=== PATIENT | male | born 1955 | race African-American/Black ===

== ENCOUNTER 2018-10-03 18:27 | Inpatient (IN) | payer MEDICAID, OTHER ==
[~2018-10-03] VITALS: Ht 180.3 cm; Wt 81.9 kg
[2018-10-03 19:05] VITALS: BP 147/76
[2018-10-03 20:08] LABS: ANION GAP 13 mmol/L (5-15); BLOOD UREA NITROGEN 83 mg/dL (7-18); CALCIUM 8.7 MG/DL (8.5-10.1); CARBON DIOXIDE 16 MMOL/L (21-32); CHLORIDE 112 MMOL/L (98-107); CREATININE 6.6 MG/DL (0.55-1.30); POTASSIUM 5.1 MMOL/L (3.5-5.1); SODIUM 141 MMOL/L (136-145)
[2018-10-03 20:10] LABS: EOSINOPHILS % (AUTO) 3.4 % (0.0-3.0); HEMATOCRIT 24.4 % (42.0-52.0); HEMOGLOBIN 8.2 G/DL (14.2-18.0); LYMPHOCYTES % (AUTO) 31.9 % (20.0-45.0); MEAN CORPUSCULAR VOLUME 101 FL (80-99); MONOCYTES % (AUTO) 10.1 % (1.0-10.0); NEUTROPHILS % (AUTO) 53.7 % (45.0-75.0); PLATELET COUNT 150 K/UL (150-450); RED BLOOD COUNT 2.41 M/UL (4.70-6.10); RED CELL DISTRIBUTION WIDTH 12.3 % (11.6-14.8); WHITE BLOOD COUNT 7.7 K/UL (4.8-10.8)
[2018-10-03 20:23] LABS: ALANINE AMINOTRANSFERASE 15 U/L (12-78); ALBUMIN 2.8 G/DL (3.4-5.0); ALBUMIN/GLOBULIN RATIO 0.5 (1.0-2.7); ALKALINE PHOSPHATASE 63 U/L (46-116); ASPARTATE AMINO TRANSFERASE 18 U/L (15-37); BILIRUBIN,TOTAL 0.2 MG/DL (0.2-1.0); CKMB 1.7 NG/ML (0.0-3.6); CREATINE KINASE 87 U/L (26-308)
[2018-10-03 20:45] VITALS: BP 142/92
[2018-10-03 22:00] VITALS: BP 149/91
--- NOTE | 2018-10-03 22:15 | Emergency Room Report ---
History of Present Illness General Chief Complaint: General Complaint Source: Medical Record Present Illness HPI 63-year-old male presents ED for evaluation. Coming from [facility]. Per nursing patient had missed dialysis times one week because he is noncompliant refused to go. Patient has extensive psychiatric history. Upon arrival patient showing no signs of distress. No reported chest pain or shortness of breath. Nonverbal at baseline. No other aggravating relieving factors. No other associated symptoms Allergies: Coded Allergies: FLUPHENAZINE (Verified Allergy, Unknown, 10/03/18) HALOPERIDOL (Verified Allergy, Unknown, 10/03/18) Patient History Past Medical History: psych hx, renal disease, dialysis Past Surgical History: none Pertinent Family History: none Social History: Denies: smoking, alcohol use, drug use Immunizations: UTD Reviewed Nursing Documentation: PMH: Agreed; PSxH: Agreed Nursing Documentation-PMH Past Medical History: No History, Except For Hx Dialysis: Yes - T-Th-Sat / ESRD Review of Systems All Other Systems: limited Physical Exam Vital Signs Date Time Temp Pulse Resp B/P (MAP) Pulse Ox O2 Delivery O2 Flow Rate FiO2 10/03/18 18:28 97.9 85 20 145/88 98 Room Air Sp02 EP Interpretation: reviewed, normal General Appearance: no apparent distress, other - nonverbal Head: normocephalic, atraumatic Eyes: bilateral eye normal inspection, bilateral eye PERRL ENT: hearing grossly normal, normal pharynx, no angioedema, normal voice Neck: full range of motion, supple/symm/no masses Respiratory: chest non-tender, lungs clear, normal breath sounds, speaking full sentences Cardiovascular #1: regular rate, rhythm, no edema Cardiovascular #2: 2+ carotid (R), 2+ carotid (L), 2+ radial (R), 2+ radial (L) , 2+ dorsalis pedis (R), 2+ dorsalis pedis (L) Gastrointestinal: normal bowel sounds, non tender, soft, non-distended, no guarding, no rebound Rectal: deferred Genitourinary: normal inspection, no CVA tenderness Musculoskeletal: back normal, gait/station normal, normal range of motion, non- tender Neurologic: other - nonverbal Psychiatric: other - nonverbal Reflexes: 3+ bicep (R), 3+ bicep (L), 3+ tricep (R), 3+ tricep (L), 3+ knee (R) , 3+ knee (L) Skin: normal color, no rash, warm/dry, well hydrated Lymphatic: no adenopathy Medical Decision Making Diagnostic Impression: Primary Impression: ESRD (end stage renal disease) ER Course Hospital Course 63-year-old M presents ED for dialysis. 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 After initial history and physical I ordered labs, EKG, chest x-ray labs reviewed- BUN/Cr elevated. K 5.1. no leukocytosis, hemoglobin/hematocrit stable EKG - NSR, no acute ischemic changes interpreted by me Chest x-ray- cardiomgaly Case discussed with Dr. Nazario and he agreed to accept the patient to his service for further care and support I. I feel this is a highly complex case requiring extensive working including EKG/Rhythm strip, Xray/CT/US, Blood/urine lab work, repeat exams while in ED, and administration of strong opiates/narcotics for pain control, admission to hospital or close patient follow up. Diagnosis - ESRD admitted to telemetry in serious condition Labs Test 10/03/18 19:25 White Blood Count 7.7 K/UL (4.8-10.8) Red Blood Count 2.41 M/UL (4.70-6.10) Hemoglobin 8.2 G/DL (14.2-18.0) Hematocrit 24.4 % (42.0-52.0) Mean Corpuscular Volume 101 FL (80-99) Mean Corpuscular Hemoglobin 33.9 PG (27.0-31.0) Mean Corpuscular Hemoglobin Concent 33.5 G/DL (32.0-36.0) Red Cell Distribution Width 12.3 % (11.6-14.8) Platelet Count 150 K/UL (150-450) Mean Platelet Volume 6.0 FL (6.5-10.1) Neutrophils (%) (Auto) 53.7 % (45.0-75.0) Lymphocytes (%) (Auto) 31.9 % (20.0-45.0) Monocytes (%) (Auto) 10.1 % (1.0-10.0) Eosinophils (%) (Auto) 3.4 % (0.0-3.0) Basophils (%) (Auto) 1.0 % (0.0-2.0) Sodium Level 141 MMOL/L (136-145) Potassium Level 5.1 MMOL/L (3.5-5.1) Chloride Level 112 MMOL/L (98-107) Carbon Dioxide Level 16 MMOL/L (21-32) Anion Gap 13 mmol/L (5-15) Blood Urea Nitrogen 83 mg/dL (7-18) Creatinine 6.6 MG/DL (0.55-1.30) Estimat Glomerular Filtration Rate 10.4 mL/min (>60) Glucose Level 73 MG/DL (74-106) Calcium Level 8.7 MG/DL (8.5-10.1) Total Bilirubin 0.2 MG/DL (0.2-1.0) Aspartate Amino Transf (AST/SGOT) 18 U/L (15-37) Alanine Aminotransferase (ALT/SGPT) 15 U/L (12-78) Alkaline Phosphatase 63 U/L (46-116) Total Creatine Kinase 87 U/L (26-308) Creatine Kinase MB 1.7 NG/ML (0.0-3.6) Creatine Kinase MB Relative Index 1.9 Troponin I 0.015 ng/mL (0.000-0.056) Pro-B-Type Natriuretic Peptide 3942 pg/mL (0-125) Total Protein 8.2 G/DL (6.4-8.2) Albumin 2.8 G/DL (3.4-5.0) Globulin 5.4 g/dL Albumin/Globulin Ratio 0.5 (1.0-2.7) EKG Diagnostic Results Rate: normal Rhythm: NSR ST Segments: no acute changes ASA given to the pt in ED: No Rhythm Strip Diag. Results EP Interpretation: yes Rhythm: NSR, no PVC's, no ectopy Chest X-Ray Diagnostic Results Chest X-Ray Diagnostic Results : Chest X-Ray Ordered: Yes # of Views/Limited/Complete: 1 View Indication: Shortness of Breath EP Interpretation: Yes Interpretation: no consolidation, no effusion, no pneumothorax, other - cardiomegaly. pulmonary congestion Impression: Other - chf Electronically Signed by: Electronically signed by Tiago Seay MD Last Vital Signs Date Time Temp Pulse Resp B/P (MAP) Pulse Ox O2 Delivery O2 Flow Rate FiO2 10/03/18 21:35 97.9 92 20 142/92 99 Room Air Status: improved Disposition: ADMITTED INPATIENT Condition: Serious Referrals: Bonnie Jones MD (PCP) Tiago Seay MD Oct 03, 2018 22:15
[2018-10-03] MEDS ORDERED: Miralax 17gm pkt ORAL PRN (22:30)
[2018-10-03] MEDS: Docusate 100mg cap ORAL SCH (22:30)
[2018-10-03] MEDS ORDERED: ELIQUIS2.5 MG PO (22:44)
[2018-10-03] MEDS ORDERED: VALPROIC A250 MG/5 M PO (22:44)
[2018-10-03] MEDS ORDERED: NEPHROVITE1 TAB ORAL (22:44)
[2018-10-03] MEDS ORDERED: GERI-KOT8.6 MG PO (22:44)
[2018-10-03] MEDS ORDERED: DECARA50000 UNIT PO (22:44)
[2018-10-03] MEDS ORDERED: PROTONIX40 MG ORAL (22:44)
[2018-10-03] MEDS ORDERED: ZOFRAN4 M3 ORAL (22:44)
[2018-10-03] MEDS ORDERED: IRON325 M1 PO (22:44)
[2018-10-03] MEDS ORDERED: DULCOLAX10 MG RC (22:44)
[2018-10-04] VITALS: BP 134/61
[2018-10-04 04:00] VITALS: BP 111/75
[2018-10-04 08:00] VITALS: BP 123/85
[2018-10-04] MEDS ORDERED: Heparin 5000 units/ml inj SUBQ SCH (09:00)
--- NOTE | 2018-10-04 09:12 | History and Physical ---
History of Present Illness General Date patient seen: Oct 04, 2018 Time patient seen: 09:01 Reason for Hospitalization: General Complaint Present Illness HPI 63 yo male with h/o dvt, esrd on hd, schizophrenia presented from [facility], missed HD for 1 week because he was noncompliant and refused HD. Patient apparently has an extensive psychiatric history and has been seen by psychiatrist in the past. Patient is stable, denies any complaints, denies chest pain or sob. Patient is nonverbal at baseline however when talking to patient he speaks uncomprehendingly.No other aggravating relieving factors. No other associated symptoms. Patient's Potassium was 5.1 on admit, nephrology was consulted by ED. Allergies: Coded Allergies: FLUPHENAZINE (Verified Allergy, Unknown, 10/03/18) HALOPERIDOL (Verified Allergy, Unknown, 10/03/18) Medication History Scheduled Apixaban (Eliquis), 2.5 MG PO BID, (Reported) Cholecalciferol (Vitamin D3) (Decara), 25,000 UNIT PO ONCE A WEEK, (Reported) Ferrous Sulfate (Iron), 325 MG PO DAILY, (Reported) Pantoprazole* (Protonix*), 40 MG ORAL DAILY, (Reported) Sennosides (Magui-Rashida), 8.6 MG PO DAILY, (Reported) Valproate Sodium (Valproic Acid), 500 MG PO TID, (Reported) Vitamin B Cmplx/Vit C/Folic AC (Nephro-Kyree Tablet), 1 TAB ORAL DAILY, (Reported ) Scheduled PRN Ondansetron* (Zofran*), 4 MG ORAL Q6H PRN for Nausea & Vomiting, (Reported) Miscellaneous Medications Bisacodyl (Dulcolax), 10 MG RC, (Reported) Patient History Healthcare decision maker Resuscitation status Full Code Advanced Directive on File Review of Systems Constitutional: Denies: no symptoms, see HPI, chills, sweats, fever, malaise, weakness, other Eye: Denies: no symptoms, see HPI, eye pain, blurred vision, tearing, double vision, nose pain, nose congestion, acuity changes, discharge, other ENT: Denies: no symptoms, see HPI, ear pain, ear discharge, nose pain, nose congestion, throat pain, throat swelling, mouth pain, hearing loss, nasal discharge, other Respiratory: Denies: no symptoms, see HPI, cough, orthopnea, shortness of breath, stridor, wheezing, CRUZ, sputum, other Cardiovascular: Denies: no symptoms, see HPI, chest pain, edema, palpitations, syncope, PND, other Gastrointestinal: Denies: no symptoms, see HPI, abdominal pain, constipation, diarrhea, nausea, vomiting, melena, hematemesis, other Genitourinary: Denies: no symptoms, see HPI, discharge, dysuria, frequency, hematuria, pain, retention, incontinence, urgency, vag bleed/dc, other Musculoskeletal: Denies: no symptoms, see HPI, back pain, gout, joint pain, joint swelling, muscle pain, muscle stiffness, other Skin: Denies: no symptoms, see HPI, rash, change in color, change in hair/nails , dryness, lesions, other Psychiatric: Denies: no symptoms, see HPI, prior hx, anxiety, depressed feelings, emotional problems, SI, HI, hallucinations, other Neurological: Denies: no symptoms, see HPI, headache, numbness, paresthesia, seizure, tingling, tremors, focal weakness, syncope, dizziness, other Endocrine: Denies: no symptoms, see HPI, excessive sweating, flushing, intolerance to temperature, increased thirst, increased urine, unexplained weight loss, other Hematologic/Lymphatic: Denies: no symptoms, see HPI, anemia, blood clots, easy bleeding, easy bruising, swollen glands, diathesis, other Physical Exam General Appearance: no apparent distress, alert Lines, tubes and drains: peripheral HEENT: normocephalic, atraumatic, anicteric, mucous membranes moist, PERRL Neck: non-tender, normal alignment, supple, normal inspection Respiratory/Chest: chest wall non-tender, lungs clear, normal breath sounds, no respiratory distress, no accessory muscle use Cardiovascular/Chest: normal peripheral pulses, normal rate, regular rhythm Abdomen: normal bowel sounds, non tender, soft, no organomegaly, no mass Extremities: normal range of motion, non-tender, normal inspection, no calf tenderness, normal capillary refill 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 normal, no motor/sensory deficits, abnormal gait , alert, unresponsiveness, depressed affect Last 24 Hour Vital Signs Date Time Temp Pulse Resp B/P (MAP) Pulse Ox O2 Delivery O2 Flow Rate FiO2 10/04/18 04:00 82 10/04/18 04:00 98.7 85 20 111/75 (87) 95 10/04/18 00:00 98.4 86 20 134/61 (85) 96 10/03/18 23:20 75 10/03/18 22:47 Room Air 10/03/18 22:00 97.9 74 20 149/91 (110) 97 10/03/18 21:35 97.9 92 20 142/92 99 Room Air 10/03/18 20:45 97.9 92 20 142/92 99 Room Air 10/03/18 19:05 97.9 79 20 147/76 98 Room Air 10/03/18 18:56 85 20 Room Air 10/03/18 18:28 97.9 85 20 145/88 98 Room Air Intake and Output 10/03/18 10/04/18 18:59 06:59 # Voids 1 # Bowel Movements 1 Laboratory Tests Test 10/03/18 19:25 White Blood Count 7.7 K/UL (4.8-10.8) Red Blood Count 2.41 M/UL (4.70-6.10) L Hemoglobin 8.2 G/DL (14.2-18.0) L Hematocrit 24.4 % (42.0-52.0) L Mean Corpuscular Volume 101 FL (80-99) H Mean Corpuscular Hemoglobin 33.9 PG (27.0-31.0) H Mean Corpuscular Hemoglobin Concent 33.5 G/DL (32.0-36.0) Red Cell Distribution Width 12.3 % (11.6-14.8) Platelet Count 150 K/UL (150-450) Mean Platelet Volume 6.0 FL (6.5-10.1) L Neutrophils (%) (Auto) 53.7 % (45.0-75.0) Lymphocytes (%) (Auto) 31.9 % (20.0-45.0) Monocytes (%) (Auto) 10.1 % (1.0-10.0) H Eosinophils (%) (Auto) 3.4 % (0.0-3.0) H Basophils (%) (Auto) 1.0 % (0.0-2.0) Sodium Level 141 MMOL/L (136-145) Potassium Level 5.1 MMOL/L (3.5-5.1) Chloride Level 112 MMOL/L (98-107) H Carbon Dioxide Level 16 MMOL/L (21-32) L Anion Gap 13 mmol/L (5-15) Blood Urea Nitrogen 83 mg/dL (7-18) H Creatinine 6.6 MG/DL (0.55-1.30) H Estimat Glomerular Filtration Rate 10.4 mL/min (>60) Glucose Level 73 MG/DL (74-106) L Calcium Level 8.7 MG/DL (8.5-10.1) Total Bilirubin 0.2 MG/DL (0.2-1.0) Aspartate Amino Transf (AST/SGOT) 18 U/L (15-37) Alanine Aminotransferase (ALT/SGPT) 15 U/L (12-78) Alkaline Phosphatase 63 U/L (46-116) Total Creatine Kinase 87 U/L (26-308) Creatine Kinase MB 1.7 NG/ML (0.0-3.6) Creatine Kinase MB Relative Index 1.9 Troponin I 0.015 ng/mL (0.000-0.056) Pro-B-Type Natriuretic Peptide 3942 pg/mL (0-125) H Total Protein 8.2 G/DL (6.4-8.2) Albumin 2.8 G/DL (3.4-5.0) L Globulin 5.4 g/dL Albumin/Globulin Ratio 0.5 (1.0-2.7) L Height (Feet): 5 Height (Inches): 11.00 Weight (Pounds): 200 Medications Current Medications Medications (Trade) Dose Ordered Sig/Bee Route PRN Reason Start Time Stop Time Status Last Admin Dose Admin Acetaminophen (Tylenol) 650 mg Q4H PRN ORAL Mild Pain (Pain Scale 1-3) 10/03/18 22:30 11/02/18 22:29 Acetaminophen (Tylenol) 650 mg Q4H PRN ORAL fever 10/03/18 22:30 11/02/18 22:29 Apixaban (Eliquis) 5 mg Q12HR ORAL 10/06/18 09:00 11/05/18 08:59 Apixaban (Eliquis) 10 mg Q12HR ORAL 10/04/18 09:00 10/05/18 23:00 Bisacodyl (Dulcolax) 10 mg DAILYPRN PRN RECTAL Constipation 10/03/18 22:30 11/02/18 22:29 Dextrose (Dextrose 50%) 25 ml Q30M PRN IV Hypoglycemia 10/03/18 22:30 11/02/18 22:29 Dextrose (Dextrose 50%) 50 ml Q30M PRN IV Hypoglycemia 10/03/18 22:30 11/02/18 22:29 Docusate Sodium (Colace) 100 mg EVERY 12 HOURS ORAL 10/03/18 22:30 11/02/18 22:29 Ondansetron HCl (Zofran) 4 mg Q6H PRN IVP Nausea & Vomiting 10/03/18 22:30 11/02/18 22:29 Pantoprazole (Protonix) 40 mg DAILY ORAL 10/04/18 09:00 11/03/18 08:59 Polyethylene Glycol (Miralax) 17 gm DAILYPRN PRN ORAL Constipation 10/03/18 22:30 11/02/18 22:29 Valproic Acid (Depakene) 500 mg THREE TIMES A DAY ORAL 10/04/18 09:00 11/03/18 08:59 Vitamin B Complex/ Vit C/Folic Acid (Nephrovite) 1 tab DAILY ORAL 10/04/18 09:00 11/03/18 08:59 Assessment/Plan Problem List: (1) Psychiatric disorder Assessment & Plan: schizophrenia psych consult will need additional med recs ICD Codes: F99 - Mental disorder, not otherwise specified SNOMED: 76585768, 640617520 (2) ESRD (end stage renal disease) Assessment & Plan: on HD has been refusing HD for 1 week K 5.1 nephrology consulted ICD Codes: N18.6 - End stage renal disease SNOMED: 18518950 (3) Hyperkalemia Assessment & Plan: K 5.1 on admit monitor labs HD per nephro ICD Codes: E87.5 - Hyperkalemia SNOMED: 86025357 (4) DVT (deep venous thrombosis) Assessment & Plan: resume home eliquis ICD Codes: I82.409 - Acute embolism and thrombosis of unspecified deep veins of unspecified lower extremity SNOMED: 842943236 Qualifiers: Qualified Codes: I82.509 - Chronic embolism and thrombosis of unspecified deep veins of unspecified lower extremity (5) Schizophrenia Assessment & Plan: psych consulted stable ICD Codes: F20.9 - Schizophrenia, unspecified SNOMED: 94136995 (6) Noncompliance of patient with renal dialysis Assessment & Plan: noncompliant with HD missed hD for one week likely due to psych issues/schizophrenia ICD Codes: Z91.15 - Patient's noncompliance with renal dialysis SNOMED: 314759592798479 Status: stable Assessment/Plan ppx: eliquis diet; renal hd i have spent over 70 minutes regarding patient care and counseling along with over 45 minutes of face to face time. Aleshia Shaffer MD Oct 04, 2018 09:12
[2018-10-04 09:46] LABS: HEMATOCRIT 23.1 % (42.0-52.0); HEMOGLOBIN 7.7 G/DL (14.2-18.0); MEAN CORPUSCULAR VOLUME 97 FL (80-99); PLATELET COUNT 206 K/UL (150-450); RED BLOOD COUNT 2.37 M/UL (4.70-6.10); RED CELL DISTRIBUTION WIDTH 11.9 % (11.6-14.8)
[2018-10-04] MEDS: Nephrovite tab (Rena-Vite) ORAL SCH (09:48)
[2018-10-04] MEDS: Valproic Acid 250mg/5ml Liquid ORAL SCH ×3 (09:49→18:45)
[2018-10-04] MEDS: Docusate 100mg cap ORAL SCH ×3 (09:49→18:45)
[2018-10-04 10:11] LABS: ANION GAP 13 mmol/L (5-15); BLOOD UREA NITROGEN 79 mg/dL (7-18); CALCIUM 8.9 MG/DL (8.5-10.1); CARBON DIOXIDE 18 MMOL/L (21-32); CHLORIDE 113 MMOL/L (98-107); CREATININE 6.8 MG/DL (0.55-1.30); PHOSPHORUS 3.4 MG/DL (2.5-4.9); POTASSIUM 4.8 MMOL/L (3.5-5.1); SODIUM 144 MMOL/L (136-145)
--- NOTE | 2018-10-04 10:14 | Consultation ---
Consult Note Consult Note asked to evaluate for dialysis management 63 yo male with h/o dvt, esrd on hd, schizophrenia presented from [facility], missed HD for 1 week because he was noncompliant and refused HD. Patient apparently has an extensive psychiatric history and has been seen by psychiatrist in the past. Patient is stable, denies any complaints, denies chest pain or sob. Patient is nonverbal at baseline however when talking to patient he speaks uncomprehendingly.No other aggravating relieving factors. No other associated symptoms. Patient's Potassium was 5.1 on admit, nephrology was consulted by ED. Allergies: Coded Allergies: FLUPHENAZINE (Verified Allergy, Unknown, 10/03/18) HALOPERIDOL (Verified Allergy, Unknown, 10/03/18) Assessment/Plan - ESRD (end stage renal disease) - Noncompliance of patient with renal dialysis -Hyperkalemia - Anemia of CKD -DVT (deep venous thrombosis) -Schizophrenia / Psychiatric disorder HD today / refusing ! will attempt tomorrow Per Psych adjust meds per orders Elbert Deng MD Oct 04, 2018 10:14
[2018-10-04 10:54] LABS: FERRITIN 741 NG/ML (8-388)
[2018-10-04] MEDS: Eliquis 2.5mg tablet ORAL SCH ×2 (11:16→21:10)
[2018-10-04 11:18] LABS: % IRON SATURATION 38 % (15-50); IRON 59 ug/dL (50-175); TOTAL IRON BINDING CAPACITY 155 ug/dL (250-450)
--- NOTE | 2018-10-04 11:54 | Diagnostic Imaging Report ---
Indication: Chest pain Technique: One view of the chest Comparison: None Findings: Patient is rotated to the right. There is a right jugular temporary dialysis catheter. There is equivocal perihilar congestive change on the left. The lungs and pleural spaces are otherwise clear. The heart size is upper limits of normal. Impression: Equivocal perihilar congestion Other findings as noted
[2018-10-04 12:00] VITALS: BP 119/70
--- NOTE | 2018-10-04 14:01 | Consultation ---
History of Present Illness General Chief Complaint: General Complaint Present Illness HPI 63 yo male with h/o dvt, esrd on hd, schizophrenia presented from [facility], missed HD for 1 week because he was noncompliant and refused HD. the pt is delusional and grandiose. the pt does not have si/hi Allergies: Coded Allergies: FLUPHENAZINE (Verified Allergy, Unknown, 10/03/18) HALOPERIDOL (Verified Allergy, Unknown, 10/03/18) Medication History Scheduled Apixaban (Eliquis), 2.5 MG PO BID, (Reported) Cholecalciferol (Vitamin D3) (Decara), 25,000 UNIT PO ONCE A WEEK, (Reported) Ferrous Sulfate (Iron), 325 MG PO DAILY, (Reported) Pantoprazole* (Protonix*), 40 MG ORAL DAILY, (Reported) Sennosides (Magui-Rashida), 8.6 MG PO DAILY, (Reported) Valproate Sodium (Valproic Acid), 500 MG PO TID, (Reported) Vitamin B Cmplx/Vit C/Folic AC (Nephro-Kyree Tablet), 1 TAB ORAL DAILY, (Reported ) Scheduled PRN Ondansetron* (Zofran*), 4 MG ORAL Q6H PRN for Nausea & Vomiting, (Reported) Miscellaneous Medications Bisacodyl (Dulcolax), 10 MG RC, (Reported) Patient History Limited by: medical condition History Provided By: Patient, Medical Record, PMD Healthcare decision maker Resuscitation status Full Code Advanced Directive on File Past Medical/Surgical History Past Medical/Surgical History: (1) psych (2) Hyperkalemia (3) Psychiatric disorder (4) ESRD (end stage renal disease) (5) Schizophrenia (6) DVT (deep venous thrombosis) (7) Noncompliance of patient with renal dialysis Review of Systems Psychiatric: Reports: prior hx, anxiety, depressed feelings, hallucinations Physical Exam General Appearance: alert, confused, agitated Neurologic: depressed affect Last 24 Hour Vital Signs Date Time Temp Pulse Resp B/P (MAP) Pulse Ox O2 Delivery O2 Flow Rate FiO2 10/04/18 08:10 Room Air 10/04/18 08:00 99.4 85 16 123/85 (98) 99 10/04/18 04:00 82 10/04/18 04:00 98.7 85 20 111/75 (87) 95 10/04/18 00:00 98.4 86 20 134/61 (85) 96 10/03/18 23:20 75 10/03/18 22:47 Room Air 10/03/18 22:00 97.9 74 20 149/91 (110) 97 10/03/18 21:35 97.9 92 20 142/92 99 Room Air 10/03/18 20:45 97.9 92 20 142/92 99 Room Air 10/03/18 19:05 97.9 79 20 147/76 98 Room Air 10/03/18 18:56 85 20 Room Air 10/03/18 18:28 97.9 85 20 145/88 98 Room Air Intake and Output 10/03/18 10/04/18 19:00 07:00 # Voids 1 # Bowel Movements 1 Laboratory Tests Test 10/03/18 19:25 10/04/18 08:45 White Blood Count 7.7 K/UL (4.8-10.8) 8.0 K/UL (4.8-10.8) Red Blood Count 2.41 M/UL (4.70-6.10) L 2.37 M/UL (4.70-6.10) L Hemoglobin 8.2 G/DL (14.2-18.0) L 7.7 G/DL (14.2-18.0) L Hematocrit 24.4 % (42.0-52.0) L 23.1 % (42.0-52.0) L Mean Corpuscular Volume 101 FL (80-99) H 97 FL (80-99) Mean Corpuscular Hemoglobin 33.9 PG (27.0-31.0) H 32.6 PG (27.0-31.0) H Mean Corpuscular Hemoglobin Concent 33.5 G/DL (32.0-36.0) 33.5 G/DL (32.0-36.0) Red Cell Distribution Width 12.3 % (11.6-14.8) 11.9 % (11.6-14.8) Platelet Count 150 K/UL (150-450) 206 K/UL (150-450) Mean Platelet Volume 6.0 FL (6.5-10.1) L 6.0 FL (6.5-10.1) L Neutrophils (%) (Auto) 53.7 % (45.0-75.0) % (45.0-75.0) Lymphocytes (%) (Auto) 31.9 % (20.0-45.0) % (20.0-45.0) Monocytes (%) (Auto) 10.1 % (1.0-10.0) H % (1.0-10.0) Eosinophils (%) (Auto) 3.4 % (0.0-3.0) H % (0.0-3.0) Basophils (%) (Auto) 1.0 % (0.0-2.0) % (0.0-2.0) Sodium Level 141 MMOL/L (136-145) 144 MMOL/L (136-145) Potassium Level 5.1 MMOL/L (3.5-5.1) 4.8 MMOL/L (3.5-5.1) Chloride Level 112 MMOL/L (98-107) H 113 MMOL/L (98-107) H Carbon Dioxide Level 16 MMOL/L (21-32) L 18 MMOL/L (21-32) L Anion Gap 13 mmol/L (5-15) 13 mmol/L (5-15) Blood Urea Nitrogen 83 mg/dL (7-18) H 79 mg/dL (7-18) H Creatinine 6.6 MG/DL (0.55-1.30) H 6.8 MG/DL (0.55-1.30) H Estimat Glomerular Filtration Rate 10.4 mL/min (>60) 10.1 mL/min (>60) Glucose Level 73 MG/DL (74-106) L 96 MG/DL (74-106) Calcium Level 8.7 MG/DL (8.5-10.1) 8.9 MG/DL (8.5-10.1) Total Bilirubin 0.2 MG/DL (0.2-1.0) Aspartate Amino Transf (AST/SGOT) 18 U/L (15-37) Alanine Aminotransferase (ALT/SGPT) 15 U/L (12-78) Alkaline Phosphatase 63 U/L (46-116) Total Creatine Kinase 87 U/L (26-308) Creatine Kinase MB 1.7 NG/ML (0.0-3.6) Creatine Kinase MB Relative Index 1.9 Troponin I 0.015 ng/mL (0.000-0.056) Pro-B-Type Natriuretic Peptide 3942 pg/mL (0-125) H Total Protein 8.2 G/DL (6.4-8.2) Albumin 2.8 G/DL (3.4-5.0) L Globulin 5.4 g/dL Albumin/Globulin Ratio 0.5 (1.0-2.7) L Differential Total Cells Counted 100 Neutrophils % (Manual) 61 % (45-75) Lymphocytes % (Manual) 26 % (20-45) Monocytes % (Manual) 6 % (1-10) Eosinophils % (Manual) 6 % (0-3) H Basophils % (Manual) 1 % (0-2) Band Neutrophils 0 % (0-8) Platelet Estimate Adequate Platelet Morphology Normal Hypochromasia 3+ Anisocytosis 1+ Spherocytes 1+ Phosphorus Level 3.4 MG/DL (2.5-4.9) Magnesium Level 1.7 MG/DL (1.8-2.4) L Iron Level 59 ug/dL (50-175) Total Iron Binding Capacity 155 ug/dL (250-450) L Percent Iron Saturation 38 % (15-50) Unsaturated Iron Binding 96 ug/dL (112-346) L Ferritin 741 NG/ML (8-388) H C-Reactive Protein, Quantitative 1.0 mg/dL (0.00-0.90) H Vitamin B12 Level 246 PG/ML (193-986) Folate 36.8 NG/ML (8.6-58.9) Height (Feet): 5 Height (Inches): 11.00 Weight (Pounds): 200 Medications Current Medications Medications (Trade) Dose Ordered Sig/Bee Route PRN Reason Start Time Stop Time Status Last Admin Dose Admin Acetaminophen (Tylenol) 650 mg Q4H PRN ORAL Mild Pain (Pain Scale 1-3) 10/03/18 22:30 11/02/18 22:29 Acetaminophen (Tylenol) 650 mg Q4H PRN ORAL fever 10/03/18 22:30 11/02/18 22:29 Apixaban (Eliquis) 5 mg Q12HR ORAL 10/06/18 09:00 11/05/18 08:59 Apixaban (Eliquis) 10 mg Q12HR ORAL 10/04/18 09:00 10/05/18 23:00 10/04/18 11:16 Bisacodyl (Dulcolax) 10 mg DAILYPRN PRN RECTAL Constipation 10/03/18 22:30 11/02/18 22:29 Dextrose (Dextrose 50%) 25 ml Q30M PRN IV Hypoglycemia 10/03/18 22:30 11/02/18 22:29 Dextrose (Dextrose 50%) 50 ml Q30M PRN IV Hypoglycemia 10/03/18 22:30 11/02/18 22:29 Docusate Sodium (Colace) 100 mg TID ORAL 10/04/18 13:00 11/02/18 22:29 Epoetin Jonas (Procrit (for ESRD on dialysis)) 10,000 units WED-WED-WED SUBQ 10/05/18 21:00 11/04/18 20:59 Iron Sucrose 100 mg/Sodium Chloride 60 ml @ 240 mls/hr BEDTIME IV 10/04/18 21:00 10/08/18 21:14 Ondansetron HCl (Zofran) 4 mg Q6H PRN IVP Nausea & Vomiting 10/03/18 22:30 11/02/18 22:29 Pantoprazole (Protonix) 40 mg DAILY ORAL 10/04/18 09:00 11/03/18 08:59 10/04/18 09:48 Polyethylene Glycol (Miralax) 17 gm DAILYPRN PRN ORAL Constipation 10/03/18 22:30 11/02/18 22:29 Valproic Acid (Depakene) 500 mg THREE TIMES A DAY ORAL 10/04/18 09:00 11/03/18 08:59 10/04/18 09:49 Vitamin B Complex/ Vit C/Folic Acid (Nephrovite) 1 tab DAILY ORAL 10/04/18 09:00 11/03/18 08:59 10/04/18 09:48 Assessment/Plan Problem List: (1) Schizophrenia ICD Codes: F20.9 - Schizophrenia, unspecified SNOMED: 58512902 Assessment/Plan haldol dec risperdal depakote valporic acid level Panda Zambrano MD Oct 04, 2018 14:01
--- NOTE | 2018-10-04 14:22 | Consultation ---
Consult Note Consult Note HEMATOLOGY-ONCOLOGY CONSULTATION REFERRING PHYSICIAN: Marcos Jones REASON FOR CONSULT: Anemia, DVT DATE OF CONSULT: 10/04/2018 HPI 63 yo male with h/o dvt, esrd on hd, schizophrenia presented from [facility], missed HD for 1 week because he was noncompliant and refused HD. Patient apparently has an extensive psychiatric history and has been seen by psychiatrist in the past. Patient is stable, denies any complaints, denies chest pain or sob. Patient is nonverbal at baseline however when talking to patient he speaks uncomprehendingly.No other aggravating relieving factors. No other associated symptoms. Hematology services consulted for the evaluation of DVT and anemia. Labs have been reviewed. Pt is currently on Eliquis and IV iron. Allergies: Coded Allergies: FLUPHENAZINE (Verified Allergy, Unknown, 10/03/18) HALOPERIDOL (Verified Allergy, Unknown, 10/03/18) Medication History Scheduled Apixaban (Eliquis), 2.5 MG PO BID, (Reported) Cholecalciferol (Vitamin D3) (Decara), 25,000 UNIT PO ONCE A WEEK, (Reported) Ferrous Sulfate (Iron), 325 MG PO DAILY, (Reported) Pantoprazole* (Protonix*), 40 MG ORAL DAILY, (Reported) Sennosides (Magui-Rashida), 8.6 MG PO DAILY, (Reported) Valproate Sodium (Valproic Acid), 500 MG PO TID, (Reported) Vitamin B Cmplx/Vit C/Folic AC (Nephro-Kyree Tablet), 1 TAB ORAL DAILY, (Reported ) Scheduled PRN Ondansetron* (Zofran*), 4 MG ORAL Q6H PRN for Nausea & Vomiting, (Reported) Miscellaneous Medications Bisacodyl (Dulcolax), 10 MG RC, (Reported) Patient History Healthcare decision maker Resuscitation status Full Code Advanced Directive on File Review of Systems Constitutional: Denies: no symptoms, see HPI, chills, sweats, fever, malaise, weakness, other Eye: Denies: no symptoms, see HPI, eye pain, blurred vision, tearing, double vision, nose pain, nose congestion, acuity changes, discharge, other ENT: Denies: no symptoms, see HPI, ear pain, ear discharge, nose pain, nose congestion, throat pain, throat swelling, mouth pain, hearing loss, nasal discharge, other Respiratory: Denies: no symptoms, see HPI, cough, orthopnea, shortness of breath, stridor, wheezing, CRUZ, sputum, other Cardiovascular: Denies: no symptoms, see HPI, chest pain, edema, palpitations, syncope, PND, other Gastrointestinal: Denies: no symptoms, see HPI, abdominal pain, constipation, diarrhea, nausea, vomiting, melena, hematemesis, other Genitourinary: Denies: no symptoms, see HPI, discharge, dysuria, frequency, hematuria, pain, retention, incontinence, urgency, vag bleed/dc, other Musculoskeletal: Denies: no symptoms, see HPI, back pain, gout, joint pain, joint swelling, muscle pain, muscle stiffness, other Skin: Denies: no symptoms, see HPI, rash, change in color, change in hair/nails , dryness, lesions, other Psychiatric: Denies: no symptoms, see HPI, prior hx, anxiety, depressed feelings, emotional problems, SI, HI, hallucinations, other Neurological: Denies: no symptoms, see HPI, headache, numbness, paresthesia, seizure, tingling, tremors, focal weakness, syncope, dizziness, other Endocrine: Denies: no symptoms, see HPI, excessive sweating, flushing, intolerance to temperature, increased thirst, increased urine, unexplained weight loss, other Hematologic/Lymphatic: Denies: no symptoms, see HPI, anemia, blood clots, easy bleeding, easy bruising, swollen glands, diathesis, other Physical Exam General Appearance: no apparent distress, alert Lines, tubes and drains: peripheral HEENT: normocephalic, atraumatic, anicteric, mucous membranes moist, PERRL Neck: non-tender, normal alignment, supple, normal inspection Respiratory/Chest: chest wall non-tender, lungs clear, normal breath sounds, no respiratory distress, no accessory muscle use Cardiovascular/Chest: normal peripheral pulses, normal rate, regular rhythm Abdomen: normal bowel sounds, non tender, soft, no organomegaly, no mass Extremities: normal range of motion, non-tender, normal inspection, no calf tenderness, normal capillary refill 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, no motor/sensory deficits, abnormal gait , alert, unresponsiveness, depressed affect Laboratory Tests Test 10/03/18 19:25 10/04/18 08:45 White Blood Count 7.7 K/UL (4.8-10.8) 8.0 K/UL (4.8-10.8) Red Blood Count 2.41 M/UL (4.70-6.10) L 2.37 M/UL (4.70-6.10) L Hemoglobin 8.2 G/DL (14.2-18.0) L 7.7 G/DL (14.2-18.0) L Hematocrit 24.4 % (42.0-52.0) L 23.1 % (42.0-52.0) L Mean Corpuscular Volume 101 FL (80-99) H 97 FL (80-99) Mean Corpuscular Hemoglobin 33.9 PG (27.0-31.0) H 32.6 PG (27.0-31.0) H Mean Corpuscular Hemoglobin Concent 33.5 G/DL (32.0-36.0) 33.5 G/DL (32.0-36.0) Red Cell Distribution Width 12.3 % (11.6-14.8) 11.9 % (11.6-14.8) Platelet Count 150 K/UL (150-450) 206 K/UL (150-450) Mean Platelet Volume 6.0 FL (6.5-10.1) L 6.0 FL (6.5-10.1) L Neutrophils (%) (Auto) 53.7 % (45.0-75.0) % (45.0-75.0) Lymphocytes (%) (Auto) 31.9 % (20.0-45.0) % (20.0-45.0) Monocytes (%) (Auto) 10.1 % (1.0-10.0) H % (1.0-10.0) Eosinophils (%) (Auto) 3.4 % (0.0-3.0) H % (0.0-3.0) Basophils (%) (Auto) 1.0 % (0.0-2.0) % (0.0-2.0) Sodium Level 141 MMOL/L (136-145) 144 MMOL/L (136-145) Potassium Level 5.1 MMOL/L (3.5-5.1) 4.8 MMOL/L (3.5-5.1) Chloride Level 112 MMOL/L (98-107) H 113 MMOL/L (98-107) H Carbon Dioxide Level 16 MMOL/L (21-32) L 18 MMOL/L (21-32) L Anion Gap 13 mmol/L (5-15) 13 mmol/L (5-15) Blood Urea Nitrogen 83 mg/dL (7-18) H 79 mg/dL (7-18) H Creatinine 6.6 MG/DL (0.55-1.30) H 6.8 MG/DL (0.55-1.30) H Estimat Glomerular Filtration Rate 10.4 mL/min (>60) 10.1 mL/min (>60) Glucose Level 73 MG/DL (74-106) L 96 MG/DL (74-106) Calcium Level 8.7 MG/DL (8.5-10.1) 8.9 MG/DL (8.5-10.1) Total Bilirubin 0.2 MG/DL (0.2-1.0) Aspartate Amino Transf (AST/SGOT) 18 U/L (15-37) Alanine Aminotransferase (ALT/SGPT) 15 U/L (12-78) Alkaline Phosphatase 63 U/L (46-116) Total Creatine Kinase 87 U/L (26-308) Creatine Kinase MB 1.7 NG/ML (0.0-3.6) Creatine Kinase MB Relative Index 1.9 Troponin I 0.015 ng/mL (0.000-0.056) Pro-B-Type Natriuretic Peptide 3942 pg/mL (0-125) H Total Protein 8.2 G/DL (6.4-8.2) Albumin 2.8 G/DL (3.4-5.0) L Globulin 5.4 g/dL Albumin/Globulin Ratio 0.5 (1.0-2.7) L Differential Total Cells Counted 100 Neutrophils % (Manual) 61 % (45-75) Lymphocytes % (Manual) 26 % (20-45) Monocytes % (Manual) 6 % (1-10) Eosinophils % (Manual) 6 % (0-3) H Basophils % (Manual) 1 % (0-2) Band Neutrophils 0 % (0-8) Platelet Estimate Adequate Platelet Morphology Normal Hypochromasia 3+ Anisocytosis 1+ Spherocytes 1+ Phosphorus Level 3.4 MG/DL (2.5-4.9) Magnesium Level 1.7 MG/DL (1.8-2.4) L Iron Level 59 ug/dL (50-175) Total Iron Binding Capacity 155 ug/dL (250-450) L Percent Iron Saturation 38 % (15-50) Unsaturated Iron Binding 96 ug/dL (112-346) L Ferritin 741 NG/ML (8-388) H C-Reactive Protein, Quantitative 1.0 mg/dL (0.00-0.90) H Vitamin B12 Level 246 PG/ML (193-986) Folate 36.8 NG/ML (8.6-58.9) Current Medications Medications (Trade) Dose Ordered Sig/Bee Route PRN Reason Start Time Stop Time Status Last Admin Dose Admin Acetaminophen (Tylenol) 650 mg Q4H PRN ORAL Mild Pain (Pain Scale 1-3) 10/03/18 22:30 11/02/18 22:29 Acetaminophen (Tylenol) 650 mg Q4H PRN ORAL fever 10/03/18 22:30 11/02/18 22:29 Apixaban (Eliquis) 5 mg Q12HR ORAL 10/06/18 09:00 11/05/18 08:59 Apixaban (Eliquis) 10 mg Q12HR ORAL 10/04/18 09:00 10/05/18 23:00 Bisacodyl (Dulcolax) 10 mg DAILYPRN PRN RECTAL Constipation 10/03/18 22:30 11/02/18 22:29 Dextrose (Dextrose 50%) 25 ml Q30M PRN IV Hypoglycemia 10/03/18 22:30 11/02/18 22:29 Dextrose (Dextrose 50%) 50 ml Q30M PRN IV Hypoglycemia 10/03/18 22:30 11/02/18 22:29 Docusate Sodium (Colace) 100 mg EVERY 12 HOURS ORAL 10/03/18 22:30 11/02/18 22:29 Ondansetron HCl (Zofran) 4 mg Q6H PRN IVP Nausea & Vomiting 10/03/18 22:30 11/02/18 22:29 Pantoprazole (Protonix) 40 mg DAILY ORAL 10/04/18 09:00 11/03/18 08:59 Polyethylene Glycol (Miralax) 17 gm DAILYPRN PRN ORAL Constipation 10/03/18 22:30 11/02/18 22:29 Valproic Acid (Depakene) 500 mg THREE TIMES A DAY ORAL 10/04/18 09:00 11/03/18 08:59 Vitamin B Complex/ Vit C/Folic Acid (Nephrovite) 1 tab DAILY ORAL 10/04/18 09:00 11/03/18 08:59 ASSESSMENT AND RECOMMENDATIONS # Anemia of chronic disease due to underlying chronic medical issues, multifactorial --> Anemia w/u has been reviewed. Ferritin at 741 --> No evidence of hemolysis is noted, peripheral smear has been reviewed. --> Hgb goal >7. Transfuse prn. --> Pt on IV iron x5 days --> Cont po folic acid daily --> Cont Procrit 3x a week per nephro # DVT. Pt is on eliquis. --> has not worsened # ESRD. On HD --> Nephrology is following. Appreciate recs. --> Pt is noncompliant with HD # Psych disorder. Psych to follow. # Hyperkalemia. K 5.1 at admission # Noncompliance GREATLY APPRECIATE CONSULTATION. Ulices Lanza MD Oct 04, 2018 14:21
[2018-10-04] MEDS ORDERED: Haloperidol Decanoate 50mg Inj IM SCH (15:00)
[2018-10-04 16:00] VITALS: BP 134/81
[2018-10-04 20:00] VITALS: BP 115/75
[2018-10-04] MEDS: Iron Sucrose 100 MG in NS 55 ML IV SCH (21:10)
[2018-10-05] VITALS: BP 124/70
[2018-10-05] MEDS: Iron Sucrose 100 MG in NS 55 ML IV SCH ×2 (00:33→20:29)
[2018-10-05 04:00] VITALS: BP 139/69
[2018-10-05 06:32] LABS: BASOPHILS % (AUTO) 0.5 % (0.0-2.0); EOSINOPHILS % (AUTO) 3.2 % (0.0-3.0); HEMATOCRIT 23.5 % (42.0-52.0); LYMPHOCYTES % (AUTO) 29.6 % (20.0-45.0); MEAN CORPUSCULAR VOLUME 97 FL (80-99); MONOCYTES % (AUTO) 8.2 % (1.0-10.0); NEUTROPHILS % (AUTO) 58.5 % (45.0-75.0); PLATELET COUNT 200 K/UL (150-450); RED BLOOD COUNT 2.43 M/UL (4.70-6.10); RED CELL DISTRIBUTION WIDTH 11.4 % (11.6-14.8); WHITE BLOOD COUNT 9.1 K/UL (4.8-10.8)
[2018-10-05 07:16] LABS: ALANINE AMINOTRANSFERASE 14 U/L (12-78); ALBUMIN 2.6 G/DL (3.4-5.0); ALBUMIN/GLOBULIN RATIO 0.5 (1.0-2.7); ALKALINE PHOSPHATASE 56 U/L (46-116); ANION GAP 12 mmol/L (5-15); ASPARTATE AMINO TRANSFERASE 13 U/L (15-37); BILIRUBIN,TOTAL 0.3 MG/DL (0.2-1.0); BLOOD UREA NITROGEN 84 mg/dL (7-18); CALCIUM 8.9 MG/DL (8.5-10.1); CARBON DIOXIDE 18 MMOL/L (21-32); CHLORIDE 113 MMOL/L (98-107); CHOLESTEROL 120 MG/DL (< 200); CREATININE 6.7 MG/DL (0.55-1.30); GAMMA GLUTAMYL TRANSPEPTIDASE 24 U/L (5-85); HDL CHOLESTEROL 45 MG/DL (40-60); PHOSPHORUS 3.6 MG/DL (2.5-4.9); SODIUM 143 MMOL/L (136-145); TRIGLYCERIDES 68 MG/DL (30-150)
[2018-10-05 08:00] VITALS: BP 134/83
--- NOTE | 2018-10-05 08:57 | History and Physical ---
History of Present Illness General Date patient seen: Oct 05, 2018 Time patient seen: 08:56 Reason for Hospitalization: General Complaint Present Illness HPI 63 yo male with h/o dvt, esrd on hd, schizophrenia presented from [facility], missed HD for 1 week because he was noncompliant and refused HD. Patient apparently has an extensive psychiatric history and has been seen by psychiatrist in the past. Patient is stable, denies any complaints, denies chest pain or sob. Patient is nonverbal at baseline however when talking to patient he speaks uncomprehendingly.No other aggravating relieving factors. No other associated symptoms. Patient's Potassium was 5.1 on admit, nephrology was consulted by ED. Patient was admitted as observation status in anticipation that patient would receive HD and would be discharge back to [facility] however patient had refused HD overnight. psych has also evaluated the patient and started him on psych medications. patient seems a bit more calm today however still says things that do not make sense in terms of the conversation patient states he may be willing to undergo HD today. he denies any chest pain or sob, denies any complaints social hx: reviewed, denies smoking, alcohol use or drug use fam hx: reviewed, denies any sig past fam hx to me code status reviewed, would like to remain full code. Allergies: Coded Allergies: FLUPHENAZINE (Verified Allergy, Unknown, 10/03/18) HALOPERIDOL (Verified Allergy, Unknown, 10/03/18) Medication History Scheduled Apixaban (Eliquis), 2.5 MG PO BID, (Reported) Cholecalciferol (Vitamin D3) (Decara), 25,000 UNIT PO ONCE A WEEK, (Reported) Ferrous Sulfate (Iron), 325 MG PO DAILY, (Reported) Pantoprazole* (Protonix*), 40 MG ORAL DAILY, (Reported) Sennosides (Magui-Rashida), 8.6 MG PO DAILY, (Reported) Valproate Sodium (Valproic Acid), 500 MG PO TID, (Reported) Vitamin B Cmplx/Vit C/Folic AC (Nephro-Kyree Tablet), 1 TAB ORAL DAILY, (Reported ) Scheduled PRN Ondansetron* (Zofran*), 4 MG ORAL Q6H PRN for Nausea & Vomiting, (Reported) Miscellaneous Medications Bisacodyl (Dulcolax), 10 MG RC, (Reported) Patient History History Provided By: Patient Healthcare decision maker Resuscitation status Full Code Advanced Directive on File Review of Systems ROS Narrative 14 point ROS completed and reviewed, negative except per HPI Physical Exam HEENT: normocephalic, atraumatic, anicteric, mucous membranes moist, PERRL Neck: non-tender, normal alignment, supple, normal inspection, limited range of motion Respiratory/Chest: chest wall non-tender, lungs clear, normal breath sounds, no respiratory distress, no accessory muscle use Cardiovascular/Chest: normal peripheral pulses, normal rate, regular rhythm Abdomen: normal bowel sounds, non tender, soft, no organomegaly, no mass Extremities: normal range of motion, non-tender, normal inspection, no calf tenderness Skin Exam: normal pigmentation 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, no motor/sensory deficits, alert, responsive, normal mood/affect Last 24 Hour Vital Signs Date Time Temp Pulse Resp B/P (MAP) Pulse Ox O2 Delivery O2 Flow Rate FiO2 10/05/18 04:00 76 10/05/18 04:00 99.8 88 18 139/69 (92) 95 10/05/18 00:00 83 10/05/18 00:00 98.9 88 18 124/70 (88) 96 10/04/18 21:00 Room Air 10/04/18 20:00 98.9 90 18 115/75 (88) 97 10/04/18 20:00 94 10/04/18 16:12 85 10/04/18 16:00 99.8 79 18 134/81 (98) 97 10/04/18 12:00 99.1 80 18 119/70 (86) 99 10/04/18 11:27 86 Intake and Output 10/04/18 10/05/18 18:59 06:59 Intake Total 360 ml Output Total 1150 ml Balance -790 ml Intake Oral 360 ml Output Urine Total 1150 ml Laboratory Tests Test 10/05/18 06:09 White Blood Count 9.1 K/UL (4.8-10.8) Red Blood Count 2.43 M/UL (4.70-6.10) L Hemoglobin 8.0 G/DL (14.2-18.0) L Hematocrit 23.5 % (42.0-52.0) L Mean Corpuscular Volume 97 FL (80-99) Mean Corpuscular Hemoglobin 32.8 PG (27.0-31.0) H Mean Corpuscular Hemoglobin Concent 33.8 G/DL (32.0-36.0) Red Cell Distribution Width 11.4 % (11.6-14.8) L Platelet Count 200 K/UL (150-450) Mean Platelet Volume 5.6 FL (6.5-10.1) L Neutrophils (%) (Auto) 58.5 % (45.0-75.0) Lymphocytes (%) (Auto) 29.6 % (20.0-45.0) Monocytes (%) (Auto) 8.2 % (1.0-10.0) Eosinophils (%) (Auto) 3.2 % (0.0-3.0) H Basophils (%) (Auto) 0.5 % (0.0-2.0) Sodium Level 143 MMOL/L (136-145) Potassium Level 5.0 MMOL/L (3.5-5.1) Chloride Level 113 MMOL/L (98-107) H Carbon Dioxide Level 18 MMOL/L (21-32) L Anion Gap 12 mmol/L (5-15) Blood Urea Nitrogen 84 mg/dL (7-18) H Creatinine 6.7 MG/DL (0.55-1.30) H Estimat Glomerular Filtration Rate 10.2 mL/min (>60) Glucose Level 71 MG/DL (74-106) L Hemoglobin A1c 4.4 % (4.3-6.0) Uric Acid 8.3 MG/DL (2.6-7.2) H Calcium Level 8.9 MG/DL (8.5-10.1) Phosphorus Level 3.6 MG/DL (2.5-4.9) Magnesium Level 1.6 MG/DL (1.8-2.4) L Total Bilirubin 0.3 MG/DL (0.2-1.0) Gamma Glutamyl Transpeptidase 24 U/L (5-85) Aspartate Amino Transf (AST/SGOT) 13 U/L (15-37) L Alanine Aminotransferase (ALT/SGPT) 14 U/L (12-78) Alkaline Phosphatase 56 U/L (46-116) Pro-B-Type Natriuretic Peptide 6689 pg/mL (0-125) H Total Protein 7.9 G/DL (6.4-8.2) Albumin 2.6 G/DL (3.4-5.0) L Globulin 5.3 g/dL Albumin/Globulin Ratio 0.5 (1.0-2.7) L Triglycerides Level 68 MG/DL (30-150) Cholesterol Level 120 MG/DL (< 200) LDL Cholesterol 74 mg/dL (<100) HDL Cholesterol 45 MG/DL (40-60) Cholesterol/HDL Ratio 2.7 (3.3-4.4) L Thyroid Stimulating Hormone (TSH) 0.485 uiU/mL (0.358-3.740) Valproic Acid (Depakene) Level 20 MCG/ML (50-100) L Height (Feet): 5 Height (Inches): 11.00 Weight (Pounds): 191 Medications Current Medications Medications (Trade) Dose Ordered Sig/Bee Route PRN Reason Start Time Stop Time Status Last Admin Dose Admin Acetaminophen (Tylenol) 650 mg Q4H PRN ORAL Mild Pain (Pain Scale 1-3) 10/03/18 22:30 11/02/18 22:29 Acetaminophen (Tylenol) 650 mg Q4H PRN ORAL fever 10/03/18 22:30 11/02/18 22:29 Apixaban (Eliquis) 5 mg Q12HR ORAL 10/06/18 09:00 11/05/18 08:59 Apixaban (Eliquis) 10 mg Q12HR ORAL 10/04/18 09:00 10/05/18 23:00 10/04/18 21:10 Bisacodyl (Dulcolax) 10 mg DAILYPRN PRN RECTAL Constipation 10/03/18 22:30 11/02/18 22:29 Dextrose (Dextrose 50%) 25 ml Q30M PRN IV Hypoglycemia 10/03/18 22:30 11/02/18 22:29 Dextrose (Dextrose 50%) 50 ml Q30M PRN IV Hypoglycemia 10/03/18 22:30 11/02/18 22:29 Docusate Sodium (Colace) 100 mg TID ORAL 10/04/18 13:00 11/02/18 22:29 10/04/18 13:59 Epoetin Jonas (Procrit (for ESRD on dialysis)) 10,000 units WED-WED-WED SUBQ 10/05/18 21:00 11/04/18 20:59 Iron Sucrose 100 mg/Sodium Chloride 60 ml @ 240 mls/hr BEDTIME IV 10/04/18 21:00 10/08/18 21:14 10/05/18 00:33 Ondansetron HCl (Zofran) 4 mg Q6H PRN IVP Nausea & Vomiting 10/03/18 22:30 11/02/18 22:29 Pantoprazole (Protonix) 40 mg DAILY ORAL 10/04/18 09:00 11/03/18 08:59 10/04/18 09:48 Polyethylene Glycol (Miralax) 17 gm DAILYPRN PRN ORAL Constipation 10/03/18 22:30 11/02/18 22:29 Risperidone (RisperDAL) 2 mg BEDTIME ORAL 10/04/18 21:00 11/03/18 20:59 10/04/18 21:11 Valproic Acid (Depakene) 500 mg THREE TIMES A DAY ORAL 10/04/18 09:00 11/03/18 08:59 10/04/18 13:59 Vitamin B Complex/ Vit C/Folic Acid (Nephrovite) 1 tab DAILY ORAL 10/04/18 09:00 11/03/18 08:59 10/04/18 09:48 Assessment/Plan Problem List: (1) Psychiatric disorder Assessment & Plan: schizophrenia psych consult will need additional med recs ICD Codes: F99 - Mental disorder, not otherwise specified SNOMED: 03090262, 155145117 (2) ESRD (end stage renal disease) Assessment & Plan: on HD has been refusing HD for 1 week K 5.1 on admit, now 4.8 refused HD yesterday evening, states he will do it today nephrology consulted ICD Codes: N18.6 - End stage renal disease SNOMED: 21181417 (3) Hyperkalemia Assessment & Plan: K 5.1 on admit, K 4.8 today.. still refused HD yesterday monitor labs HD per nephro ICD Codes: E87.5 - Hyperkalemia SNOMED: 76175937 (4) DVT (deep venous thrombosis) Assessment & Plan: resume home eliquis ICD Codes: I82.409 - Acute embolism and thrombosis of unspecified deep veins of unspecified lower extremity SNOMED: 684756550 Qualifiers: Qualified Codes: I82.509 - Chronic embolism and thrombosis of unspecified deep veins of unspecified lower extremity (5) Schizophrenia Assessment & Plan: psych consulted appreciate recs placed on psych meds monitor currently stable ICD Codes: F20.9 - Schizophrenia, unspecified SNOMED: 24268753 (6) Noncompliance of patient with renal dialysis Assessment & Plan: noncompliant with HD missed hD for one week refused HD yesterday likely due to psych issues/schizophrenia ICD Codes: Z91.15 - Patient's noncompliance with renal dialysis SNOMED: 525675626530481 (7) Anemia in chronic kidney disease, on chronic dialysis Assessment & Plan: hgb 8 stable mcv 99 to 101 continue to monitor no acute bleeding due to esrd on hd nephro following ICD Codes: N18.6 - End stage renal disease; D63.1 - Anemia in chronic kidney disease; Z99.2 - Dependence on renal dialysis SNOMED: 031073657, 201969347, 115877279 Status: stable Assessment/Plan ppx: eliquis diet; renal hd patient to be admitted under inpatient care as patient will require 2-3 nights stay due to complications of noncompliance with HD and schizophrenia. i have spent over 56 minutes regarding patient care and counseling along with over 39 minutes of face to face time. Aleshia Shaffer MD Oct 05, 2018 08:57
[2018-10-05] MEDS: Nephrovite tab (Rena-Vite) ORAL SCH (09:24)
[2018-10-05] MEDS: Eliquis 2.5mg tablet ORAL SCH ×2 (09:25→20:30)
[2018-10-05] MEDS: Valproic Acid 250mg/5ml Liquid ORAL SCH ×3 (09:25→18:13)
[2018-10-05] MEDS: Docusate 100mg cap ORAL SCH ×3 (09:26→18:12)
--- NOTE | 2018-10-05 10:47 | Nephrology Progress Note ---
Assessment/Plan Problem List: (1) Anemia in chronic kidney disease, on chronic dialysis (2) ESRD (end stage renal disease) (3) Psychiatric disorder Assessment - ESRD (end stage renal disease) - Noncompliance of patient with renal dialysis -Hyperkalemia - Anemia of CKD -DVT (deep venous thrombosis) -Schizophrenia / Psychiatric disorder Plan HD today Per Psych adjust meds B12 per orders Subjective ROS Limited/Unobtainable: No Constitutional: Reports: malaise Objective Objective Last 24 Hour Vital Signs Date Time Temp Pulse Resp B/P (MAP) Pulse Ox O2 Delivery O2 Flow Rate FiO2 10/05/18 08:10 Room Air 10/05/18 08:00 98.1 94 20 134/83 (100) 95 10/05/18 07:58 98 10/05/18 04:00 76 10/05/18 04:00 99.8 88 18 139/69 (92) 95 10/05/18 00:00 83 10/05/18 00:00 98.9 88 18 124/70 (88) 96 10/04/18 21:00 Room Air 10/04/18 20:00 98.9 90 18 115/75 (88) 97 10/04/18 20:00 94 10/04/18 16:12 85 10/04/18 16:00 99.8 79 18 134/81 (98) 97 10/04/18 12:00 99.1 80 18 119/70 (86) 99 10/04/18 11:27 86 Intake and Output 10/04/18 10/05/18 18:59 06:59 Intake Total 360 ml Output Total 1150 ml Balance -790 ml Intake Oral 360 ml Output Urine Total 1150 ml Laboratory Tests 10/05/18 06:09: White Blood Count 9.1, Red Blood Count 2.43L, Hemoglobin 8.0L, Hematocrit 23.5L , Mean Corpuscular Volume 97, Mean Corpuscular Hemoglobin 32.8H, Mean Corpuscular Hemoglobin Concent 33.8, Red Cell Distribution Width 11.4L, Platelet Count 200, Mean Platelet Volume 5.6L, Neutrophils (%) (Auto) 58.5, Lymphocytes (%) (Auto) 29.6, Monocytes (%) (Auto) 8.2, Eosinophils (%) (Auto) 3.2H, Basophils (%) (Auto) 0.5, Sodium Level 143, Potassium Level 5.0, Chloride Level 113H, Carbon Dioxide Level 18L, Anion Gap 12, Blood Urea Nitrogen 84H, Creatinine 6.7H, Estimat Glomerular Filtration Rate 10.2, Glucose Level 71L, Hemoglobin A1c 4.4, Uric Acid 8.3H, Calcium Level 8.9, Phosphorus Level 3.6, Magnesium Level 1.6L, Total Bilirubin 0.3, Gamma Glutamyl Transpeptidase 24, Aspartate Amino Transf (AST/SGOT) 13L, Alanine Aminotransferase (ALT/SGPT) 14, Alkaline Phosphatase 56, Pro-B-Type Natriuretic Peptide 6689H, Total Protein 7.9 , Albumin 2.6L, Globulin 5.3, Albumin/Globulin Ratio 0.5L, Triglycerides Level 68, Cholesterol Level 120, LDL Cholesterol 74, HDL Cholesterol 45, Cholesterol/ HDL Ratio 2.7L, Thyroid Stimulating Hormone (TSH) 0.485, Valproic Acid (Depakene ) Level 20L Height (Feet): 5 Height (Inches): 11.00 Weight (Pounds): 191 General Appearance: no apparent distress Cardiovascular: normal rate Respiratory/Chest: lungs clear Abdomen: soft Elbert Deng MD Oct 05, 2018 10:47
[2018-10-05 12:00] VITALS: BP 132/75
[2018-10-05] MEDS ORDERED: Vitamin B12 1000mcg/ml Inj IM SCH (12:00)
[2018-10-05] MEDS ORDERED: Vitamin B12 1000mcg/ml Inj SUBQ SCH (13:00)
--- NOTE | 2018-10-05 14:01 | General Progress Note ---
Assessment/Plan Problem List: (1) Schizophrenia ICD Codes: F20.9 - Schizophrenia, unspecified SNOMED: 71204843 Status: unchanged Assessment/Plan haldol dec risperdal depakote valporic acid level Subjective Neurologic/Psychiatric: Reports: anxiety, depressed, emotional problems Allergies: Coded Allergies: FLUPHENAZINE (Verified Allergy, Unknown, 10/03/18) HALOPERIDOL (Verified Allergy, Unknown, 10/03/18) Objective Last 24 Hour Vital Signs Date Time Temp Pulse Resp B/P (MAP) Pulse Ox O2 Delivery O2 Flow Rate FiO2 10/05/18 12:00 97.8 95 21 132/75 (94) 95 10/05/18 08:10 Room Air 10/05/18 08:00 98.1 94 20 134/83 (100) 95 10/05/18 07:58 98 10/05/18 04:00 76 10/05/18 04:00 99.8 88 18 139/69 (92) 95 10/05/18 00:00 83 10/05/18 00:00 98.9 88 18 124/70 (88) 96 10/04/18 21:00 Room Air 10/04/18 20:00 98.9 90 18 115/75 (88) 97 10/04/18 20:00 94 10/04/18 16:12 85 10/04/18 16:00 99.8 79 18 134/81 (98) 97 Intake and Output 10/04/18 10/05/18 19:00 07:00 Intake Total 360 ml Output Total 1150 ml Balance -790 ml Intake Oral 360 ml Output Urine Total 1150 ml Laboratory Tests 10/05/18 06:09: White Blood Count 9.1, Red Blood Count 2.43L, Hemoglobin 8.0L, Hematocrit 23.5L , Mean Corpuscular Volume 97, Mean Corpuscular Hemoglobin 32.8H, Mean Corpuscular Hemoglobin Concent 33.8, Red Cell Distribution Width 11.4L, Platelet Count 200, Mean Platelet Volume 5.6L, Neutrophils (%) (Auto) 58.5, Lymphocytes (%) (Auto) 29.6, Monocytes (%) (Auto) 8.2, Eosinophils (%) (Auto) 3.2H, Basophils (%) (Auto) 0.5, Sodium Level 143, Potassium Level 5.0, Chloride Level 113H, Carbon Dioxide Level 18L, Anion Gap 12, Blood Urea Nitrogen 84H, Creatinine 6.7H, Estimat Glomerular Filtration Rate 10.2, Glucose Level 71L, Hemoglobin A1c 4.4, Uric Acid 8.3H, Calcium Level 8.9, Phosphorus Level 3.6, Magnesium Level 1.6L, Total Bilirubin 0.3, Gamma Glutamyl Transpeptidase 24, Aspartate Amino Transf (AST/SGOT) 13L, Alanine Aminotransferase (ALT/SGPT) 14, Alkaline Phosphatase 56, Pro-B-Type Natriuretic Peptide 6689H, Total Protein 7.9 , Albumin 2.6L, Globulin 5.3, Albumin/Globulin Ratio 0.5L, Triglycerides Level 68, Cholesterol Level 120, LDL Cholesterol 74, HDL Cholesterol 45, Cholesterol/ HDL Ratio 2.7L, Thyroid Stimulating Hormone (TSH) 0.485, Valproic Acid (Depakene ) Level 20L Height (Feet): 5 Height (Inches): 11.00 Weight (Pounds): 191 General Appearance: alert, confused, agitated Panda Zambrano MD Oct 05, 2018 14:01
--- NOTE | 2018-10-05 14:52 | General Progress Note ---
Assessment/Plan Status: stable Assessment/Plan # Anemia of chronic disease due to underlying chronic medical issues, multifactorial --> Anemia w/u has been reviewed. Ferritin at 741 --> No evidence of hemolysis is noted, peripheral smear has been reviewed. --> Hgb goal >7. Transfuse prn. --> Pt on IV iron x5 days --> Cont po folic acid daily --> Cont Procrit 3x a week per nephro # DVT. Pt is on eliquis. --> has not worsened --> continue on eliquis # ESRD. On HD --> Nephrology is following. Appreciate recs. --> Pt is noncompliant with HD # Psych disorder. Psych to follow. # Hyperkalemia. K 5.1 at admission # Noncompliance GREATLY APPRECIATE CONSULTATION. Subjective Date patient seen: Oct 05, 2018 Hematologic/Lymphatic: Reports: anemia Allergies: Coded Allergies: FLUPHENAZINE (Verified Allergy, Unknown, 10/03/18) HALOPERIDOL (Verified Allergy, Unknown, 10/03/18) All Systems: reviewed and negative except above Subjective Pt awake and alert. No acute events. H/H stable. Objective Last 24 Hour Vital Signs Date Time Temp Pulse Resp B/P (MAP) Pulse Ox O2 Delivery O2 Flow Rate FiO2 10/05/18 12:00 97.8 95 21 132/75 (94) 95 10/05/18 08:10 Room Air 10/05/18 08:00 98.1 94 20 134/83 (100) 95 10/05/18 07:58 98 10/05/18 04:00 76 10/05/18 04:00 99.8 88 18 139/69 (92) 95 10/05/18 00:00 83 10/05/18 00:00 98.9 88 18 124/70 (88) 96 10/04/18 21:00 Room Air 10/04/18 20:00 98.9 90 18 115/75 (88) 97 10/04/18 20:00 94 10/04/18 16:12 85 10/04/18 16:00 99.8 79 18 134/81 (98) 97 Intake and Output 10/04/18 10/05/18 19:00 07:00 Intake Total 360 ml Output Total 1150 ml Balance -790 ml Intake Oral 360 ml Output Urine Total 1150 ml Laboratory Tests 10/05/18 06:09: White Blood Count 9.1, Red Blood Count 2.43L, Hemoglobin 8.0L, Hematocrit 23.5L , Mean Corpuscular Volume 97, Mean Corpuscular Hemoglobin 32.8H, Mean Corpuscular Hemoglobin Concent 33.8, Red Cell Distribution Width 11.4L, Platelet Count 200, Mean Platelet Volume 5.6L, Neutrophils (%) (Auto) 58.5, Lymphocytes (%) (Auto) 29.6, Monocytes (%) (Auto) 8.2, Eosinophils (%) (Auto) 3.2H, Basophils (%) (Auto) 0.5, Sodium Level 143, Potassium Level 5.0, Chloride Level 113H, Carbon Dioxide Level 18L, Anion Gap 12, Blood Urea Nitrogen 84H, Creatinine 6.7H, Estimat Glomerular Filtration Rate 10.2, Glucose Level 71L, Hemoglobin A1c 4.4, Uric Acid 8.3H, Calcium Level 8.9, Phosphorus Level 3.6, Magnesium Level 1.6L, Total Bilirubin 0.3, Gamma Glutamyl Transpeptidase 24, Aspartate Amino Transf (AST/SGOT) 13L, Alanine Aminotransferase (ALT/SGPT) 14, Alkaline Phosphatase 56, Pro-B-Type Natriuretic Peptide 6689H, Total Protein 7.9 , Albumin 2.6L, Globulin 5.3, Albumin/Globulin Ratio 0.5L, Triglycerides Level 68, Cholesterol Level 120, LDL Cholesterol 74, HDL Cholesterol 45, Cholesterol/ HDL Ratio 2.7L, Thyroid Stimulating Hormone (TSH) 0.485, Valproic Acid (Depakene ) Level 20L Height (Feet): 5 Height (Inches): 11.00 Weight (Pounds): 191 Objective General Appearance: no apparent distress, alert Lines, tubes and drains: peripheral HEENT: normocephalic, atraumatic, anicteric, mucous membranes moist, PERRL Neck: non-tender, normal alignment, supple, normal inspection Respiratory/Chest: chest wall non-tender, lungs clear, normal breath sounds, no respiratory distress, no accessory muscle use Cardiovascular/Chest: normal peripheral pulses, normal rate, regular rhythm Abdomen: normal bowel sounds, non tender, soft, no organomegaly, no mass Extremities: normal range of motion, non-tender, normal inspection, no calf tenderness, normal capillary refill 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
[2018-10-05 16:00] VITALS: BP 117/71
--- NOTE | 2018-10-05 17:56 | Cardiology Report ---
APPROVED REPORT EKG Measurement Heart [id number] Normal sinus rhythm Nonspecific T wave abnormality Abnormal ECG
[2018-10-05 20:00] VITALS: BP 139/79
[2018-10-05] MEDS ORDERED: Iron Sucrose 100 MG in NS 55 ML IV SCH (21:00)
[2018-10-05] MEDS ORDERED: Epogen (for ESRD on dialysis) SUBQ SCH (21:00)
[2018-10-06] VITALS: BP 124/84
[2018-10-06 04:00] VITALS: BP 132/85
--- NOTE | 2018-10-06 06:46 | General Progress Note ---
Assessment/Plan Status: stable Assessment/Plan # Anemia of chronic disease due to underlying chronic medical issues, multifactorial --> Anemia w/u has been reviewed. Ferritin at 741 --> No evidence of hemolysis is noted, peripheral smear has been reviewed. --> Hgb goal >7. Transfuse prn. --> Pt on IV iron x5 days through 10/08 --> Cont po folic acid daily --> Cont Procrit 3x a week per nephro # DVT. Pt is on eliquis. --> has not worsened --> continue on eliquis # ESRD. On HD --> Nephrology is following. Appreciate recs. --> Pt is noncompliant with HD # Psych disorder. Psych to follow. # Hyperkalemia. K 5.1 at admission --> Currently at 5.0, wnl # Noncompliance GREATLY APPRECIATE CONSULTATION. Subjective Date patient seen: Oct 06, 2018 Hematologic/Lymphatic: Reports: anemia Allergies: Coded Allergies: FLUPHENAZINE (Verified Allergy, Unknown, 10/03/18) HALOPERIDOL (Verified Allergy, Unknown, 10/03/18) All Systems: reviewed and negative except above Subjective Pt awake and alert. No acute events. H/H stable. VS stable. Objective Last 24 Hour Vital Signs Date Time Temp Pulse Resp B/P (MAP) Pulse Ox O2 Delivery O2 Flow Rate FiO2 10/06/18 04:00 96.7 83 19 132/85 (101) 95 10/06/18 04:00 71 10/06/18 00:00 80 10/06/18 00:00 97.5 80 19 124/84 (97) 99 10/05/18 21:00 Room Air 10/05/18 20:00 83 10/05/18 20:00 98.1 90 18 139/79 (99) 100 10/05/18 16:00 97.5 98 20 117/71 (86) 98 10/05/18 15:09 91 10/05/18 12:00 97.8 95 21 132/75 (94) 95 10/05/18 11:58 79 10/05/18 08:10 Room Air 10/05/18 08:00 98.1 94 20 134/83 (100) 95 10/05/18 07:58 98 Intake and Output 10/05/18 10/06/18 19:00 07:00 Intake Total 860 ml Output Total 1850 ml Balance -990 ml Intake Oral 860 ml Output Urine Total 1850 ml Height (Feet): 5 Height (Inches): 11.00 Weight (Pounds): 191 Objective General Appearance: no apparent distress, alert Lines, tubes and drains: peripheral HEENT: normocephalic, atraumatic, anicteric, mucous membranes moist, PERRL Neck: non-tender, normal alignment, supple, normal inspection Respiratory/Chest: chest wall non-tender, lungs clear, normal breath sounds, no respiratory distress, no accessory muscle use Cardiovascular/Chest: normal peripheral pulses, normal rate, regular rhythm Abdomen: normal bowel sounds, non tender, soft, no organomegaly, no mass Extremities: normal range of motion, non-tender, normal inspection, no calf tenderness, normal capillary refill 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
[2018-10-06 08:00] VITALS: BP 129/77
[2018-10-06 08:43] LABS: BASOPHILS % (AUTO) 0.6 % (0.0-2.0); EOSINOPHILS % (AUTO) 3.7 % (0.0-3.0); HEMATOCRIT 28.3 % (42.0-52.0); HEMOGLOBIN 9.4 G/DL (14.2-18.0); LYMPHOCYTES % (AUTO) 26.3 % (20.0-45.0); MEAN CORPUSCULAR VOLUME 98 FL (80-99); MONOCYTES % (AUTO) 6.6 % (1.0-10.0); NEUTROPHILS % (AUTO) 62.9 % (45.0-75.0); PLATELET COUNT 213 K/UL (150-450); RED CELL DISTRIBUTION WIDTH 11.7 % (11.6-14.8); WHITE BLOOD COUNT 8.4 K/UL (4.8-10.8)
[2018-10-06] MEDS ORDERED: Eliquis 2.5mg tablet ORAL SCH (09:00)
[2018-10-06 09:05] LABS: ALANINE AMINOTRANSFERASE 14 U/L (12-78); ALBUMIN 2.9 G/DL (3.4-5.0); ALBUMIN/GLOBULIN RATIO 0.5 (1.0-2.7); ALKALINE PHOSPHATASE 63 U/L (46-116); ANION GAP 10 mmol/L (5-15); ASPARTATE AMINO TRANSFERASE 14 U/L (15-37); BILIRUBIN,TOTAL 0.3 MG/DL (0.2-1.0); BLOOD UREA NITROGEN 66 mg/dL (7-18); CALCIUM 9.3 MG/DL (8.5-10.1); CARBON DIOXIDE 22 MMOL/L (21-32); CHLORIDE 109 MMOL/L (98-107); CREATININE 5.5 MG/DL (0.55-1.30); POTASSIUM 4.2 MMOL/L (3.5-5.1); SODIUM 141 MMOL/L (136-145)
[2018-10-06] MEDS: Valproic Acid 250mg/5ml Liquid ORAL SCH (09:20)
[2018-10-06] MEDS: Nephrovite tab (Rena-Vite) ORAL SCH (09:20)
[2018-10-06] MEDS: Docusate 100mg cap ORAL SCH (09:21)
[2018-10-06] MEDS ORDERED: Tubing IV Secondary IV ONE (11:59)
[2018-10-06] MEDS ORDERED: NS 275ml ONE (11:59)
--- NOTE | 2018-10-06 12:59 | Nephrology Progress Note ---
Assessment/Plan Problem List: (1) Anemia in chronic kidney disease, on chronic dialysis (2) ESRD (end stage renal disease) (3) Psychiatric disorder Assessment - ESRD (end stage renal disease) - Noncompliance of patient with renal dialysis -Hyperkalemia - Anemia of CKD -DVT (deep venous thrombosis) -Schizophrenia / Psychiatric disorder Plan HD 10/05 done Per Psych adjust meds B12 per orders ? DC Subjective ROS Limited/Unobtainable: No Interval Events/Complaints scotty at 8.30 am Objective Objective Last 24 Hour Vital Signs Date Time Temp Pulse Resp B/P (MAP) Pulse Ox O2 Delivery O2 Flow Rate FiO2 10/06/18 08:20 Room Air 10/06/18 08:00 98.4 78 20 129/77 (94) 100 10/06/18 07:49 88 10/06/18 04:00 96.7 83 19 132/85 (101) 95 10/06/18 04:00 71 10/06/18 00:00 80 10/06/18 00:00 97.5 80 19 124/84 (97) 99 10/05/18 21:00 Room Air 10/05/18 20:00 83 10/05/18 20:00 98.1 90 18 139/79 (99) 100 10/05/18 16:00 97.5 98 20 117/71 (86) 98 10/05/18 15:09 91 Intake and Output 10/05/18 10/06/18 18:59 06:59 Intake Total 860 ml Output Total 1850 ml Balance -990 ml Intake Oral 860 ml Output Urine Total 1850 ml Laboratory Tests 10/06/18 08:27: White Blood Count 8.4, Red Blood Count 2.90L, Hemoglobin 9.4L, Hematocrit 28.3L , Mean Corpuscular Volume 98, Mean Corpuscular Hemoglobin 32.5H, Mean Corpuscular Hemoglobin Concent 33.3, Red Cell Distribution Width 11.7, Platelet Count 213, Mean Platelet Volume 6.0L, Neutrophils (%) (Auto) 62.9, Lymphocytes ( %) (Auto) 26.3, Monocytes (%) (Auto) 6.6, Eosinophils (%) (Auto) 3.7H, Basophils (%) (Auto) 0.6, Sodium Level 141, Potassium Level 4.2, Chloride Level 109H, Carbon Dioxide Level 22, Anion Gap 10, Blood Urea Nitrogen 66H, Creatinine 5.5H, Estimat Glomerular Filtration Rate 12.8, Glucose Level 121H, Calcium Level 9.3, Total Bilirubin 0.3, Aspartate Amino Transf (AST/SGOT) 14L, Alanine Aminotransferase (ALT/SGPT) 14, Alkaline Phosphatase 63, Total Protein 9.1H, Albumin 2.9L, Globulin 6.2, Albumin/Globulin Ratio 0.5L Height (Feet): 5 Height (Inches): 11.00 Weight (Pounds): 180 General Appearance: no apparent distress Objective PE not changed Elbert Deng MD Oct 06, 2018 12:59
--- NOTE | 2018-10-06 14:22 | Discharge Summary ---
Discharge Summary Hospital Course Date of Admission Oct 03, 2018 at 19:40 Date of Discharge Oct 06, 2018 at 12:00 Admitting Diagnosis END STAGE RENAL DISEASE EDWIN Forrester is a 63 year old male who was admitted on Oct 03, 2018 at 19:40 for End Stage Renal Disease h/o dvt, esrd on hd, schizophrenia presented from [facility], missed HD for 1 week because he was noncompliant and refused HD. Patient apparently has an extensive psychiatric history and has been seen by psychiatrist in the past. Patient is stable, denies any complaints, denies chest pain or sob. Patient is nonverbal at baseline however when talking to patient he speaks uncomprehendingly.No other aggravating relieving factors. No other associated symptoms. Patient's Potassium was 5.1 on admit, nephrology was consulted by ED. Patient was admitted as observation status in anticipation that patient would receive HD and would be discharge back to [facility] however patient had refused HD overnight. psych has also evaluated the patient and started him on psych medications. patient seems a bit more calm today Patient underwent HD overnight and K now 4.2. discussed with patient the importance of compliance for over 15 mins, patient says he will continue with HD after discharge. 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, no motor/sensory deficits, alert, responsive, normal mood/affect Hospital Course (1) Psychiatric disorder Assessment & Plan: schizophrenia cont psych meds ICD Codes: F99 - Mental disorder, not otherwise specified SNOMED: 12186539, 339108202 (2) ESRD (end stage renal disease) Assessment & Plan: on HD has been refusing HD for 1 week s/p HD overnight resolved K now 4.2 nephrology consulted ICD Codes: N18.6 - End stage renal disease SNOMED: 94212502 (3) Hyperkalemia Assessment & Plan: resolved with HD k 4.2 now HD per nephro ICD Codes: E87.5 - Hyperkalemia SNOMED: 15961603 (4) DVT (deep venous thrombosis) Assessment & Plan: resume home eliquis ICD Codes: I82.409 - Acute embolism and thrombosis of unspecified deep veins of unspecified lower extremity SNOMED: 844168271 Qualifiers: Qualified Codes: I82.509 - Chronic embolism and thrombosis of unspecified deep veins of unspecified lower extremity (5) Schizophrenia Assessment & Plan: psych consulted appreciate recs placed on psych meds monitor currently stable ICD Codes: F20.9 - Schizophrenia, unspecified SNOMED: 69329810 (6) Noncompliance of patient with renal dialysis Assessment & Plan: noncompliant with HD missed hD for one week refused HD yesterday likely due to psych issues/schizophrenia ICD Codes: Z91.15 - Patient's noncompliance with renal dialysis SNOMED: 743572491272875 (7) Anemia in chronic kidney disease, on chronic dialysis Assessment & Plan: hgb 8 stable mcv 99 to 101 continue to monitor no acute bleeding due to esrd on hd nephro following ICD Codes: N18.6 - End stage renal disease; D63.1 - Anemia in chronic kidney disease; Z99.2 - Dependence on renal dialysis SNOMED: 829964805, 276524832, 003757849 Status: stable i have spent over 41 minutes regarding patient care and counseling and discharge planning along with over 22 minutes of face to face time. Discharge Medications Continued Medications: Apixaban (Eliquis) 2.5 Mg Tablet 2.5 MG PO BID, TAB (This prescription has been renewed) Bisacodyl (Dulcolax) 10 Mg Supp.rect 10 MG RC, SUPP (This prescription has been renewed) Cholecalciferol (Vitamin D3) (Decara) 50,000 Unit Capsule 42680 UNIT PO ONCE A WEEK, CAP (This prescription has been renewed) Ferrous Sulfate (Iron) 325 Mg Tablet 325 MG PO DAILY, TAB (This prescription has been renewed) Ondansetron* (Zofran*) 4 Mg Tablet 4 MG ORAL Q6H PRN for Nausea & Vomiting, TAB (This prescription has been renewed ) Pantoprazole* (Protonix*) 40 Mg Tablet.dr 40 MG ORAL DAILY, TAB (This prescription has been renewed) Sennosides (Magui-Rashida) 8.6 Mg Tablet 8.6 MG PO DAILY, TAB (This prescription has been renewed) Valproate Sodium (Valproic Acid) 250 Mg/5 Ml Solution 500 MG PO TID (This prescription has been renewed) Vitamin B Cmplx/Vit C/Folic AC (Nephro-Kyree Tablet) 0.8 Mg Tablet 1 TAB ORAL DAILY, #30 TAB 0 Refills (This prescription has been renewed) Discharge Condition Upon Discharge: stable Discharge Disposition Patient was discharged to SNF/Subacute Facility(03) Discharge Diagnoses: (1) Hyperkalemia (2) ESRD (end stage renal disease) (3) Schizophrenia (4) DVT (deep venous thrombosis) (5) Noncompliance of patient with renal dialysis (6) Anemia in chronic kidney disease, on chronic dialysis Aleshia Shaffer MD Oct 06, 2018 14:22
--- NOTE | 2018-10-06 22:52 | General Progress Note ---
Assessment/Plan Problem List: (1) Schizophrenia ICD Codes: F20.9 - Schizophrenia, unspecified SNOMED: 34313648 Status: stable, progressing Assessment/Plan haldol dec risperdal depakote valporic acid level Subjective Neurologic/Psychiatric: Reports: anxiety, depressed, emotional problems Allergies: Coded Allergies: FLUPHENAZINE (Verified Allergy, Unknown, 10/03/18) HALOPERIDOL (Verified Allergy, Unknown, 10/03/18) Subjective the pt is delusional ad hallucinating Objective Last 24 Hour Vital Signs Date Time Temp Pulse Resp B/P (MAP) Pulse Ox O2 Delivery O2 Flow Rate FiO2 10/06/18 08:20 Room Air 10/06/18 08:00 98.4 78 20 129/77 (94) 100 10/06/18 07:49 88 10/06/18 04:00 96.7 83 19 132/85 (101) 95 10/06/18 04:00 71 10/06/18 00:00 80 10/06/18 00:00 97.5 80 19 124/84 (97) 99 Intake and Output 10/05/18 10/06/18 19:00 07:00 Intake Total 860 ml Output Total 1850 ml Balance -990 ml Intake Oral 860 ml Output Urine Total 1850 ml Laboratory Tests 10/06/18 08:27: White Blood Count 8.4, Red Blood Count 2.90L, Hemoglobin 9.4L, Hematocrit 28.3L , Mean Corpuscular Volume 98, Mean Corpuscular Hemoglobin 32.5H, Mean Corpuscular Hemoglobin Concent 33.3, Red Cell Distribution Width 11.7, Platelet Count 213, Mean Platelet Volume 6.0L, Neutrophils (%) (Auto) 62.9, Lymphocytes ( %) (Auto) 26.3, Monocytes (%) (Auto) 6.6, Eosinophils (%) (Auto) 3.7H, Basophils (%) (Auto) 0.6, Sodium Level 141, Potassium Level 4.2, Chloride Level 109H, Carbon Dioxide Level 22, Anion Gap 10, Blood Urea Nitrogen 66H, Creatinine 5.5H, Estimat Glomerular Filtration Rate 12.8, Glucose Level 121H, Calcium Level 9.3, Total Bilirubin 0.3, Aspartate Amino Transf (AST/SGOT) 14L, Alanine Aminotransferase (ALT/SGPT) 14, Alkaline Phosphatase 63, Total Protein 9.1H, Albumin 2.9L, Globulin 6.2, Albumin/Globulin Ratio 0.5L Height (Feet): 5 Height (Inches): 11.00 Weight (Pounds): 180 General Appearance: alert, confused, moderate distress, agitated Neurologic: alert, responsive, depressed affect Panda Zambrano MD Oct 06, 2018 22:52
== END 2018-10-06 12:00 | DRG 470 ==
LOC: EDBD 18:27 → EMR 19:24 → 2E 19:40 → INTOOBSV 19:40 → EDBEDREQ 19:48 → OBSVTOIN 10-05 08:57
PROC: 5A1D70Z Performance of Urinary Filtration, Intermittent, Less than 6 Hours Per Day (ICD-10-PCS; principal; 2018-10-06)
DX: N18.6 End stage renal disease (principal); E87.5 Hyperkalemia; F20.9 Schizophrenia, unspecified; Z91.15 Patient's noncompliance with renal dialysis; Z99.2 Dependence on renal dialysis; D63.1 Anemia in chronic kidney disease; Z88.8 Allergy status to other drugs, medicaments and biological substances; Z79.01 Long term (current) use of anticoagulants
CPT/HCPCS: 36415; 71045; 80048; 80053; 80061; 80164; 82550; 82553; 82607; 82728; 82746; 82977; 83036; 83540; 83550; 83735; 83880; 84100; 84443; 84484; 84550; 85007; 85025; 86140; 87081; 93005; 99285

== ENCOUNTER 2018-10-26 19:30 | Inpatient (IN) | payer OTHER ==
[~2018-10-26] VITALS: Ht 170.2 cm; Wt 87.1 kg
--- NOTE | 2018-10-26 19:27 | Emergency Room Report ---
History of Present Illness General Source: Patient Present Illness HPI Patient is a 63-year-old male brought in by balance for increased confusion. The patient had prior history of end-stage renal disease and had missed his last 2 weeks of dialysis. Patient had prior history of psychosis. Patient had recently been on a psychiatric hold. Patient was noted to have increased agitation and altered mental status. Allergies: Coded Allergies: FLUPHENAZINE (Verified Allergy, Unknown, 10/03/18) HALOPERIDOL (Verified Allergy, Unknown, 10/03/18) Patient History Past Medical History: see triage record Past Surgical History: unable to obtain Reviewed Nursing Documentation: PMH: Agreed; PSxH: Agreed Review of Systems All Other Systems: limited - by poor historian Physical Exam Sp02 EP Interpretation: reviewed, normal General Appearance: normal inspection, obese, Chronically Ill Head: atraumatic ENT: normal ENT inspection, hearing grossly normal, normal voice Neck: normal inspection, full range of motion, supple, no bony tend Respiratory: normal inspection, lungs clear, normal breath sounds, no respiratory distress, no retraction, no wheezing Cardiovascular #1: regular rate, rhythm, no edema Gastrointestinal: normal inspection, normal bowel sounds, non tender, soft, no guarding, no hernia Genitourinary: no CVA tenderness Musculoskeletal: normal inspection, back normal, normal range of motion Neurologic: normal inspection, alert, responsive Psychiatric: other - agitated, confused, moves extremities, delusions Skin: normal inspection, normal color, no rash Medical Decision Making Diagnostic Impression: Primary Impression: Noncompliance of patient with renal dialysis Additional Impressions: Hyperkalemia Schizophrenia ER Course Patient presented for altered mental status after missed dialysis. Differential diagnosis includes but is not limited to uremia, hyperkalemia, psychosis, among others. Because of complexity of patient's case laboratory testing and imaging studies were ordered. EKG interpreted by me showed normal sinus rhythm with a rate of [address] changes. QRS appears to be normal duration. Patient appears to be markedly confused. Patient is a very poor historian. Patient appears to be unable to refuse for dialysis. Dr. Shaffer was contacted for [facility] for inpatient observation due to covering physician. Labs Test 10/26/18 19:55 10/26/18 21:09 White Blood Count 7.7 K/UL (4.8-10.8) Red Blood Count 2.72 M/UL (4.70-6.10) Hemoglobin 8.8 G/DL (14.2-18.0) Hematocrit 27.3 % (42.0-52.0) Mean Corpuscular Volume 101 FL (80-99) Mean Corpuscular Hemoglobin 32.3 PG (27.0-31.0) Mean Corpuscular Hemoglobin Concent 32.2 G/DL (32.0-36.0) Red Cell Distribution Width 12.1 % (11.6-14.8) Platelet Count 253 K/UL (150-450) Mean Platelet Volume 5.7 FL (6.5-10.1) Neutrophils (%) (Auto) 61.5 % (45.0-75.0) Lymphocytes (%) (Auto) 23.6 % (20.0-45.0) Monocytes (%) (Auto) 11.1 % (1.0-10.0) Eosinophils (%) (Auto) 3.1 % (0.0-3.0) Basophils (%) (Auto) 0.8 % (0.0-2.0) Sodium Level 143 MMOL/L (136-145) Potassium Level 4.8 MMOL/L (3.5-5.1) Chloride Level 110 MMOL/L (98-107) Carbon Dioxide Level 21 MMOL/L (21-32) Anion Gap 12 mmol/L (5-15) Blood Urea Nitrogen 72 mg/dL (7-18) Creatinine 6.4 MG/DL (0.55-1.30) Estimat Glomerular Filtration Rate 10.8 mL/min (>60) Glucose Level 86 MG/DL (74-106) Calcium Level 9.1 MG/DL (8.5-10.1) Total Bilirubin 0.3 MG/DL (0.2-1.0) Aspartate Amino Transf (AST/SGOT) 13 U/L (15-37) Alanine Aminotransferase (ALT/SGPT) 17 U/L (12-78) Alkaline Phosphatase 68 U/L (46-116) Troponin I 0.015 ng/mL (0.000-0.056) Total Protein 8.7 G/DL (6.4-8.2) Albumin 3.1 G/DL (3.4-5.0) Globulin 5.6 g/dL Albumin/Globulin Ratio 0.6 (1.0-2.7) Thyroid Stimulating Hormone (TSH) 0.848 uiU/mL (0.358-3.740) Urine Color Pale yellow Urine Appearance Clear Urine pH 6.5 (4.5-8.0) Urine Specific [place] 1.005 (1.005-1.035) Urine Protein 1+ (NEGATIVE) Urine Glucose (UA) Negative (NEGATIVE) Urine Ketones Negative (NEGATIVE) Urine Blood 1+ (NEGATIVE) Urine Nitrite Negative (NEGATIVE) Urine Bilirubin Negative (NEGATIVE) Urine Urobilinogen Normal MG/DL (0.0-1.0) Urine Leukocyte Esterase Negative (NEGATIVE) Urine RBC 0-2 /HPF (0 - 0) Urine WBC 0-2 /HPF (0 - 0) Urine Squamous Epithelial Cells Occasional /LPF Urine Bacteria Occasional /HPF (NONE) EKG Diagnostic Results Rate: normal - 88 Rhythm: NSR ST Segments: no acute changes Rhythm Strip Diag. Results EP Interpretation: yes Rhythm: NSR, no PVC's, no ectopy Status: unchanged Disposition: PLACE IN OBSERVATION Condition: Serious Mckay Forrester MD Oct 26, 2018 19:27
[~2018-10-26 19:30] MED LIST: DECARA50000 UNIT PO; DULCOLAX10 MG RC; ELIQUIS2.5 MG PO; GERI-KOT8.6 MG PO; IRON325 M1 PO; NEPHROVITE1 TAB ORAL; PROTONIX40 MG ORAL; VALPROIC A250 MG/5 M PO; ZOFRAN4 M3 ORAL
[2018-10-26 19:35] VITALS: BP 136/74
[2018-10-26] MEDS ORDERED: NEPHROVITE1 TAB ORAL (19:38)
[2018-10-26] MEDS ORDERED: ZOFRAN4 M3 ORAL (19:38)
[2018-10-26] MEDS ORDERED: CALCIUM ACETAT667 M1 PO (19:38)
[2018-10-26] MEDS ORDERED: BISACODYL5 MG ORAL (19:38)
[2018-10-26] MEDS ORDERED: DOCUSATE SODIU100 MG ORAL (19:38)
[2018-10-26] MEDS ORDERED: FERROUS SULFAT325 MG ORAL (19:38)
[2018-10-26] MEDS ORDERED: PROTONIX40 MG ORAL (19:38)
[2018-10-26 20:22] LABS: BASOPHILS % (AUTO) 0.8 % (0.0-2.0); EOSINOPHILS % (AUTO) 3.1 % (0.0-3.0); HEMATOCRIT 27.3 % (42.0-52.0); HEMOGLOBIN 8.8 G/DL (14.2-18.0); LYMPHOCYTES % (AUTO) 23.6 % (20.0-45.0); MEAN CORPUSCULAR VOLUME 101 FL (80-99); MONOCYTES % (AUTO) 11.1 % (1.0-10.0); NEUTROPHILS % (AUTO) 61.5 % (45.0-75.0); PLATELET COUNT 253 K/UL (150-450); RED BLOOD COUNT 2.72 M/UL (4.70-6.10); RED CELL DISTRIBUTION WIDTH 12.1 % (11.6-14.8); WHITE BLOOD COUNT 7.7 K/UL (4.8-10.8)
[2018-10-26 20:37] LABS: ANION GAP 12 mmol/L (5-15); BLOOD UREA NITROGEN 72 mg/dL (7-18); CALCIUM 9.1 MG/DL (8.5-10.1); CARBON DIOXIDE 21 MMOL/L (21-32); CHLORIDE 110 MMOL/L (98-107); CREATININE 6.4 MG/DL (0.55-1.30); POTASSIUM 4.8 MMOL/L (3.5-5.1); SODIUM 143 MMOL/L (136-145)
[2018-10-26 20:46] LABS: ALANINE AMINOTRANSFERASE 17 U/L (12-78); ALBUMIN 3.1 G/DL (3.4-5.0); ALBUMIN/GLOBULIN RATIO 0.6 (1.0-2.7); ALKALINE PHOSPHATASE 68 U/L (46-116); ASPARTATE AMINO TRANSFERASE 13 U/L (15-37); BILIRUBIN,TOTAL 0.3 MG/DL (0.2-1.0)
[2018-10-26 21:33] LABS: APPEARANCE,URINE CLEAR; BILIRUBIN, URINE NEGATIVE (NEGATIVE); COLOR,URINE PALE YELLOW; GLUCOSE, URINE (UA) NEGATIVE (NEGATIVE); KETONES,URINE NEGATIVE (NEGATIVE); LEUKOCYTE ESTERASE ,URINE NEGATIVE (NEGATIVE); NITRITE,URINE NEGATIVE (NEGATIVE); PH,URINE 6.5 (4.5-8.0); PROTEIN,URINE 1+ (NEGATIVE); UROBILINOGEN,URINE NORMAL MG/DL (0.0-1.0)
--- NOTE | 2018-10-26 21:44 | History and Physical ---
History of Present Illness General Date patient seen: Oct 26, 2018 Time patient seen: 21:27 Reason for Hospitalization: missed HD Present Illness HPI 63 yo male with h/o dvt, esrd on hd, schizophrenia presented from [facility], missed his last 3 HD sessions. Patient is stable, denies any complaints , denies chest pain or sob. Patient labs are stable. nephrology was called by ED. patient has a long hx of noncompliance with HD denies any BOLIVAR, N/V, Chills/Fevers. Denies dizziness. Patient otherwise is agreeable to HD after long discussion today. social hx: reviewed, denies smoking, alcohol use or drug use fam hx: reviewed, denies any sig past fam hx to me code status reviewed, would like to remain full code. Allergies: Coded Allergies: FLUPHENAZINE (Verified Allergy, Unknown, 10/03/18) HALOPERIDOL (Verified Allergy, Unknown, 10/03/18) Medication History Scheduled Apixaban (Eliquis), 2.5 MG PO BID, (Reported) Bisacodyl* (Dulcolax*), 10 MG ORAL ONCE, (Reported) Cholecalciferol (Vitamin D3) (Decara), 25,000 UNIT PO ONCE A WEEK, (Reported) Docusate Sodium* (Docusate Sodium*), 100 MG ORAL THREE TIMES A DAY, (Reported) Ferrous Sulfate (Iron), 325 MG PO DAILY, (Reported) Ferrous Sulfate* (Ferrous Sulfate*), 325 MG ORAL DAILY, (Reported) Pantoprazole* (Protonix*), 40 MG ORAL DAILY, (Reported) Pantoprazole* (Protonix*), 40 MG ORAL DAILY, (Reported) Sennosides (Magui-Rashida), 8.6 MG PO DAILY, (Reported) Valproate Sodium (Valproic Acid), 500 MG PO TID, (Reported) Vitamin B Cmplx/Vit C/Folic AC (Nephro-Kyree Tablet), 1 TAB ORAL DAILY, (Reported ) Vitamin B Cmplx/Vit C/Folic AC (Nephro-Kyree Tablet), 1 TAB ORAL DAILY, (Reported ) Scheduled PRN Ondansetron* (Zofran*), 4 MG ORAL Q6H PRN for Nausea & Vomiting, (Reported) Ondansetron* (Zofran*), 4 MG ORAL Q6H PRN for Nausea & Vomiting, (Reported) Miscellaneous Medications Bisacodyl (Dulcolax), 10 MG RC, (Reported) Calcium Acetate (Calcium Acetate), 667 MG PO, (Reported) Patient History History Provided By: Patient Healthcare decision maker Resuscitation status Advanced Directive on File No Review of Systems All Other Systems: negative except mentioned in HPI ROS Narrative ROS: 14 point ROS reviewed and negative except per HPI Physical Exam General Appearance: no apparent distress, alert, agitated Lines, tubes and drains: peripheral HEENT: normocephalic, atraumatic, anicteric, mucous membranes moist, PERRL Neck: non-tender, normal alignment, supple, normal inspection Respiratory/Chest: chest wall non-tender, lungs clear, normal breath sounds, no respiratory distress, no accessory muscle use, respiratory distress Cardiovascular/Chest: normal peripheral pulses, normal rate, regular rhythm Abdomen: normal bowel sounds, non tender, soft, no organomegaly, no mass Extremities: normal range of motion, non-tender, normal inspection, no calf tenderness, normal capillary refill, non-pitting Skin Exam: normal pigmentation, warm/dry, cyanotic 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, no motor/sensory deficits, alert, oriented x 3, responsive, normal mood/affect Last 24 Hour Vital Signs Date Time Temp Pulse Resp B/P (MAP) Pulse Ox O2 Delivery O2 Flow Rate FiO2 10/26/18 19:25 98.1 77 18 135/75 99 Laboratory Tests Test 10/26/18 19:55 White Blood Count 7.7 K/UL (4.8-10.8) Red Blood Count 2.72 M/UL (4.70-6.10) L Hemoglobin 8.8 G/DL (14.2-18.0) L Hematocrit 27.3 % (42.0-52.0) L Mean Corpuscular Volume 101 FL (80-99) H Mean Corpuscular Hemoglobin 32.3 PG (27.0-31.0) H Mean Corpuscular Hemoglobin Concent 32.2 G/DL (32.0-36.0) Red Cell Distribution Width 12.1 % (11.6-14.8) Platelet Count 253 K/UL (150-450) Mean Platelet Volume 5.7 FL (6.5-10.1) L Neutrophils (%) (Auto) 61.5 % (45.0-75.0) Lymphocytes (%) (Auto) 23.6 % (20.0-45.0) Monocytes (%) (Auto) 11.1 % (1.0-10.0) H Eosinophils (%) (Auto) 3.1 % (0.0-3.0) H Basophils (%) (Auto) 0.8 % (0.0-2.0) Sodium Level 143 MMOL/L (136-145) Potassium Level 4.8 MMOL/L (3.5-5.1) Chloride Level 110 MMOL/L (98-107) H Carbon Dioxide Level 21 MMOL/L (21-32) Anion Gap 12 mmol/L (5-15) Blood Urea Nitrogen 72 mg/dL (7-18) H Creatinine 6.4 MG/DL (0.55-1.30) H Estimat Glomerular Filtration Rate 10.8 mL/min (>60) Glucose Level 86 MG/DL (74-106) Calcium Level 9.1 MG/DL (8.5-10.1) Total Bilirubin 0.3 MG/DL (0.2-1.0) Aspartate Amino Transf (AST/SGOT) 13 U/L (15-37) L Alanine Aminotransferase (ALT/SGPT) 17 U/L (12-78) Alkaline Phosphatase 68 U/L (46-116) Troponin I 0.015 ng/mL (0.000-0.056) Total Protein 8.7 G/DL (6.4-8.2) H Albumin 3.1 G/DL (3.4-5.0) L Globulin 5.6 g/dL Albumin/Globulin Ratio 0.6 (1.0-2.7) L Thyroid Stimulating Hormone (TSH) 0.848 uiU/mL (0.358-3.740) Height (Feet): 5 Height (Inches): 9.00 Weight (Pounds): 210 Assessment/Plan Status: stable Assessment/Plan (1) Psychiatric disorder Assessment & Plan: schizophrenia will resume meds valproic depakote ICD Codes: F99 - Mental disorder, not otherwise specified SNOMED: 67254537, 333771590 (2) ESRD (end stage renal disease) Assessment & Plan: has been refusing last 3 HD session K 4.8 now nephrology called by ED plan for HD ICD Codes: N18.6 - End stage renal disease SNOMED: 37011480 (3) Hyperkalemia Assessment & Plan: K 5.1 on admit, K 4.8 today.. still refused HD yesterday monitor labs HD per nephro ICD Codes: E87.5 - Hyperkalemia SNOMED: 42703584 (4) DVT (deep venous thrombosis) Assessment & Plan: resume home eliquis ICD Codes: I82.409 - Acute embolism and thrombosis of unspecified deep veins of unspecified lower extremity SNOMED: 572499734 Qualifiers: Qualified Codes: I82.509 - Chronic embolism and thrombosis of unspecified deep veins of unspecified lower extremity (5) Schizophrenia Assessment & Plan: stable monitor currently stable ICD Codes: F20.9 - Schizophrenia, unspecified SNOMED: 67106825 (6) Noncompliance of patient with renal dialysis Assessment & Plan: noncompliant with HD missed last 3 HD likely due to psych issues/schizophrenia educated on importance of compliance ICD Codes: Z91.15 - Patient's noncompliance with renal dialysis SNOMED: 119890050274325 (7) Anemia in chronic kidney disease, on chronic dialysis Assessment & Plan: stable mcv 99 to 101 continue to monitor no acute bleeding due to esrd on hd nephro following ICD Codes: N18.6 - End stage renal disease; D63.1 - Anemia in chronic kidney disease; Z99.2 - Dependence on renal dialysis SNOMED: 335254107, 126266052, 946255213 Status: stable Assessment/Plan ppx: eliquis diet; renal hd DVT Prophylaxis: SCD, eliquis Code Status: Full Hospital Classification Declaration: Based on this initial evaluation, and depending on the patient's clinical course, I anticipate that this patient will require hospitalization for 1 midnight for HD and close respiratory/hemodynamic monitoring. Disposition: Once the patient is stable to leave the hospital, I anticipate the patient will likely be discharged to the following environment: SNF I spent 70 minutes on this patient's case, and 37 minutes were dedicated to counseling and/or care coordination. Discussed with patient/family, nursing staff, SW/CM regarding clinical status, treatment course, and disposition planning. Time of note may not reflect time of encounter. Date of Discussion: 10/26/18 A [id number] discussion with the patient regarding the patient's advanced care planning took place during this hospitalization on the above date. The discussion included the explanation and discussion of advance directives and associated forms/documents, as well as the patient's current code status. We also discussed at length the patient's medical conditions (both acute and chronic), general prognosis, treatment options, and goals of care. The following summarizes the discussion: Advance Care Planning/Goals of Care: - Will attempt to fill out an AD and/or POLST with the patient prior to discharge, if not already completed - Continue current evaluation and management of any acute and chronic medical issues - Will continue to support the patient/family - Will continue to discuss both short- and long-term goals of care DPOA-HC/Surrogate Decision Maker: None currently appointed Code Status: Full Code AD Forms/Documents Completed: Deferred A total of 32 minutes was spent on this discussion, including counseling, answering questions, and completing, if any, pertinent advanced care planning forms/documents. Aleshia Shaffer MD Oct 26, 2018 21:44
[2018-10-26] MEDS: Valproate Sodium INJ 500 MG in D5W 55 ML IVPB SCH (22:21)
[2018-10-27] VITALS: BP 147/73
[2018-10-27 04:00] VITALS: BP 136/81
[2018-10-27 05:56] LABS: ANION GAP 11 mmol/L (5-15); BLOOD UREA NITROGEN 69 mg/dL (7-18); CALCIUM 8.6 MG/DL (8.5-10.1); CARBON DIOXIDE 17 MMOL/L (21-32); CHLORIDE 112 MMOL/L (98-107); POTASSIUM 4.9 MMOL/L (3.5-5.1); SODIUM 140 MMOL/L (136-145)
[2018-10-27] MEDS: Valproate Sodium INJ 500 MG in D5W 55 ML IVPB SCH ×3 (06:08→21:05)
[2018-10-27 06:09] LABS: HEMATOCRIT 22.9 % (42.0-52.0); HEMOGLOBIN 7.4 G/DL (14.2-18.0); MEAN CORPUSCULAR VOLUME 101 FL (80-99); PLATELET COUNT 218 K/UL (150-450); RED BLOOD COUNT 2.27 M/UL (4.70-6.10); WHITE BLOOD COUNT 6.6 K/UL (4.8-10.8)
[2018-10-27 08:00] VITALS: BP 134/68
[2018-10-27] MEDS: Calcium Acetate 667mg Tab ORAL SCH ×3 (08:30→17:48)
[2018-10-27] MEDS: Eliquis 2.5mg tablet ORAL SCH ×2 (08:30→17:48)
[2018-10-27 12:00] VITALS: BP 128/73
--- NOTE | 2018-10-27 13:05 | History and Physical ---
History of Present Illness General Date patient seen: Oct 27, 2018 Time patient seen: 13:03 Reason for Hospitalization: General Complaint Present Illness HPI 63 yo male with h/o dvt, esrd on hd, schizophrenia presented from [facility], missed his last 3 HD sessions. Patient is stable, denies any complaints , denies chest pain or sob. Patient labs are stable. nephrology was called by ED. patient has a long hx of noncompliance with HD denies any BOLIVAR, N/V, Chills/Fevers. Denies dizziness. Patient otherwise is agreeable to HD after long discussion today. social hx: reviewed, denies smoking, alcohol use or drug use fam hx: reviewed, denies any sig past fam hx to me code status reviewed, would like to remain full code. patient required more than 1 midnight stay thus status changed from obs to inpatient nephrology evaluated, planned for HD psych eval pending no acute events overnight Allergies: Coded Allergies: FLUPHENAZINE (Verified Allergy, Unknown, 10/03/18) HALOPERIDOL (Verified Allergy, Unknown, 10/03/18) Medication History Scheduled Apixaban (Eliquis), 2.5 MG PO BID, (Reported) Bisacodyl* (Dulcolax*), 10 MG ORAL ONCE, (Reported) Cholecalciferol (Vitamin D3) (Decara), 25,000 UNIT PO ONCE A WEEK, (Reported) Docusate Sodium* (Docusate Sodium*), 100 MG ORAL THREE TIMES A DAY, (Reported) Ferrous Sulfate (Iron), 325 MG PO DAILY, (Reported) Ferrous Sulfate* (Ferrous Sulfate*), 325 MG ORAL DAILY, (Reported) Pantoprazole* (Protonix*), 40 MG ORAL DAILY, (Reported) Pantoprazole* (Protonix*), 40 MG ORAL DAILY, (Reported) Sennosides (Magui-Rashida), 8.6 MG PO DAILY, (Reported) Valproate Sodium (Valproic Acid), 500 MG PO TID, (Reported) Vitamin B Cmplx/Vit C/Folic AC (Nephro-Kyree Tablet), 1 TAB ORAL DAILY, (Reported ) Vitamin B Cmplx/Vit C/Folic AC (Nephro-Kyree Tablet), 1 TAB ORAL DAILY, (Reported ) Scheduled PRN Ondansetron* (Zofran*), 4 MG ORAL Q6H PRN for Nausea & Vomiting, (Reported) Ondansetron* (Zofran*), 4 MG ORAL Q6H PRN for Nausea & Vomiting, (Reported) Miscellaneous Medications Bisacodyl (Dulcolax), 10 MG RC, (Reported) Calcium Acetate (Calcium Acetate), 667 MG PO, (Reported) Patient History Healthcare decision maker Resuscitation status Full Code Advanced Directive on File No Review of Systems ROS Narrative 14 point ROS reviewed and negative except per the above HPI Physical Exam Last 24 Hour Vital Signs Date Time Temp Pulse Resp B/P (MAP) Pulse Ox O2 Delivery O2 Flow Rate FiO2 10/27/18 08:00 97.9 84 20 134/68 (90) 94 10/27/18 08:00 97.9 84 22 134/68 (90) 94 10/27/18 08:00 Room Air 10/27/18 07:36 90 10/27/18 04:00 Room Air 10/27/18 04:00 97.6 84 20 136/81 (99) 94 10/27/18 04:00 79 10/27/18 01:13 Room Air 10/27/18 00:36 Room Air 10/27/18 00:00 71 10/27/18 00:00 98.0 78 24 147/73 (97) 100 10/26/18 21:45 98.1 82 18 137/76 99 Room Air 10/26/18 19:35 81 18 Room Air 10/26/18 19:35 98.1 83 18 136/74 99 Room Air 10/26/18 19:25 98.1 77 18 135/75 99 Intake and Output 10/26/18 10/27/18 18:59 06:59 Intake Total 440 ml Output Total 950 ml Balance -510 ml Intake Oral 440 ml Output Urine Total 950 ml # Bowel Movements 1 Laboratory Tests Test 10/26/18 19:55 10/26/18 21:09 10/27/18 03:10 White Blood Count 7.7 K/UL (4.8-10.8) 6.6 K/UL (4.8-10.8) Red Blood Count 2.72 M/UL (4.70-6.10) L 2.27 M/UL (4.70-6.10) L Hemoglobin 8.8 G/DL (14.2-18.0) L 7.4 G/DL (14.2-18.0) L Hematocrit 27.3 % (42.0-52.0) L 22.9 % (42.0-52.0) L Mean Corpuscular Volume 101 FL (80-99) H 101 FL (80-99) H Mean Corpuscular Hemoglobin 32.3 PG (27.0-31.0) H 32.5 PG (27.0-31.0) H Mean Corpuscular Hemoglobin Concent 32.2 G/DL (32.0-36.0) 32.1 G/DL (32.0-36.0) Red Cell Distribution Width 12.1 % (11.6-14.8) 12.0 % (11.6-14.8) Platelet Count 253 K/UL (150-450) 218 K/UL (150-450) Mean Platelet Volume 5.7 FL (6.5-10.1) L 6.1 FL (6.5-10.1) L Neutrophils (%) (Auto) 61.5 % (45.0-75.0) % (45.0-75.0) Lymphocytes (%) (Auto) 23.6 % (20.0-45.0) % (20.0-45.0) Monocytes (%) (Auto) 11.1 % (1.0-10.0) H % (1.0-10.0) Eosinophils (%) (Auto) 3.1 % (0.0-3.0) H % (0.0-3.0) Basophils (%) (Auto) 0.8 % (0.0-2.0) % (0.0-2.0) Sodium Level 143 MMOL/L (136-145) 140 MMOL/L (136-145) Potassium Level 4.8 MMOL/L (3.5-5.1) 4.9 MMOL/L (3.5-5.1) Chloride Level 110 MMOL/L (98-107) H 112 MMOL/L (98-107) H Carbon Dioxide Level 21 MMOL/L (21-32) 17 MMOL/L (21-32) L Anion Gap 12 mmol/L (5-15) 11 mmol/L (5-15) Blood Urea Nitrogen 72 mg/dL (7-18) H 69 mg/dL (7-18) H Creatinine 6.4 MG/DL (0.55-1.30) H 6.0 MG/DL (0.55-1.30) H Estimat Glomerular Filtration Rate 10.8 mL/min (>60) 11.5 mL/min (>60) Glucose Level 86 MG/DL (74-106) 71 MG/DL (74-106) L Calcium Level 9.1 MG/DL (8.5-10.1) 8.6 MG/DL (8.5-10.1) Total Bilirubin 0.3 MG/DL (0.2-1.0) Aspartate Amino Transf (AST/SGOT) 13 U/L (15-37) L Alanine Aminotransferase (ALT/SGPT) 17 U/L (12-78) Alkaline Phosphatase 68 U/L (46-116) Troponin I 0.015 ng/mL (0.000-0.056) Total Protein 8.7 G/DL (6.4-8.2) H Albumin 3.1 G/DL (3.4-5.0) L Globulin 5.6 g/dL Albumin/Globulin Ratio 0.6 (1.0-2.7) L Thyroid Stimulating Hormone (TSH) 0.848 uiU/mL (0.358-3.740) Urine Color Pale yellow Urine Appearance Clear Urine pH 6.5 (4.5-8.0) Urine Specific [place] 1.005 (1.005-1.035) Urine Protein 1+ (NEGATIVE) H Urine Glucose (UA) Negative (NEGATIVE) Urine Ketones Negative (NEGATIVE) Urine Blood 1+ (NEGATIVE) H Urine Nitrite Negative (NEGATIVE) Urine Bilirubin Negative (NEGATIVE) Urine Urobilinogen Normal MG/DL (0.0-1.0) Urine Leukocyte Esterase Negative (NEGATIVE) Urine RBC 0-2 /HPF (0 - 0) H Urine WBC 0-2 /HPF (0 - 0) Urine Squamous Epithelial Cells Occasional /LPF Urine Bacteria Occasional /HPF (NONE) Height (Feet): 5 Height (Inches): 7.00 Weight (Pounds): 203 Medications Current Medications Medications (Trade) Dose Ordered Sig/Bee Route PRN Reason Start Time Stop Time Status Last Admin Dose Admin Apixaban (Eliquis) 2.5 mg BID ORAL 10/27/18 09:00 11/26/18 08:59 10/27/18 08:30 Calcium Acetate (Phoslo) 667 mg DAILY ORAL 10/27/18 09:00 11/26/18 08:59 Pantoprazole (Protonix) 40 mg DAILY ORAL 10/27/18 09:00 11/26/18 08:59 10/27/18 08:30 Risperidone (RisperDAL) 1 mg DAILY@2100 ORAL 10/27/18 21:00 11/26/18 20:59 Valproate Sodium 500 mg/Dextrose 60 ml @ 60 mls/hr Q8HR IVPB 10/26/18 22:30 11/25/18 22:29 10/27/18 06:08 Objective Narrative General Appearance: no apparent distress, alert, agitated Lines, tubes and drains: peripheral HEENT: normocephalic, atraumatic, anicteric, mucous membranes moist, PERRL Neck: non-tender, normal alignment, supple, normal inspection Respiratory/Chest: chest wall non-tender, lungs clear, normal breath sounds, no respiratory distress, no accessory muscle use, respiratory distress Cardiovascular/Chest: normal peripheral pulses, normal rate, regular rhythm Abdomen: normal bowel sounds, non tender, soft, no organomegaly, no mass Extremities: normal range of motion, non-tender, normal inspection, no calf tenderness, normal capillary refill, non-pitting Skin Exam: normal pigmentation, warm/dry, cyanotic 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, no motor/sensory deficits, alert, oriented x 3, responsive, normal mood/affect Assessment/Plan Problem List: (1) Fluid overload ICD Codes: E87.70 - Fluid overload, unspecified SNOMED: 57039788 (2) Hyperkalemia ICD Codes: E87.5 - Hyperkalemia SNOMED: 20925852 Status: stable Assessment/Plan (1) Fluid overload ICD Codes: E87.70 - Fluid overload, unspecified SNOMED: 94276096 due to noncompliance with HD nephro consulted (2) Hyperkalemia ICD Codes: E87.5 - Hyperkalemia SNOMED: 56973684 K 4.9 med noncompliance HD per nephro cont to monitor K (1) Psychiatric disorder Assessment & Plan: schizophrenia will resume meds valproic depakote ICD Codes: F99 - Mental disorder, not otherwise specified SNOMED: 85385063, 667672157 (2) ESRD (end stage renal disease) Assessment & Plan: has been refusing last 3 HD session K 4.8 now nephrology called by ED plan for HD ICD Codes: N18.6 - End stage renal disease SNOMED: 52641032 (4) DVT (deep venous thrombosis) Assessment & Plan: resume home eliquis ICD Codes: I82.409 - Acute embolism and thrombosis of unspecified deep veins of unspecified lower extremity SNOMED: 554086143 Qualifiers: Qualified Codes: I82.509 - Chronic embolism and thrombosis of unspecified deep veins of unspecified lower extremity (5) Schizophrenia Assessment & Plan: stable monitor currently stable ICD Codes: F20.9 - Schizophrenia, unspecified SNOMED: 51223497 (6) Noncompliance of patient with renal dialysis Assessment & Plan: noncompliant with HD missed last 3 HD likely due to psych issues/schizophrenia educated on importance of compliance ICD Codes: Z91.15 - Patient's noncompliance with renal dialysis SNOMED: 784999398002121 (7) Anemia in chronic kidney disease, on chronic dialysis Assessment & Plan: stable mcv 99 to 101 continue to monitor no acute bleeding due to esrd on hd nephro following ICD Codes: N18.6 - End stage renal disease; D63.1 - Anemia in chronic kidney disease; Z99.2 - Dependence on renal dialysis SNOMED: 060835258, 399492191, 221642324 Status: stable Assessment/Plan ppx: eliquis diet; renal hd DVT Prophylaxis: SCD, eliquis Code Status: Full Hospital Classification Declaration: Based on this initial evaluation, and depending on the patient's clinical course, I anticipate that this patient will require hospitalization for 2 midnight for HD and close respiratory/hemodynamic monitoring. Disposition: Once the patient is stable to leave the hospital, I anticipate the patient will likely be discharged to the following environment: SNF I spent 70 minutes on this patient's case, and 40 minutes were dedicated to counseling and/or care coordination. Discussed with patient/family, nursing staff, SW/CM regarding clinical status, treatment course, and disposition planning. Time of note may not reflect time of encounter. Date of Discussion: 10/26/18 A [id number] discussion with the patient regarding the patient's advanced care planning took place during this hospitalization on the above date. The discussion included the explanation and discussion of advance directives and associated forms/documents, as well as the patient's current code status. We also discussed at length the patient's medical conditions (both acute and chronic), general prognosis, treatment options, and goals of care. The following summarizes the discussion: Advance Care Planning/Goals of Care: - Will attempt to fill out an AD and/or POLST with the patient prior to discharge, if not already completed - Continue current evaluation and management of any acute and chronic medical issues - Will continue to support the patient/family - Will continue to discuss both short- and long-term goals of care DPOA-HC/Surrogate Decision Maker: None currently appointed Code Status: Full Code AD Forms/Documents Completed: Deferred A total of 32 minutes was spent on this discussion, including counseling, answering questions, and completing, if any, pertinent advanced care planning forms/documents. Aleshia Shaffer MD Oct 27, 2018 13:05
--- NOTE | 2018-10-27 13:57 | Consultation ---
Consult Note Consult Note Patient is a 63-year-old male brought in by balance for increased confusion. The patient had prior history of end-stage renal disease and had missed his last 2 weeks of dialysis. Patient had prior history of psychosis. Patient had recently been on a psychiatric hold. Patient was noted to have increased agitation and altered mental status. Allergies: Coded Allergies: FLUPHENAZINE (Verified Allergy, Unknown, 10/03/18) HALOPERIDOL (Verified Allergy, Unknown, 10/03/18) interviewed data reviewed Assessment/Plan - ESRD (end stage renal disease) - Noncompliance of patient with renal dialysis - Anemia of CKD -DVT (deep venous thrombosis) -Schizophrenia / Psychiatric disorder HD in am Per Psych adjust meds per orders Elbert Deng MD Oct 27, 2018 13:57
[2018-10-27 16:00] VITALS: BP 108/64
[2018-10-27] MEDS: Docusate 100mg cap ORAL SCH (17:47)
[2018-10-27 20:00] VITALS: BP 148/84
--- NOTE | 2018-10-27 21:52 | Consultation ---
History of Present Illness General Chief Complaint: General Complaint Present Illness HPI 63-year-old male brought in by balance for increased confusion. the pt was agitated and confuse the pt was attempting to come out of bed Allergies: Coded Allergies: FLUPHENAZINE (Verified Allergy, Unknown, 10/03/18) HALOPERIDOL (Verified Allergy, Unknown, 10/03/18) Medication History Scheduled Apixaban (Eliquis), 2.5 MG PO BID, (Reported) Bisacodyl* (Dulcolax*), 10 MG ORAL ONCE, (Reported) Cholecalciferol (Vitamin D3) (Decara), 25,000 UNIT PO ONCE A WEEK, (Reported) Docusate Sodium* (Docusate Sodium*), 100 MG ORAL THREE TIMES A DAY, (Reported) Ferrous Sulfate (Iron), 325 MG PO DAILY, (Reported) Ferrous Sulfate* (Ferrous Sulfate*), 325 MG ORAL DAILY, (Reported) Pantoprazole* (Protonix*), 40 MG ORAL DAILY, (Reported) Pantoprazole* (Protonix*), 40 MG ORAL DAILY, (Reported) Sennosides (Magui-Rashida), 8.6 MG PO DAILY, (Reported) Valproate Sodium (Valproic Acid), 500 MG PO TID, (Reported) Vitamin B Cmplx/Vit C/Folic AC (Nephro-Kyree Tablet), 1 TAB ORAL DAILY, (Reported ) Vitamin B Cmplx/Vit C/Folic AC (Nephro-Kyree Tablet), 1 TAB ORAL DAILY, (Reported ) Scheduled PRN Ondansetron* (Zofran*), 4 MG ORAL Q6H PRN for Nausea & Vomiting, (Reported) Ondansetron* (Zofran*), 4 MG ORAL Q6H PRN for Nausea & Vomiting, (Reported) Miscellaneous Medications Bisacodyl (Dulcolax), 10 MG RC, (Reported) Calcium Acetate (Calcium Acetate), 667 MG PO, (Reported) Patient History Limited by: medical condition History Provided By: Patient, Medical Record Healthcare decision maker Resuscitation status Full Code Advanced Directive on File No Past Medical/Surgical History Past Medical/Surgical History: (1) Psychiatric disorder (2) DVT (deep venous thrombosis) (3) Anemia in chronic kidney disease, on chronic dialysis (4) Noncompliance of patient with renal dialysis (5) Psyche disturbed with normal general body function (6) Fluid overload (7) Hyperkalemia (8) Schizophrenia (9) ESRD (end stage renal disease) (10) Anemia in CKD (chronic kidney disease) Review of Systems Psychiatric: Reports: prior hx, anxiety, depressed feelings, hallucinations Physical Exam General Appearance: confused, moderate distress, agitated Last 24 Hour Vital Signs Date Time Temp Pulse Resp B/P (MAP) Pulse Ox O2 Delivery O2 Flow Rate FiO2 10/27/18 20:00 Room Air 10/27/18 20:00 98.7 83 20 148/84 (105) 95 10/27/18 16:09 81 10/27/18 16:00 Room Air 10/27/18 16:00 99.0 80 22 108/64 (79) 94 10/27/18 12:00 Room Air 10/27/18 12:00 97.9 81 21 128/73 (91) 94 10/27/18 11:41 81 10/27/18 08:00 97.9 84 20 134/68 (90) 94 10/27/18 08:00 97.9 84 22 134/68 (90) 94 10/27/18 08:00 Room Air 10/27/18 07:36 90 10/27/18 04:00 Room Air 10/27/18 04:00 97.6 84 20 136/81 (99) 94 10/27/18 04:00 79 10/27/18 01:13 Room Air 10/27/18 00:36 Room Air 10/27/18 00:00 71 10/27/18 00:00 98.0 78 24 147/73 (97) 100 Intake and Output 10/26/18 10/27/18 19:00 07:00 Intake Total 440 ml Output Total 950 ml Balance -510 ml Intake Oral 440 ml Output Urine Total 950 ml # Bowel Movements 1 Laboratory Tests Test 10/27/18 03:10 White Blood Count 6.6 K/UL (4.8-10.8) Red Blood Count 2.27 M/UL (4.70-6.10) L Hemoglobin 7.4 G/DL (14.2-18.0) L Hematocrit 22.9 % (42.0-52.0) L Mean Corpuscular Volume 101 FL (80-99) H Mean Corpuscular Hemoglobin 32.5 PG (27.0-31.0) H Mean Corpuscular Hemoglobin Concent 32.1 G/DL (32.0-36.0) Red Cell Distribution Width 12.0 % (11.6-14.8) Platelet Count 218 K/UL (150-450) Mean Platelet Volume 6.1 FL (6.5-10.1) L Neutrophils (%) (Auto) % (45.0-75.0) Lymphocytes (%) (Auto) % (20.0-45.0) Monocytes (%) (Auto) % (1.0-10.0) Eosinophils (%) (Auto) % (0.0-3.0) Basophils (%) (Auto) % (0.0-2.0) Sodium Level 140 MMOL/L (136-145) Potassium Level 4.9 MMOL/L (3.5-5.1) Chloride Level 112 MMOL/L (98-107) H Carbon Dioxide Level 17 MMOL/L (21-32) L Anion Gap 11 mmol/L (5-15) Blood Urea Nitrogen 69 mg/dL (7-18) H Creatinine 6.0 MG/DL (0.55-1.30) H Estimat Glomerular Filtration Rate 11.5 mL/min (>60) Glucose Level 71 MG/DL (74-106) L Calcium Level 8.6 MG/DL (8.5-10.1) C-Reactive Protein, Quantitative < 0.4 mg/dL (0.00-0.90) Height (Feet): 5 Height (Inches): 7.00 Weight (Pounds): 203 Medications Current Medications Medications (Trade) Dose Ordered Sig/Bee Route PRN Reason Start Time Stop Time Status Last Admin Dose Admin Apixaban (Eliquis) 2.5 mg BID ORAL 10/27/18 09:00 11/26/18 08:59 10/27/18 08:30 Calcium Acetate (Phoslo) 667 mg TID ORAL 10/27/18 18:00 11/26/18 08:59 Docusate Sodium (Colace) 100 mg THREE TIMES A DAY ORAL 10/27/18 18:00 11/26/18 17:59 Pantoprazole (Protonix) 40 mg DAILY ORAL 10/27/18 09:00 1/19/19 08:59 10/27/18 08:30 Risperidone (RisperDAL) 1 mg DAILY@2100 ORAL 10/27/18 21:00 11/26/18 20:59 10/27/18 20:59 Valproate Sodium 500 mg/Dextrose 60 ml @ 60 mls/hr Q8HR IVPB 10/26/18 22:30 11/25/18 22:29 10/27/18 21:05 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
[2018-10-28] VITALS: BP 145/81
[2018-10-28 04:00] VITALS: BP 136/79
[2018-10-28 05:50] LABS: HEMATOCRIT 23.6 % (42.0-52.0); HEMOGLOBIN 7.7 G/DL (14.2-18.0); MEAN CORPUSCULAR VOLUME 100 FL (80-99); PLATELET COUNT 228 K/UL (150-450); RED BLOOD COUNT 2.37 M/UL (4.70-6.10); RED CELL DISTRIBUTION WIDTH 11.9 % (11.6-14.8)
[2018-10-28] MEDS: Valproate Sodium INJ 500 MG in D5W 55 ML IVPB SCH ×3 (06:01→21:57)
[2018-10-28 06:46] LABS: ALANINE AMINOTRANSFERASE 12 U/L (12-78); ALBUMIN 2.8 G/DL (3.4-5.0); ALBUMIN/GLOBULIN RATIO 0.6 (1.0-2.7); ALKALINE PHOSPHATASE 60 U/L (46-116); ANION GAP 9 mmol/L (5-15); ASPARTATE AMINO TRANSFERASE 14 U/L (15-37); BILIRUBIN,TOTAL 0.3 MG/DL (0.2-1.0); BLOOD UREA NITROGEN 72 mg/dL (7-18); CALCIUM 8.9 MG/DL (8.5-10.1); CARBON DIOXIDE 19 MMOL/L (21-32); CHLORIDE 111 MMOL/L (98-107); CHOLESTEROL 122 MG/DL (< 200); CREATININE 6.1 MG/DL (0.55-1.30); FERRITIN 704 NG/ML (8-388); GAMMA GLUTAMYL TRANSPEPTIDASE 16 U/L (5-85); HDL CHOLESTEROL 49 MG/DL (40-60); PHOSPHORUS 3.7 MG/DL (2.5-4.9); SODIUM 139 MMOL/L (136-145); TRIGLYCERIDES 42 MG/DL (30-150)
[2018-10-28 08:00] VITALS: BP 135/86
[2018-10-28] MEDS: Calcium Acetate 667mg Tab ORAL SCH ×3 (08:48→17:53)
[2018-10-28] MEDS: Docusate 100mg cap ORAL SCH ×3 (08:48→17:53)
[2018-10-28] MEDS: Eliquis 2.5mg tablet ORAL SCH ×2 (08:49→21:16)
--- NOTE | 2018-10-28 09:31 | Nephrology Progress Note ---
Assessment/Plan Problem List: (1) ESRD (end stage renal disease) (2) Schizophrenia (3) Anemia in CKD (chronic kidney disease) Assessment - ESRD (end stage renal disease) - Noncompliance of patient with renal dialysis - Anemia of CKD -DVT (deep venous thrombosis) -Schizophrenia / Psychiatric disorder Plan HD today refuses care Per Psych adjust meds per orders Subjective ROS Limited/Unobtainable: No Objective Objective Last 24 Hour Vital Signs Date Time Temp Pulse Resp B/P (MAP) Pulse Ox O2 Delivery O2 Flow Rate FiO2 10/28/18 08:09 83 10/28/18 04:00 85 10/28/18 04:00 Room Air 10/28/18 04:00 97.6 77 20 136/79 (98) 93 10/28/18 00:00 99.4 88 20 145/81 (102) 92 10/28/18 00:00 Room Air 10/28/18 00:00 82 10/27/18 20:00 Room Air 10/27/18 20:00 90 10/27/18 20:00 98.7 83 20 148/84 (105) 95 10/27/18 16:09 81 10/27/18 16:00 Room Air 10/27/18 16:00 99.0 80 22 108/64 (79) 94 10/27/18 12:00 Room Air 10/27/18 12:00 97.9 81 21 128/73 (91) 94 10/27/18 11:41 81 Intake and Output 10/27/18 10/28/18 19:00 07:00 Intake Total 470 ml 1160 ml Output Total 750 ml 1610 ml Balance -280 ml -450 ml Intake Oral 350 ml 1100 ml IV Total 120 ml 60 ml Output Urine Total 750 ml 1610 ml Laboratory Tests 10/28/18 03:30: White Blood Count 7.0, Red Blood Count 2.37L, Hemoglobin 7.7L, Hematocrit 23.6L , Mean Corpuscular Volume 100H, Mean Corpuscular Hemoglobin 32.5H, Mean Corpuscular Hemoglobin Concent 32.5, Red Cell Distribution Width 11.9, Platelet Count 228, Mean Platelet Volume 6.1L, Neutrophils (%) (Auto) , Lymphocytes (%) ( Auto) , Monocytes (%) (Auto) , Eosinophils (%) (Auto) , Basophils (%) (Auto) , Sodium Level 139, Potassium Level 5.0, Chloride Level 111H, Carbon Dioxide Level 19L, Anion Gap 9, Blood Urea Nitrogen 72H, Creatinine 6.1H, Estimat Glomerular Filtration Rate 11.4, Glucose Level 69L, Hemoglobin A1c 4.4, Uric Acid 7.6H, Calcium Level 8.9, Phosphorus Level 3.7, Magnesium Level 1.8, Ferritin 704H, Total Bilirubin 0.3, Gamma Glutamyl Transpeptidase 16, Aspartate Amino Transf (AST/SGOT) 14L, Alanine Aminotransferase (ALT/SGPT) 12, Alkaline Phosphatase 60, Troponin I 0.007, Pro-B-Type Natriuretic Peptide 2957H, Total Protein 7.4, Albumin 2.8L, Globulin 4.6, Albumin/Globulin Ratio 0.6L, Triglycerides Level 42, Cholesterol Level 122, LDL Cholesterol 67, HDL Cholesterol 49, Cholesterol/HDL Ratio 2.5L, Vitamin B12 Level 420, Folate 19.3, Thyroid Stimulating Hormone (TSH) 0.626 Height (Feet): 5 Height (Inches): 7.00 Weight (Pounds): 198 General Appearance: mild distress, other - has internal conversation ! Cardiovascular: normal rate Respiratory/Chest: decreased breath sounds Abdomen: distended Objective uncooperative Elbert Deng MD Oct 28, 2018 09:31
--- NOTE | 2018-10-28 09:41 | General Progress Note ---
Assessment/Plan Problem List: (1) Fluid overload ICD Codes: E87.70 - Fluid overload, unspecified SNOMED: 26948337 (2) Hyperkalemia ICD Codes: E87.5 - Hyperkalemia SNOMED: 31284708 Status: stable Assessment/Plan (1) Fluid overload ICD Codes: E87.70 - Fluid overload, unspecified SNOMED: 69870962 due to noncompliance with HD nephro consulted (2) Hyperkalemia ICD Codes: E87.5 - Hyperkalemia SNOMED: 47298624 K 5 med noncompliance HD per nephro, patient refused HD cont to monitor K (1) Psychiatric disorder Assessment & Plan: schizophrenia will resume meds valproic depakote ICD Codes: F99 - Mental disorder, not otherwise specified SNOMED: 68053136, 350056032 (2) ESRD (end stage renal disease) Assessment & Plan: has been refusing last 3 HD session K 5 now nephrology following, refused HD today plan for HD ICD Codes: N18.6 - End stage renal disease SNOMED: 43693493 (4) DVT (deep venous thrombosis) Assessment & Plan: resume home eliquis ICD Codes: I82.409 - Acute embolism and thrombosis of unspecified deep veins of unspecified lower extremity SNOMED: 914177954 Qualifiers: Qualified Codes: I82.509 - Chronic embolism and thrombosis of unspecified deep veins of unspecified lower extremity (5) Schizophrenia Assessment & Plan: stable monitor currently stable psych consulted ICD Codes: F20.9 - Schizophrenia, unspecified SNOMED: 89811040 (6) Noncompliance of patient with renal dialysis Assessment & Plan: noncompliant with HD missed last 3 HD likely due to psych issues/schizophrenia educated on importance of compliance ICD Codes: Z91.15 - Patient's noncompliance with renal dialysis SNOMED: 528294495713137 (7) Anemia in chronic kidney disease, on chronic dialysis Assessment & Plan: stable mcv 99 to 101 continue to monitor no acute bleeding due to esrd on hd nephro following ICD Codes: N18.6 - End stage renal disease; D63.1 - Anemia in chronic kidney disease; Z99.2 - Dependence on renal dialysis SNOMED: 474518628, 320786719, 362345615 Status: stable Assessment/Plan ppx: eliquis diet; renal hd DVT Prophylaxis: SCD, eliquis Code Status: Full Hospital Classification Declaration: Based on this initial evaluation, and depending on the patient's clinical course, I anticipate that this patient will require hospitalization for 2 midnight for HD and close respiratory/hemodynamic monitoring. Disposition: Once the patient is stable to leave the hospital, I anticipate the patient will likely be discharged to the following environment: SNF I spent 70 minutes on this patient's case, and 40 minutes were dedicated to counseling and/or care coordination. Discussed with patient/family, nursing staff, SW/CM regarding clinical status, treatment course, and disposition planning. Time of note may not reflect time of encounter. I have reviewed all imaging, labs and medications with patient Subjective Date patient seen: Oct 28, 2018 Time patient seen: 09:39 Allergies: Coded Allergies: FLUPHENAZINE (Verified Allergy, Unknown, 10/03/18) HALOPERIDOL (Verified Allergy, Unknown, 10/03/18) Subjective f/u esrd on hd, noncompliance, schizophrenia psych consulted patient refused HD patient denies any complaints patient wants to leave very agitated no cute events overnight no fevers/chills ROS: 14 point ROS reviewed and negative except per above subjective Objective Last 24 Hour Vital Signs Date Time Temp Pulse Resp B/P (MAP) Pulse Ox O2 Delivery O2 Flow Rate FiO2 10/28/18 08:09 83 10/28/18 04:00 85 10/28/18 04:00 Room Air 10/28/18 04:00 97.6 77 20 136/79 (98) 93 10/28/18 00:00 99.4 88 20 145/81 (102) 92 10/28/18 00:00 Room Air 10/28/18 00:00 82 10/27/18 20:00 Room Air 10/27/18 20:00 90 10/27/18 20:00 98.7 83 20 148/84 (105) 95 10/27/18 16:09 81 10/27/18 16:00 Room Air 10/27/18 16:00 99.0 80 22 108/64 (79) 94 10/27/18 12:00 Room Air 10/27/18 12:00 97.9 81 21 128/73 (91) 94 10/27/18 11:41 81 Intake and Output 10/27/18 10/28/18 19:00 07:00 Intake Total 470 ml 1160 ml Output Total 750 ml 1610 ml Balance -280 ml -450 ml Intake Oral 350 ml 1100 ml IV Total 120 ml 60 ml Output Urine Total 750 ml 1610 ml Laboratory Tests 10/28/18 03:30: White Blood Count 7.0, Red Blood Count 2.37L, Hemoglobin 7.7L, Hematocrit 23.6L , Mean Corpuscular Volume 100H, Mean Corpuscular Hemoglobin 32.5H, Mean Corpuscular Hemoglobin Concent 32.5, Red Cell Distribution Width 11.9, Platelet Count 228, Mean Platelet Volume 6.1L, Neutrophils (%) (Auto) , Lymphocytes (%) ( Auto) , Monocytes (%) (Auto) , Eosinophils (%) (Auto) , Basophils (%) (Auto) , Sodium Level 139, Potassium Level 5.0, Chloride Level 111H, Carbon Dioxide Level 19L, Anion Gap 9, Blood Urea Nitrogen 72H, Creatinine 6.1H, Estimat Glomerular Filtration Rate 11.4, Glucose Level 69L, Hemoglobin A1c 4.4, Uric Acid 7.6H, Calcium Level 8.9, Phosphorus Level 3.7, Magnesium Level 1.8, Ferritin 704H, Total Bilirubin 0.3, Gamma Glutamyl Transpeptidase 16, Aspartate Amino Transf (AST/SGOT) 14L, Alanine Aminotransferase (ALT/SGPT) 12, Alkaline Phosphatase 60, Troponin I 0.007, Pro-B-Type Natriuretic Peptide 2957H, Total Protein 7.4, Albumin 2.8L, Globulin 4.6, Albumin/Globulin Ratio 0.6L, Triglycerides Level 42, Cholesterol Level 122, LDL Cholesterol 67, HDL Cholesterol 49, Cholesterol/HDL Ratio 2.5L, Vitamin B12 Level 420, Folate 19.3, Thyroid Stimulating Hormone (TSH) 0.626 Height (Feet): 5 Height (Inches): 7.00 Weight (Pounds): 198 Objective General Appearance: no apparent distress, alert, agitated Lines, tubes and drains: peripheral HEENT: normocephalic, atraumatic, anicteric, mucous membranes moist, PERRL Neck: non-tender, normal alignment, supple, normal inspection Respiratory/Chest: chest wall non-tender, lungs clear, normal breath sounds, no respiratory distress, no accessory muscle use, respiratory distress Cardiovascular/Chest: normal peripheral pulses, normal rate, regular rhythm Abdomen: normal bowel sounds, non tender, soft, no organomegaly, no mass Extremities: normal range of motion, non-tender, normal inspection, no calf tenderness, normal capillary refill, non-pitting Skin Exam: normal pigmentation, warm/dry, cyanotic 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
[2018-10-28 12:00] VITALS: BP 137/75
[2018-10-28] MEDS ORDERED: Haloperidol 5mg/ml Inj IM PRN ×2 (15:22→17:30)
[2018-10-28 16:00] VITALS: BP 116/52
[2018-10-28] MEDS ORDERED: LORazepam Inj 2mg/ml 1ml IM PRN (18:15)
[2018-10-28 20:00] VITALS: BP 132/86
[2018-10-29] VITALS: BP 125/74
[2018-10-29 04:00] VITALS: BP 114/56
[2018-10-29] MEDS: Valproate Sodium INJ 500 MG in D5W 55 ML IVPB SCH ×3 (05:18→21:44)
[2018-10-29 07:22] LABS: HEMATOCRIT 24.1 % (42.0-52.0); HEMOGLOBIN 7.9 G/DL (14.2-18.0); MEAN CORPUSCULAR VOLUME 97 FL (80-99); PLATELET COUNT 217 K/UL (150-450); RED BLOOD COUNT 2.47 M/UL (4.70-6.10); RED CELL DISTRIBUTION WIDTH 11.7 % (11.6-14.8); WHITE BLOOD COUNT 6.7 K/UL (4.8-10.8)
[2018-10-29 07:42] LABS: ALANINE AMINOTRANSFERASE 11 U/L (12-78); ALBUMIN 2.8 G/DL (3.4-5.0); ALBUMIN/GLOBULIN RATIO 0.6 (1.0-2.7); ALKALINE PHOSPHATASE 56 U/L (46-116); ANION GAP 9 mmol/L (5-15); ASPARTATE AMINO TRANSFERASE 12 U/L (15-37); BILIRUBIN,TOTAL 0.3 MG/DL (0.2-1.0); BLOOD UREA NITROGEN 53 mg/dL (7-18); CALCIUM 8.8 MG/DL (8.5-10.1); CARBON DIOXIDE 25 MMOL/L (21-32); CHLORIDE 105 MMOL/L (98-107); POTASSIUM 3.9 MMOL/L (3.5-5.1); SODIUM 139 MMOL/L (136-145)
[2018-10-29 08:00] VITALS: BP 122/73
[2018-10-29] MEDS: Docusate 100mg cap ORAL SCH ×3 (08:58→17:20)
[2018-10-29] MEDS: Calcium Acetate 667mg Tab ORAL SCH ×3 (08:59→17:20)
[2018-10-29] MEDS: Eliquis 2.5mg tablet ORAL SCH ×2 (08:59→20:20)
--- NOTE | 2018-10-29 10:15 | General Progress Note ---
Assessment/Plan Problem List: (1) Fluid overload ICD Codes: E87.70 - Fluid overload, unspecified SNOMED: 34119545 (2) Hyperkalemia ICD Codes: E87.5 - Hyperkalemia SNOMED: 17004543 Status: stable Assessment/Plan (1) Fluid overload ICD Codes: E87.70 - Fluid overload, unspecified SNOMED: 31790757 due to noncompliance with HD nephro consulted (2) Hyperkalemia ICD Codes: E87.5 - Hyperkalemia SNOMED: 10177680 resolved med noncompliance HD per nephro cont to monitor K (1) Psychiatric disorder Assessment & Plan: schizophrenia will resume meds valproic depakote ICD Codes: F99 - Mental disorder, not otherwise specified SNOMED: 29418527, 826426399 (2) ESRD (end stage renal disease) Assessment & Plan: has been refusing last 3 HD session nephrology following, refused HD today plan for HD ICD Codes: N18.6 - End stage renal disease SNOMED: 59344895 (4) DVT (deep venous thrombosis) Assessment & Plan: resume home eliquis ICD Codes: I82.409 - Acute embolism and thrombosis of unspecified deep veins of unspecified lower extremity SNOMED: 160021130 Qualifiers: Qualified Codes: I82.509 - Chronic embolism and thrombosis of unspecified deep veins of unspecified lower extremity (5) Schizophrenia Assessment & Plan: stable monitor currently stable psych consulted ICD Codes: F20.9 - Schizophrenia, unspecified SNOMED: 26256810 (6) Noncompliance of patient with renal dialysis Assessment & Plan: noncompliant with HD missed last 3 HD likely due to psych issues/schizophrenia educated on importance of compliance ICD Codes: Z91.15 - Patient's noncompliance with renal dialysis SNOMED: 585708630645531 (7) Anemia in chronic kidney disease, on chronic dialysis Assessment & Plan: stable mcv 99 to 101 continue to monitor no acute bleeding due to esrd on hd nephro following ICD Codes: N18.6 - End stage renal disease; D63.1 - Anemia in chronic kidney disease; Z99.2 - Dependence on renal dialysis SNOMED: 092268511, 052152740, 102637978 Status: stable Assessment/Plan ppx: eliquis diet; renal hd DVT Prophylaxis: SCD, eliquis Code Status: Full Hospital Classification Declaration: Based on this initial evaluation, and depending on the patient's clinical course, I anticipate that this patient will require hospitalization for 2 midnight for HD and close respiratory/hemodynamic monitoring. Disposition: Once the patient is stable to leave the hospital, I anticipate the patient will likely be discharged to the following environment: SNF I spent 50 minutes on this patient's case, and 30 minutes were dedicated to counseling and/or care coordination. Discussed with patient/family, nursing staff, SW/CM regarding clinical status, treatment course, and disposition planning. Time of note may not reflect time of encounter. I have reviewed all imaging, labs and medications with patient Subjective Date patient seen: Oct 29, 2018 Time patient seen: 10:13 Allergies: Coded Allergies: FLUPHENAZINE (Verified Allergy, Unknown, 10/03/18) HALOPERIDOL (Verified Allergy, Unknown, 10/03/18) Subjective f/u esrd on hd, noncompliance, schizophrenia appreciate psych eval dialysis done yesterday, patient ended up agreeing to HD after long discussion patient stable today patient pending SNF placement ROS: 14 point ROS reviewed and negative except per above subjective Objective Last 24 Hour Vital Signs Date Time Temp Pulse Resp B/P (MAP) Pulse Ox O2 Delivery O2 Flow Rate FiO2 10/29/18 08:00 98.2 90 18 122/73 (89) 94 10/29/18 04:00 98.3 72 19 114/56 (75) 93 10/29/18 00:00 98.6 85 19 125/74 (91) 94 10/28/18 21:34 Room Air 10/28/18 20:00 98.5 76 18 132/86 (101) 94 10/28/18 16:00 Room Air 10/28/18 16:00 97.9 89 22 116/52 (73) 94 10/28/18 15:32 88 10/28/18 12:01 87 10/28/18 12:00 Room Air 10/28/18 12:00 97.5 80 22 137/75 (95) 95 Intake and Output 10/28/18 10/29/18 19:00 07:00 Intake Total 560 ml 180 ml Output Total 2000 ml 425 ml Balance -1440 ml -245 ml Intake Oral 500 ml 120 ml IV Total 60 ml 60 ml Output Urine Total 425 ml Hemodialysis UF 2000 ml # Bowel Movements 1 Laboratory Tests 10/29/18 06:30: White Blood Count 6.7, Red Blood Count 2.47L, Hemoglobin 7.9L, Hematocrit 24.1L , Mean Corpuscular Volume 97, Mean Corpuscular Hemoglobin 32.0H, Mean Corpuscular Hemoglobin Concent 32.8, Red Cell Distribution Width 11.7, Platelet Count 217, Mean Platelet Volume 6.4L, Neutrophils (%) (Auto) , Lymphocytes (%) ( Auto) , Monocytes (%) (Auto) , Eosinophils (%) (Auto) , Basophils (%) (Auto) , Neutrophils % (Manual) [Pending], Lymphocytes % (Manual) [Pending], Platelet Estimate [Pending], Platelet Morphology [Pending], Sodium Level 139, Potassium Level 3.9, Chloride Level 105, Carbon Dioxide Level 25, Anion Gap 9, Blood Urea Nitrogen 53H, Creatinine 5.0H, Estimat Glomerular Filtration Rate 14.3, Glucose Level 81, Calcium Level 8.8, Total Bilirubin 0.3, Aspartate Amino Transf (AST/ SGOT) 12L, Alanine Aminotransferase (ALT/SGPT) 11L, Alkaline Phosphatase 56, Total Protein 7.3, Albumin 2.8L, Globulin 4.5, Albumin/Globulin Ratio 0.6L Height (Feet): 5 Height (Inches): 7.00 Weight (Pounds): 200 Objective General Appearance: no apparent distress, alert, agitated Lines, tubes and drains: peripheral HEENT: normocephalic, atraumatic, anicteric, mucous membranes moist, PERRL Neck: non-tender, normal alignment, supple, normal inspection Respiratory/Chest: chest wall non-tender, lungs clear, normal breath sounds, no respiratory distress, no accessory muscle use, respiratory distress Cardiovascular/Chest: normal peripheral pulses, normal rate, regular rhythm Abdomen: normal bowel sounds, non tender, soft, no organomegaly, no mass Extremities: normal range of motion, non-tender, normal inspection, no calf tenderness, normal capillary refill, non-pitting Skin Exam: normal pigmentation, warm/dry, cyanotic 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
[2018-10-29 11:58] VITALS: BP 126/53
--- NOTE | 2018-10-29 14:41 | Nephrology Progress Note ---
Assessment/Plan Problem List: (1) ESRD (end stage renal disease) (2) Schizophrenia (3) Anemia in CKD (chronic kidney disease) Assessment - ESRD (end stage renal disease) - Noncompliance of patient with renal dialysis - Anemia of CKD -DVT (deep venous thrombosis) -Schizophrenia / Psychiatric disorder Plan HD 10/28 next 10/31 refuses care periodically Per Psych adjust meds per orders Subjective ROS Limited/Unobtainable: No Objective Objective Last 24 Hour Vital Signs Date Time Temp Pulse Resp B/P (MAP) Pulse Ox O2 Delivery O2 Flow Rate FiO2 10/29/18 11:58 98.6 79 20 126/53 (77) 99 10/29/18 08:15 Room Air 10/29/18 08:00 98.2 90 18 122/73 (89) 94 10/29/18 04:00 98.3 72 19 114/56 (75) 93 10/29/18 00:00 98.6 85 19 125/74 (91) 94 10/28/18 21:34 Room Air 10/28/18 20:00 98.5 76 18 132/86 (101) 94 10/28/18 16:00 Room Air 10/28/18 16:00 97.9 89 22 116/52 (73) 94 10/28/18 15:32 88 Intake and Output 10/28/18 10/29/18 19:00 07:00 Intake Total 560 ml 180 ml Output Total 2000 ml 425 ml Balance -1440 ml -245 ml Intake Oral 500 ml 120 ml IV Total 60 ml 60 ml Output Urine Total 425 ml Hemodialysis UF 2000 ml # Bowel Movements 1 Laboratory Tests 10/29/18 06:30: White Blood Count 6.7, Red Blood Count 2.47L, Hemoglobin 7.9L, Hematocrit 24.1L , Mean Corpuscular Volume 97, Mean Corpuscular Hemoglobin 32.0H, Mean Corpuscular Hemoglobin Concent 32.8, Red Cell Distribution Width 11.7, Platelet Count 217, Mean Platelet Volume 6.4L, Neutrophils (%) (Auto) , Lymphocytes (%) ( Auto) , Monocytes (%) (Auto) , Eosinophils (%) (Auto) , Basophils (%) (Auto) , Differential Total Cells Counted 100, Neutrophils % (Manual) 50, Lymphocytes % ( Manual) 39, Monocytes % (Manual) 10, Eosinophils % (Manual) 0, Basophils % ( Manual) 1, Band Neutrophils 0, Platelet Estimate Adequate, Platelet Morphology Normal, Red Blood Cell Morphology Normal, Sodium Level 139, Potassium Level 3.9 , Chloride Level 105, Carbon Dioxide Level 25, Anion Gap 9, Blood Urea Nitrogen 53H, Creatinine 5.0H, Estimat Glomerular Filtration Rate 14.3, Glucose Level 81 , Calcium Level 8.8, Total Bilirubin 0.3, Aspartate Amino Transf (AST/SGOT) 12L , Alanine Aminotransferase (ALT/SGPT) 11L, Alkaline Phosphatase 56, Total Protein 7.3, Albumin 2.8L, Globulin 4.5, Albumin/Globulin Ratio 0.6L Height (Feet): 5 Height (Inches): 7.00 Weight (Pounds): 200 General Appearance: no apparent distress Cardiovascular: normal rate Respiratory/Chest: decreased breath sounds Abdomen: soft Objective uncooperative Elbert Deng MD Oct 29, 2018 14:41
[2018-10-29 14:53] LABS: % IRON SATURATION 31 % (15-50); IRON 51 ug/dL (50-175); TOTAL IRON BINDING CAPACITY 165 ug/dL (250-450)
[2018-10-29 16:00] VITALS: BP 121/57
[2018-10-29] MEDS ORDERED: NS 275ml ONE (16:33)
[2018-10-29 20:00] VITALS: BP 137/72
--- NOTE | 2018-10-29 21:51 | General Progress Note ---
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 (2) Schizophrenia ICD Codes: F20.9 - Schizophrenia, unspecified SNOMED: 22201400 Status: stable Assessment/Plan depisiah overtonaylin provided ro/st Subjective Neurologic/Psychiatric: Reports: anxiety, depressed, emotional problems Allergies: Coded Allergies: FLUPHENAZINE (Verified Allergy, Unknown, 10/03/18) HALOPERIDOL (Verified Allergy, Unknown, 10/03/18) Objective Last 24 Hour Vital Signs Date Time Temp Pulse Resp B/P (MAP) Pulse Ox O2 Delivery O2 Flow Rate FiO2 10/29/18 21:00 Room Air 10/29/18 20:00 98.7 81 19 137/72 (93) 96 10/29/18 16:00 98.0 72 22 121/57 (78) 99 10/29/18 11:58 98.6 79 20 126/53 (77) 99 10/29/18 08:15 Room Air 10/29/18 08:00 98.2 90 18 122/73 (89) 94 10/29/18 04:00 98.3 72 19 114/56 (75) 93 10/29/18 00:00 98.6 85 19 125/74 (91) 94 Intake and Output 10/28/18 10/29/18 19:00 07:00 Intake Total 560 ml 180 ml Output Total 2000 ml 425 ml Balance -1440 ml -245 ml Intake Oral 500 ml 120 ml IV Total 60 ml 60 ml Output Urine Total 425 ml Hemodialysis UF 2000 ml # Bowel Movements 1 Laboratory Tests 10/29/18 06:30: White Blood Count 6.7, Red Blood Count 2.47L, Hemoglobin 7.9L, Hematocrit 24.1L , Mean Corpuscular Volume 97, Mean Corpuscular Hemoglobin 32.0H, Mean Corpuscular Hemoglobin Concent 32.8, Red Cell Distribution Width 11.7, Platelet Count 217, Mean Platelet Volume 6.4L, Neutrophils (%) (Auto) , Lymphocytes (%) ( Auto) , Monocytes (%) (Auto) , Eosinophils (%) (Auto) , Basophils (%) (Auto) , Differential Total Cells Counted 100, Neutrophils % (Manual) 50, Lymphocytes % ( Manual) 39, Monocytes % (Manual) 10, Eosinophils % (Manual) 0, Basophils % ( Manual) 1, Band Neutrophils 0, Platelet Estimate Adequate, Platelet Morphology Normal, Red Blood Cell Morphology Normal, Sodium Level 139, Potassium Level 3.9 , Chloride Level 105, Carbon Dioxide Level 25, Anion Gap 9, Blood Urea Nitrogen 53H, Creatinine 5.0H, Estimat Glomerular Filtration Rate 14.3, Glucose Level 81 , Calcium Level 8.8, Phosphorus Level 4.5, Iron Level 51, Total Iron Binding Capacity 165L, Percent Iron Saturation 31, Unsaturated Iron Binding 114, Total Bilirubin 0.3, Aspartate Amino Transf (AST/SGOT) 12L, Alanine Aminotransferase ( ALT/SGPT) 11L, Alkaline Phosphatase 56, Total Protein 7.3, Albumin 2.8L, Globulin 4.5, Albumin/Globulin Ratio 0.6L Height (Feet): 5 Height (Inches): 7.00 Weight (Pounds): 200 General Appearance: alert, moderate distress, agitated Panda Zambrano MD Oct 29, 2018 21:51
[2018-10-30 04:00] VITALS: BP 145/88
[2018-10-30] MEDS: Valproate Sodium INJ 500 MG in D5W 55 ML IVPB SCH ×3 (06:00→21:55)
[2018-10-30 08:29] VITALS: BP 140/80
[2018-10-30] MEDS: Eliquis 2.5mg tablet ORAL SCH ×2 (08:38→20:52)
[2018-10-30] MEDS: Docusate 100mg cap ORAL SCH ×3 (08:38→17:28)
[2018-10-30] MEDS: Calcium Acetate 667mg Tab ORAL SCH ×3 (08:39→17:28)
--- NOTE | 2018-10-30 09:16 | Consultation ---
History of Present Illness General Date patient seen: Oct 30, 2018 Chief Complaint: General Complaint Present Illness Allergies: Coded Allergies: FLUPHENAZINE (Verified Allergy, Unknown, 10/03/18) HALOPERIDOL (Verified Allergy, Unknown, 10/03/18) Medication History Scheduled Apixaban (Eliquis), 2.5 MG PO BID, (Reported) Bisacodyl* (Dulcolax*), 10 MG ORAL ONCE, (Reported) Cholecalciferol (Vitamin D3) (Decara), 25,000 UNIT PO ONCE A WEEK, (Reported) Docusate Sodium* (Docusate Sodium*), 100 MG ORAL THREE TIMES A DAY, (Reported) Ferrous Sulfate (Iron), 325 MG PO DAILY, (Reported) Ferrous Sulfate* (Ferrous Sulfate*), 325 MG ORAL DAILY, (Reported) Pantoprazole* (Protonix*), 40 MG ORAL DAILY, (Reported) Pantoprazole* (Protonix*), 40 MG ORAL DAILY, (Reported) Sennosides (Magui-Rashida), 8.6 MG PO DAILY, (Reported) Valproate Sodium (Valproic Acid), 500 MG PO TID, (Reported) Vitamin B Cmplx/Vit C/Folic AC (Nephro-Kyree Tablet), 1 TAB ORAL DAILY, (Reported ) Vitamin B Cmplx/Vit C/Folic AC (Nephro-Kyree Tablet), 1 TAB ORAL DAILY, (Reported ) Scheduled PRN Ondansetron* (Zofran*), 4 MG ORAL Q6H PRN for Nausea & Vomiting, (Reported) Ondansetron* (Zofran*), 4 MG ORAL Q6H PRN for Nausea & Vomiting, (Reported) Miscellaneous Medications Bisacodyl (Dulcolax), 10 MG RC, (Reported) Calcium Acetate (Calcium Acetate), 667 MG PO, (Reported) Patient History Healthcare decision maker Resuscitation status Full Code Advanced Directive on File No Physical Exam Last 24 Hour Vital Signs Date Time Temp Pulse Resp B/P (MAP) Pulse Ox O2 Delivery O2 Flow Rate FiO2 10/30/18 08:29 97.8 79 18 140/80 (100) 99 10/30/18 04:00 98.1 85 19 145/88 (107) 95 10/29/18 21:00 Room Air 10/29/18 20:00 98.7 81 19 137/72 (93) 96 10/29/18 16:00 98.0 72 22 121/57 (78) 99 10/29/18 11:58 98.6 79 20 126/53 (77) 99 Intake and Output 10/29/18 10/30/18 18:59 06:59 Intake Total 1020 ml 540 ml Output Total 800 ml 900 ml Balance 220 ml -360 ml Intake Oral 1020 ml 480 ml IV Total 60 ml Output Urine Total 800 ml 900 ml # Voids 2 Height (Feet): 5 Height (Inches): 7.00 Weight (Pounds): 198 Medications Current Medications Medications (Trade) Dose Ordered Sig/Bee Route PRN Reason Start Time Stop Time Status Last Admin Dose Admin Apixaban (Eliquis) 2.5 mg Q12HR ORAL 10/28/18 21:00 11/27/18 20:59 10/30/18 08:38 Calcium Acetate (Phoslo) 667 mg TID ORAL 10/28/18 18:00 11/26/18 08:59 10/30/18 08:39 Docusate Sodium (Colace) 100 mg THREE TIMES A DAY ORAL 10/28/18 18:00 11/26/18 17:59 10/30/18 08:38 Lorazepam (Ativan 2mg/ml 1ml) 1 mg Q4H PRN IM Agitation 10/28/18 18:15 11/04/18 18:14 Pantoprazole (Protonix) 40 mg DAILY ORAL 10/29/18 09:00 11/26/18 08:59 10/30/18 08:37 Risperidone (RisperDAL) 1 mg DAILY@2100 ORAL 10/28/18 21:00 11/26/18 20:59 10/29/18 20:21 Valproate Sodium 500 mg/Dextrose 60 ml @ 60 mls/hr Q8HR IVPB 10/28/18 22:00 11/25/18 22:29 10/30/18 06:00 Assessment/Plan Status Narrative Hematology Consultation Date patient seen: Oct 30, 2018 ANAMARIA VAZQUEZ: Karen RFC: Anemia HPI 63 yo male with h/o dvt, esrd on hd, schizophrenia presented from [facility], missed his last 3 HD sessions. Patient is stable, denies any complaints , denies chest pain or sob. Patient labs are stable. nephrology was called by ED. patient has a long hx of noncompliance with HD. denies any BLOIVAR, N/V, Chills/ Fevers. Denies dizziness. Has been intermitted in compliance with his care, heme was consulted for anemia. Social hx: reviewed, denies smoking, alcohol use or drug use Fam hx: reviewed, denies any sig past fam hx to me Code status reviewed, would like to remain full code. Coded Allergies: FLUPHENAZINE (Verified Allergy, Unknown, 10/03/18) HALOPERIDOL (Verified Allergy, Unknown, 10/03/18) Medication History Scheduled Apixaban (Eliquis), 2.5 MG PO BID, (Reported) Bisacodyl* (Dulcolax*), 10 MG ORAL ONCE, (Reported) Cholecalciferol (Vitamin D3) (Decara), 25,000 UNIT PO ONCE A WEEK, (Reported) Docusate Sodium* (Docusate Sodium*), 100 MG ORAL THREE TIMES A DAY, (Reported) Ferrous Sulfate (Iron), 325 MG PO DAILY, (Reported) Ferrous Sulfate* (Ferrous Sulfate*), 325 MG ORAL DAILY, (Reported) Pantoprazole* (Protonix*), 40 MG ORAL DAILY, (Reported) Pantoprazole* (Protonix*), 40 MG ORAL DAILY, (Reported) Sennosides (Magui-Rashida), 8.6 MG PO DAILY, (Reported) Valproate Sodium (Valproic Acid), 500 MG PO TID, (Reported) Vitamin B Cmplx/Vit C/Folic AC (Nephro-Kyree Tablet), 1 TAB ORAL DAILY, (Reported ) Vitamin B Cmplx/Vit C/Folic AC (Nephro-Kyree Tablet), 1 TAB ORAL DAILY, (Reported ) Scheduled PRN Ondansetron* (Zofran*), 4 MG ORAL Q6H PRN for Nausea & Vomiting, (Reported) Ondansetron* (Zofran*), 4 MG ORAL Q6H PRN for Nausea & Vomiting, (Reported) Miscellaneous Medications Bisacodyl (Dulcolax), 10 MG RC, (Reported) Calcium Acetate (Calcium Acetate), 667 MG PO, (Reported) Patient History Healthcare decision maker Resuscitation status Full Code Advanced Directive on File No Review of Systems ROS Narrative 14 point ROS reviewed and negative except per the above HPI Physical Exam Last 24 Hour Vital Signs Date Time Temp Pulse Resp B/P (MAP) Pulse Ox O2 Delivery O2 Flow Rate FiO2 10/30/18 08:29 97.8 79 18 140/80 (100) 99 10/30/18 04:00 98.1 85 19 145/88 (107) 95 10/29/18 21:00 Room Air 10/29/18 20:00 98.7 81 19 137/72 (93) 96 10/29/18 16:00 98.0 72 22 121/57 (78) 99 10/29/18 11:58 98.6 79 20 126/53 (77) 99 General Appearance: no apparent distress, alert Lines, tubes and drains: peripheral HEENT: normocephalic, atraumatic, anicteric, mucous membranes moist Neck: non-tender, normal alignment, supple, normal inspection Respiratory/Chest: chest wall non-tender, lungs clear, normal breath sounds, no respiratory distress, no accessory muscle use, respiratory distress Cardiovascular/Chest: normal peripheral pulses, normal rate, regular rhythm Abdomen: normal bowel sounds, non tender, soft, no organomegaly, no mass Extremities: normal range of motion, non-tende Skin Exam: normal pigmentation, warm/dry, cyanotic Neurologic: 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 study 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 normal, no motor/sensory deficits, alert, oriented x 3, responsive, normal mood/affect Current Medications Medications (Trade) Dose Ordered Sig/Bee Route PRN Reason Start Time Stop Time Status Last Admin Dose Admin Apixaban (Eliquis) 2.5 mg Q12HR ORAL 10/28/18 21:00 11/27/18 20:59 10/30/18 08:38 Calcium Acetate (Phoslo) 667 mg TID ORAL 10/28/18 18:00 11/26/18 08:59 10/30/18 08:39 Docusate Sodium (Colace) 100 mg THREE TIMES A DAY ORAL 10/28/18 18:00 11/26/18 17:59 10/30/18 08:38 Lorazepam (Ativan 2mg/ml 1ml) 1 mg Q4H PRN IM Agitation 10/28/18 18:15 11/04/18 18:14 Pantoprazole (Protonix) 40 mg DAILY ORAL 10/29/18 09:00 11/26/18 08:59 10/30/18 08:37 Risperidone (RisperDAL) 1 mg DAILY@2100 ORAL 10/28/18 21:00 11/26/18 20:59 10/29/18 20:21 Valproate Sodium 500 mg/Dextrose 60 ml @ 60 mls/hr Q8HR IVPB 10/28/18 22:00 11/25/18 22:29 10/30/18 06:00 Labs reviewed Assessment and Recs: # Anemia of chronic disease due to underlying chronic medical issues, multifactorial --> Anemia w/u has been reviewed. Ferritin at 741 --> No evidence of hemolysis is noted, peripheral smear has been reviewed. --> Hgb goal >7. Transfuse prn. --> Pt received iv iron on prior admission --> Cont po folic acid daily --> Cont Procrit 3x a week per nephro but has refused before # DVT. Pt is on eliquis. --> has not worsened --> continue on eliquis # ESRD. On HD --> Nephrology is following. Appreciate recs. --> Pt is noncompliant with HD # Psych disorder. Psych to follow. # Hyperkalemia. K 5.1 at admission --> Currently at 5.0, wnl # Noncompliance significant history --> psych Ulices Anaya MD Oct 30, 2018 09:16
[2018-10-30 11:50] VITALS: BP 136/79
--- NOTE | 2018-10-30 12:08 | General Progress Note ---
Assessment/Plan Problem List: (1) Fluid overload ICD Codes: E87.70 - Fluid overload, unspecified SNOMED: 86987922 (2) Hyperkalemia ICD Codes: E87.5 - Hyperkalemia SNOMED: 96176061 Status: stable Assessment/Plan (1) Fluid overload ICD Codes: E87.70 - Fluid overload, unspecified SNOMED: 02131078 due to noncompliance with HD nephro consulted improving (2) Hyperkalemia ICD Codes: E87.5 - Hyperkalemia SNOMED: 23907955 resolved, cont to monitor with daily labs med noncompliance HD per nephro cont to monitor K (1) Psychiatric disorder Assessment & Plan: schizophrenia will resume meds valproic depakote ICD Codes: F99 - Mental disorder, not otherwise specified SNOMED: 75823626, 837233338 (2) ESRD (end stage renal disease) Assessment & Plan: has been refusing last 3 HD session cont hd per nephro ICD Codes: N18.6 - End stage renal disease SNOMED: 57454537 (4) DVT (deep venous thrombosis) Assessment & Plan: resume home eliquis ICD Codes: I82.409 - Acute embolism and thrombosis of unspecified deep veins of unspecified lower extremity SNOMED: 795807920 Qualifiers: Qualified Codes: I82.509 - Chronic embolism and thrombosis of unspecified deep veins of unspecified lower extremity (5) Schizophrenia Assessment & Plan: stable monitor currently stable psych consulted ICD Codes: F20.9 - Schizophrenia, unspecified SNOMED: 33624445 (6) Noncompliance of patient with renal dialysis Assessment & Plan: noncompliant with HD missed last 3 HD likely due to psych issues/schizophrenia educated on importance of compliance ICD Codes: Z91.15 - Patient's noncompliance with renal dialysis SNOMED: 681108477201722 (7) Anemia in chronic kidney disease, on chronic dialysis Assessment & Plan: stable mcv 99 to 101 continue to monitor no acute bleeding due to esrd on hd nephro following ICD Codes: N18.6 - End stage renal disease; D63.1 - Anemia in chronic kidney disease; Z99.2 - Dependence on renal dialysis SNOMED: 076059021, 725241210, 884616713 Status: stable Assessment/Plan ppx: eliquis diet; renal hd DVT Prophylaxis: SCD, eliquis Code Status: Full Hospital Classification Declaration: Based on this initial evaluation, and depending on the patient's clinical course, I anticipate that this patient will require hospitalization for 2 midnight for HD and close respiratory/hemodynamic monitoring. Disposition: Once the patient is stable to leave the hospital, I anticipate the patient will likely be discharged to the following environment: SNF I spent 40 minutes on this patient's case, and 25 minutes were dedicated to counseling and/or care coordination. Discussed with patient/family, nursing staff, SW/CM regarding clinical status, treatment course, and disposition planning. Time of note may not reflect time of encounter. I have reviewed all imaging, labs and medications with patient Subjective Date patient seen: Oct 30, 2018 Time patient seen: 12:06 Allergies: Coded Allergies: FLUPHENAZINE (Verified Allergy, Unknown, 10/03/18) HALOPERIDOL (Verified Allergy, Unknown, 10/03/18) Subjective f/u esrd on hd, noncompliance, schizophrenia appreciate psych eval patient calms down after prolonged discussions with patient stable today HD per nephrology planned continues to refused HD however agrees to HD after continuously explaining the importance of dialysis patient stable today patient pending SNF placement ROS: 14 point ROS reviewed and negative except per above subjective Objective Last 24 Hour Vital Signs Date Time Temp Pulse Resp B/P (MAP) Pulse Ox O2 Delivery O2 Flow Rate FiO2 10/30/18 11:50 97.6 81 18 136/79 (98) 99 10/30/18 09:31 Room Air 10/30/18 08:29 97.8 79 18 140/80 (100) 99 10/30/18 04:00 98.1 85 19 145/88 (107) 95 10/29/18 21:00 Room Air 10/29/18 20:00 98.7 81 19 137/72 (93) 96 10/29/18 16:00 98.0 72 22 121/57 (78) 99 Intake and Output 10/29/18 10/30/18 18:59 06:59 Intake Total 1020 ml 540 ml Output Total 800 ml 900 ml Balance 220 ml -360 ml Intake Oral 1020 ml 480 ml IV Total 60 ml Output Urine Total 800 ml 900 ml # Voids 2 Laboratory Tests 10/30/18 10:38: Total Protein (PEP) [Pending], Albumin (PEP) [Pending], Globulin (PEP) [Pending] , Albumin/Globulin Ratio [Pending], [id number]-0-Syczvhbfz [Pending], Alpha-2- Globulins [Pending], Beta Globulins [Pending], Beta Gamma Globulin [Pending], PEP Abnormal Protein Bands [Pending], Protein Electrophoresis Interpret [Pending ] Height (Feet): 5 Height (Inches): 7.00 Weight (Pounds): 197 Objective General Appearance: no apparent distress, alert, agitated Lines, tubes and drains: peripheral HEENT: normocephalic, atraumatic, anicteric, mucous membranes moist, PERRL Neck: non-tender, normal alignment, supple, normal inspection Respiratory/Chest: chest wall non-tender, lungs clear, normal breath sounds, no respiratory distress, no accessory muscle use, respiratory distress Cardiovascular/Chest: normal peripheral pulses, normal rate, regular rhythm Abdomen: normal bowel sounds, non tender, soft, no organomegaly, no mass Extremities: normal range of motion, non-tender, normal inspection, no calf tenderness, normal capillary refill, non-pitting Skin Exam: normal pigmentation, warm/dry, cyanotic Neurologic: 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
--- NOTE | 2018-10-30 12:29 | Diagnostic Imaging Report ---
EXAM: XR Chest, 1 View CLINICAL HISTORY: ABD PAIN TECHNIQUE: Frontal view of the chest. COMPARISON: Chest x-ray dated 10/03/18 FINDINGS: Lungs: Mild pulmonary vascular congestion. The lungs are otherwise clear without focal consolidation. Pleural space: Unremarkable. The costophrenic angles are sharp. No visible pneumothorax. Heart: Cardiac silhouette points to the right, unchanged, which may suggest dextrocardia. Mediastinum: Unremarkable. Bones/joints: Unremarkable. Tubes, lines and devices: Right subclavian approach dialysis catheter is stable in position with tip in the SVC/atrial junction region. IMPRESSION: Mild pulmonary vascular congestion.
--- NOTE | 2018-10-30 14:57 | Nephrology Progress Note ---
Assessment/Plan Problem List: (1) ESRD (end stage renal disease) (2) Schizophrenia (3) Anemia in CKD (chronic kidney disease) Assessment - ESRD (end stage renal disease) - Noncompliance of patient with renal dialysis - Anemia of CKD -DVT (deep venous thrombosis) -Schizophrenia / Psychiatric disorder Plan HD 10/28 next 10/31 refuses care periodically Per Psych adjust meds per orders Subjective ROS Limited/Unobtainable: No Objective Objective Last 24 Hour Vital Signs Date Time Temp Pulse Resp B/P (MAP) Pulse Ox O2 Delivery O2 Flow Rate FiO2 10/30/18 11:50 97.6 81 18 136/79 (98) 99 10/30/18 09:31 Room Air 10/30/18 08:29 97.8 79 18 140/80 (100) 99 10/30/18 04:00 98.1 85 19 145/88 (107) 95 10/29/18 21:00 Room Air 10/29/18 20:00 98.7 81 19 137/72 (93) 96 10/29/18 16:00 98.0 72 22 121/57 (78) 99 Intake and Output 10/29/18 10/30/18 19:00 07:00 Intake Total 1020 ml 540 ml Output Total 800 ml 900 ml Balance 220 ml -360 ml Intake Oral 1020 ml 480 ml IV Total 60 ml Output Urine Total 800 ml 900 ml # Voids 2 Laboratory Tests 10/30/18 10:38: Total Protein (PEP) [Pending], Albumin (PEP) [Pending], Globulin (PEP) [Pending] , Albumin/Globulin Ratio [Pending], Tiykg-1-Juurjqbol [Pending], Alpha-2- Globulins [Pending], Beta Globulins [Pending], Beta Gamma Globulin [Pending], PEP Abnormal Protein Bands [Pending], Protein Electrophoresis Interpret [Pending ] Height (Feet): 5 Height (Inches): 7.00 Weight (Pounds): 197 General Appearance: no apparent distress Objective uncooperative Elbert Deng MD Oct 30, 2018 14:57
[2018-10-30 16:10] VITALS: BP 150/93
[2018-10-30 20:00] VITALS: BP 135/74
--- NOTE | 2018-10-30 22:33 | General Progress Note ---
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 (2) Schizophrenia ICD Codes: F20.9 - Schizophrenia, unspecified SNOMED: 80536965 Assessment/Plan depakote risperdal provided ro/st Subjective Neurologic/Psychiatric: Reports: anxiety Allergies: Coded Allergies: FLUPHENAZINE (Verified Allergy, Unknown, 10/03/18) HALOPERIDOL (Verified Allergy, Unknown, 10/03/18) Objective Last 24 Hour Vital Signs Date Time Temp Pulse Resp B/P (MAP) Pulse Ox O2 Delivery O2 Flow Rate FiO2 10/30/18 21:00 Room Air 10/30/18 20:00 98.1 85 16 135/74 (94) 99 10/30/18 16:10 98.0 81 18 150/93 (112) 92 10/30/18 11:50 97.6 81 18 136/79 (98) 99 10/30/18 09:31 Room Air 10/30/18 08:29 97.8 79 18 140/80 (100) 99 10/30/18 04:00 98.1 85 19 145/88 (107) 95 Intake and Output 10/29/18 10/30/18 19:00 07:00 Intake Total 1020 ml 540 ml Output Total 800 ml 900 ml Balance 220 ml -360 ml Intake Oral 1020 ml 480 ml IV Total 60 ml Output Urine Total 800 ml 900 ml # Voids 2 Laboratory Tests 10/30/18 10:38: Total Protein (PEP) [Pending], Albumin (PEP) [Pending], Globulin (PEP) [Pending] , Albumin/Globulin Ratio [Pending], Tyrsc-2-Zatnpbfse [Pending], Alpha-2- Globulins [Pending], Beta Globulins [Pending], Beta Gamma Globulin [Pending], PEP Abnormal Protein Bands [Pending], Protein Electrophoresis Interpret [Pending ] Height (Feet): 5 Height (Inches): 7.00 Weight (Pounds): 197 General Appearance: alert, confused, agitated Panda Zambrano MD Oct 30, 2018 22:33
[2018-10-31] VITALS: BP 130/89
[2018-10-31 04:00] VITALS: BP 158/82
[2018-10-31] MEDS: Valproate Sodium INJ 500 MG in D5W 55 ML IVPB SCH ×3 (05:48→22:10)
[2018-10-31 08:00] VITALS: BP 155/82
[2018-10-31] MEDS: Calcium Acetate 667mg Tab ORAL SCH ×3 (08:46→17:32)
[2018-10-31] MEDS: Eliquis 2.5mg tablet ORAL SCH ×2 (08:47→20:37)
[2018-10-31] MEDS: Docusate 100mg cap ORAL SCH ×3 (08:47→17:32)
--- NOTE | 2018-10-31 11:20 | Nephrology Progress Note ---
Assessment/Plan Problem List: (1) ESRD (end stage renal disease) (2) Schizophrenia (3) Anemia in CKD (chronic kidney disease) Assessment - ESRD (end stage renal disease) - Noncompliance of patient with renal dialysis - Anemia of CKD -DVT (deep venous thrombosis) -Schizophrenia / Psychiatric disorder Plan HD 10/28 next 10/31 - refusing sofar ! refuses care periodically Per Psych adjust meds per orders Subjective ROS Limited/Unobtainable: No Constitutional: Reports: weakness Objective Objective Last 24 Hour Vital Signs Date Time Temp Pulse Resp B/P (MAP) Pulse Ox O2 Delivery O2 Flow Rate FiO2 10/31/18 09:00 Room Air 10/31/18 08:00 97.6 79 18 155/82 (106) 94 10/31/18 04:00 96.8 81 14 158/82 (107) 95 10/31/18 00:00 96.8 70 16 130/89 (103) 93 10/30/18 21:00 Room Air 10/30/18 20:00 98.1 85 16 135/74 (94) 99 10/30/18 16:10 98.0 81 18 150/93 (112) 92 10/30/18 11:50 97.6 81 18 136/79 (98) 99 Intake and Output 10/30/18 10/31/18 18:59 06:59 Intake Total 1410 ml Output Total 500 ml Balance 1410 ml -500 ml Intake Oral 1410 ml Output Urine Total 500 ml # Voids 6 3 # Bowel Movements 1 Height (Feet): 5 Height (Inches): 7.00 Weight (Pounds): 198 General Appearance: no apparent distress, agitated - at times Objective uncooperative Elbert Deng MD Oct 31, 2018 11:20
--- NOTE | 2018-10-31 11:40 | General Progress Note ---
Assessment/Plan Problem List: (1) Fluid overload ICD Codes: E87.70 - Fluid overload, unspecified SNOMED: 05537153 (2) Hyperkalemia ICD Codes: E87.5 - Hyperkalemia SNOMED: 55368444 Status: stable Assessment/Plan (1) Fluid overload ICD Codes: E87.70 - Fluid overload, unspecified SNOMED: 07564175 due to noncompliance with HD nephro consulted improving (2) Hyperkalemia ICD Codes: E87.5 - Hyperkalemia SNOMED: 84454481 resolved, cont to monitor with daily labs med noncompliance HD per nephro cont to monitor K (1) Psychiatric disorder Assessment & Plan: schizophrenia will resume meds valproic depakote ICD Codes: F99 - Mental disorder, not otherwise specified SNOMED: 42130563, 290282203 (2) ESRD (end stage renal disease) Assessment & Plan: has been refusing last 3 HD session cont hd per nephro ICD Codes: N18.6 - End stage renal disease SNOMED: 45500669 (4) DVT (deep venous thrombosis) Assessment & Plan: resume home eliquis ICD Codes: I82.409 - Acute embolism and thrombosis of unspecified deep veins of unspecified lower extremity SNOMED: 466551240 Qualifiers: Qualified Codes: I82.509 - Chronic embolism and thrombosis of unspecified deep veins of unspecified lower extremity (5) Schizophrenia Assessment & Plan: stable monitor currently stable psych consulted ICD Codes: F20.9 - Schizophrenia, unspecified SNOMED: 84145151 (6) Noncompliance of patient with renal dialysis Assessment & Plan: noncompliant with HD missed last 3 HD likely due to psych issues/schizophrenia educated on importance of compliance ICD Codes: Z91.15 - Patient's noncompliance with renal dialysis SNOMED: 720556344318700 (7) Anemia in chronic kidney disease, on chronic dialysis Assessment & Plan: stable mcv 99 to 101 continue to monitor no acute bleeding due to esrd on hd nephro following ICD Codes: N18.6 - End stage renal disease; D63.1 - Anemia in chronic kidney disease; Z99.2 - Dependence on renal dialysis SNOMED: 026172018, 150287443, 340598211 Status: stable Assessment/Plan ppx: eliquis diet; renal hd DVT Prophylaxis: SCD, eliquis Code Status: Full Hospital Classification Declaration: Based on this initial evaluation, and depending on the patient's clinical course, I anticipate that this patient will require hospitalization for 2 midnight for HD and close respiratory/hemodynamic monitoring. Disposition: Once the patient is stable to leave the hospital, I anticipate the patient will likely be discharged to the following environment: SNF I spent 40 minutes on this patient's case, and 25 minutes were dedicated to counseling and/or care coordination. Discussed with patient/family, nursing staff, SW/CM regarding clinical status, treatment course, and disposition planning. Time of note may not reflect time of encounter. I have reviewed all imaging, labs and medications with patient Subjective Date patient seen: Oct 31, 2018 Time patient seen: 11:39 Allergies: Coded Allergies: FLUPHENAZINE (Verified Allergy, Unknown, 10/03/18) HALOPERIDOL (Verified Allergy, Unknown, 10/03/18) Subjective f/u esrd on hd, noncompliance, schizophrenia appreciate psych eval more calm currently HD per nephrology gets agitated at times however calms down with long discussion stable today patient pending SNF placement ROS: 14 point ROS reviewed and negative except per above subjective Objective Last 24 Hour Vital Signs Date Time Temp Pulse Resp B/P (MAP) Pulse Ox O2 Delivery O2 Flow Rate FiO2 10/31/18 09:00 Room Air 10/31/18 08:00 97.6 79 18 155/82 (106) 94 10/31/18 04:00 96.8 81 14 158/82 (107) 95 10/31/18 00:00 96.8 70 16 130/89 (103) 93 10/30/18 21:00 Room Air 10/30/18 20:00 98.1 85 16 135/74 (94) 99 10/30/18 16:10 98.0 81 18 150/93 (112) 92 10/30/18 11:50 97.6 81 18 136/79 (98) 99 Intake and Output 10/30/18 10/31/18 18:59 06:59 Intake Total 1410 ml Output Total 500 ml Balance 1410 ml -500 ml Intake Oral 1410 ml Output Urine Total 500 ml # Voids 6 3 # Bowel Movements 1 Height (Feet): 5 Height (Inches): 7.00 Weight (Pounds): 198 Objective General Appearance: no apparent distress, alert, agitated Lines, tubes and drains: peripheral HEENT: normocephalic, atraumatic, anicteric, mucous membranes moist, PERRL Neck: non-tender, normal alignment, supple, normal inspection Respiratory/Chest: chest wall non-tender, lungs clear, normal breath sounds, no respiratory distress, no accessory muscle use, respiratory distress Cardiovascular/Chest: normal peripheral pulses, normal rate, regular rhythm Abdomen: normal bowel sounds, non tender, soft, no organomegaly, no mass Extremities: normal range of motion, non-tender, normal inspection, no calf tenderness, normal capillary refill, non-pitting Skin Exam: normal pigmentation, warm/dry, cyanotic 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
[2018-10-31 12:00] VITALS: BP 141/80
--- NOTE | 2018-10-31 14:19 | Cardiology Report ---
APPROVED REPORT EKG Measurement Heart [id number] Normal sinus rhythm Nonspecific T wave abnormality Abnormal ECG
--- NOTE | 2018-10-31 14:24 | General Progress Note ---
Assessment/Plan Assessment/Plan Assessment and Recs: # Anemia of chronic disease due to underlying chronic medical issues, multifactorial --> Anemia w/u has been reviewed. Ferritin at 741 --> No evidence of hemolysis is noted, peripheral smear has been reviewed. --> Hgb goal >7. Transfuse prn. --> Pt received iv iron on prior admission, now ferritin is 704 --> Cont po folic acid daily --> Cont Procrit 3x a week per nephro but has refused before # DVT. Pt is on eliquis. --> has not worsened --> continue on eliquis # ESRD. On HD --> Nephrology is following. Appreciate recs. --> Pt is noncompliant with HD # Psych disorder. Psych to follow. # Hyperkalemia. K 5.1 at admission --> Currently at 5.0, wnl # Noncompliance significant history --> psych eval Subjective Constitutional: Denies: no symptoms, chills, diaphoresis, fever, malaise, weakness, other HEENT: Denies: no symptoms, eye pain, blurred vision, tearing, double vision, ear pain, ear discharge, nose pain, nose congestion, throat pain, throat swelling, mouth pain, mouth swelling, other Cardiovascular: Denies: no symptoms, chest pain, edema, irregular heart rate, lightheadedness, palpitations, syncope, other Respiratory: Denies: no symptoms, cough, orthopnea, shortness of breath, SOB with excertion, SOB at rest, sputum, stridor, wheezing, other Gastrointestinal/Abdominal: Denies: no symptoms, abdomen distended, abdominal pain, black stools, tarry stools, blood in stool, constipated, diarrhea, difficulty swallowing, nausea, poor appetite, poor fluid intake, rectal bleeding , vomiting, other Genitourinary: Denies: no symptoms, burning, discharge, frequency, flank pain, hematuria, incontinence, pain, urgency, other Neurologic/Psychiatric: Denies: no symptoms, anxiety, depressed, emotional problems, headache, numbness, paresthesia, pre-existing deficit, seizure, tingling, tremors, weakness, other Endocrine: Denies: no symptoms, excessive sweating, flushing, intolerance to cold, intolerance to heat, increased hunger, increased thirst, increased urine, unexplained weight gain, unexplained weight loss, other Allergies: Coded Allergies: FLUPHENAZINE (Verified Allergy, Unknown, 10/03/18) HALOPERIDOL (Verified Allergy, Unknown, 10/03/18) Subjective 10/31: has been refusing dialysis with vip, rn is aware Objective Last 24 Hour Vital Signs Date Time Temp Pulse Resp B/P (MAP) Pulse Ox O2 Delivery O2 Flow Rate FiO2 10/31/18 09:00 Room Air 10/31/18 08:00 97.6 79 18 155/82 (106) 94 10/31/18 04:00 96.8 81 14 158/82 (107) 95 10/31/18 00:00 96.8 70 16 130/89 (103) 93 10/30/18 21:00 Room Air 10/30/18 20:00 98.1 85 16 135/74 (94) 99 10/30/18 16:10 98.0 81 18 150/93 (112) 92 Intake and Output 10/30/18 10/31/18 18:59 06:59 Intake Total 1410 ml Output Total 500 ml Balance 1410 ml -500 ml Intake Oral 1410 ml Output Urine Total 500 ml # Voids 6 3 # Bowel Movements 1 Height (Feet): 5 Height (Inches): 7.00 Weight (Pounds): 198 General Appearance: no apparent distress EENT: normal ENT inspection Neck: non-tender Cardiovascular: regular rhythm Respiratory/Chest: normal breath sounds Abdomen: no organomegaly Extremities: normal inspection Edema: 1+ Leg (L), 1+ Leg (R) Neurologic: alert Ulices Lanza MD Oct 31, 2018 14:24
--- NOTE | 2018-10-31 14:27 | General Progress Note ---
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 (2) Schizophrenia ICD Codes: F20.9 - Schizophrenia, unspecified SNOMED: 07894663 Status: unchanged Assessment/Plan Depakote Risperdal increase to 1mg po bid provided ro/st Subjective Neurologic/Psychiatric: Reports: anxiety, depressed, emotional problems Allergies: Coded Allergies: FLUPHENAZINE (Verified Allergy, Unknown, 10/03/18) HALOPERIDOL (Verified Allergy, Unknown, 10/03/18) Subjective the pt uncooperative and agitated at times Objective Last 24 Hour Vital Signs Date Time Temp Pulse Resp B/P (MAP) Pulse Ox O2 Delivery O2 Flow Rate FiO2 10/31/18 09:00 Room Air 10/31/18 08:00 97.6 79 18 155/82 (106) 94 10/31/18 04:00 96.8 81 14 158/82 (107) 95 10/31/18 00:00 96.8 70 16 130/89 (103) 93 10/30/18 21:00 Room Air 10/30/18 20:00 98.1 85 16 135/74 (94) 99 10/30/18 16:10 98.0 81 18 150/93 (112) 92 Intake and Output 10/30/18 10/31/18 18:59 06:59 Intake Total 1410 ml Output Total 500 ml Balance 1410 ml -500 ml Intake Oral 1410 ml Output Urine Total 500 ml # Voids 6 3 # Bowel Movements 1 Height (Feet): 5 Height (Inches): 7.00 Weight (Pounds): 198 General Appearance: alert, moderate distress, agitated Panda Zambrano MD Oct 31, 2018 14:27
[2018-10-31 16:00] VITALS: BP 131/76
[2018-10-31 20:00] VITALS: BP 140/82
[2018-10-31] MEDS: Dyna-Hex 2% Top Sol 2oz TOPIC SCH (20:37)
[2018-11-01] VITALS: BP 142/86
[2018-11-01 04:00] VITALS: BP 129/85
[2018-11-01] MEDS: Valproate Sodium INJ 500 MG in D5W 55 ML IVPB SCH ×3 (05:13→21:45)
[2018-11-01 07:15] LABS: EOSINOPHILS % (AUTO) 3.9 % (0.0-3.0); HEMATOCRIT 26.1 % (42.0-52.0); HEMOGLOBIN 8.7 G/DL (14.2-18.0); LYMPHOCYTES % (AUTO) 36.7 % (20.0-45.0); MEAN CORPUSCULAR VOLUME 100 FL (80-99); MONOCYTES % (AUTO) 9.9 % (1.0-10.0); NEUTROPHILS % (AUTO) 48.6 % (45.0-75.0); PLATELET COUNT 205 K/UL (150-450); RED BLOOD COUNT 2.61 M/UL (4.70-6.10); RED CELL DISTRIBUTION WIDTH 12.2 % (11.6-14.8); WHITE BLOOD COUNT 6.1 K/UL (4.8-10.8)
[2018-11-01 07:40] LABS: ALANINE AMINOTRANSFERASE 19 U/L (12-78); ALBUMIN 2.8 G/DL (3.4-5.0); ALBUMIN/GLOBULIN RATIO 0.6 (1.0-2.7); ALKALINE PHOSPHATASE 64 U/L (46-116); ANION GAP 13 mmol/L (5-15); ASPARTATE AMINO TRANSFERASE 12 U/L (15-37); BILIRUBIN,TOTAL 0.3 MG/DL (0.2-1.0); BLOOD UREA NITROGEN 85 mg/dL (7-18); CARBON DIOXIDE 20 MMOL/L (21-32); CHLORIDE 106 MMOL/L (98-107); CREATININE 6.8 MG/DL (0.55-1.30); PHOSPHORUS 4.5 MG/DL (2.5-4.9); SODIUM 139 MMOL/L (136-145)
--- NOTE | 2018-11-01 07:55 | General Progress Note ---
Assessment/Plan Problem List: (1) Fluid overload ICD Codes: E87.70 - Fluid overload, unspecified SNOMED: 78896053 (2) Hyperkalemia ICD Codes: E87.5 - Hyperkalemia SNOMED: 61605507 Assessment/Plan (1) Fluid overload ICD Codes: E87.70 - Fluid overload, unspecified SNOMED: 49381856 due to noncompliance with HD nephro consulted improving (2) Hyperkalemia ICD Codes: E87.5 - Hyperkalemia SNOMED: 53925603 K high currently at 5 pt refused HD yesterday (1) Psychiatric disorder Assessment & Plan: schizophrenia will resume meds valproic depakote ICD Codes: F99 - Mental disorder, not otherwise specified SNOMED: 23286142, 904242860 (2) ESRD (end stage renal disease) Assessment & Plan: continuously refused HD cont hd per nephro ICD Codes: N18.6 - End stage renal disease SNOMED: 77422051 (4) DVT (deep venous thrombosis) Assessment & Plan: resume home eliquis ICD Codes: I82.409 - Acute embolism and thrombosis of unspecified deep veins of unspecified lower extremity SNOMED: 105294213 Qualifiers: Qualified Codes: I82.509 - Chronic embolism and thrombosis of unspecified deep veins of unspecified lower extremity (5) Schizophrenia Assessment & Plan: stable monitor currently stable psych consulted ICD Codes: F20.9 - Schizophrenia, unspecified SNOMED: 32703612 (6) Noncompliance of patient with renal dialysis Assessment & Plan: noncompliant with HD missed last 3 HD likely due to psych issues/schizophrenia educated on importance of compliance ICD Codes: Z91.15 - Patient's noncompliance with renal dialysis SNOMED: 875569014353526 (7) Anemia in chronic kidney disease, on chronic dialysis Assessment & Plan: stable mcv 99 to 101 continue to monitor no acute bleeding due to esrd on hd nephro following ICD Codes: N18.6 - End stage renal disease; D63.1 - Anemia in chronic kidney disease; Z99.2 - Dependence on renal dialysis SNOMED: 838780789, 754283196, 050607215 Status: stable Assessment/Plan ppx: eliquis diet; renal hd DVT Prophylaxis: SCD, eliquis Code Status: Full Hospital Classification Declaration: Based on this initial evaluation, and depending on the patient's clinical course, I anticipate that this patient will require hospitalization for 2 midnight for HD and close respiratory/hemodynamic monitoring. Disposition: Once the patient is stable to leave the hospital, I anticipate the patient will likely be discharged to the following environment: SNF I spent 49 minutes on this patient's case, and 25 minutes were dedicated to counseling and/or care coordination. Discussed with patient/family, nursing staff, SW/CM regarding clinical status, treatment course, and disposition planning. Time of note may not reflect time of encounter. I have reviewed all imaging, labs and medications with patient Subjective Date patient seen: Nov 01, 2018 Time patient seen: 07:54 Allergies: Coded Allergies: FLUPHENAZINE (Verified Allergy, Unknown, 10/03/18) HALOPERIDOL (Verified Allergy, Unknown, 10/03/18) Subjective f/u esrd on hd, noncompliance, schizophrenia appreciate psych eval more calm currently HD per nephrology gets agitated at times however calms down with long discussion refused HD yesterday snf pending ROS: 14 point ROS reviewed and negative except per above subjective Objective Last 24 Hour Vital Signs Date Time Temp Pulse Resp B/P (MAP) Pulse Ox O2 Delivery O2 Flow Rate FiO2 11/01/18 04:00 97.9 92 20 129/85 (100) 100 11/01/18 00:00 97.9 78 16 142/86 (104) 98 10/31/18 21:00 Room Air 10/31/18 20:00 98.3 75 20 140/82 (101) 94 10/31/18 16:00 97.9 76 19 131/76 (94) 98 10/31/18 12:00 97.9 83 17 141/80 (100) 96 10/31/18 09:00 Room Air 10/31/18 08:00 97.6 79 18 155/82 (106) 94 Intake and Output 10/31/18 11/01/18 19:00 07:00 Intake Total 600 ml Output Total 900 ml Balance 600 ml -900 ml Intake Oral 600 ml Output Urine Total 900 ml # Voids 6 # Bowel Movements 1 Laboratory Tests 11/01/18 05:40: White Blood Count 6.1, Red Blood Count 2.61L, Hemoglobin 8.7L, Hematocrit 26.1L , Mean Corpuscular Volume 100H, Mean Corpuscular Hemoglobin 33.4H, Mean Corpuscular Hemoglobin Concent 33.5, Red Cell Distribution Width 12.2, Platelet Count 205, Mean Platelet Volume 6.2L, Neutrophils (%) (Auto) 48.6, Lymphocytes ( %) (Auto) 36.7, Monocytes (%) (Auto) 9.9, Eosinophils (%) (Auto) 3.9H, Basophils (%) (Auto) 1.0, Sodium Level 139, Potassium Level 5.0, Chloride Level 106, Carbon Dioxide Level 20L, Anion Gap 13, Blood Urea Nitrogen 85H, Creatinine 6.8H, Estimat Glomerular Filtration Rate 10.1, Glucose Level 106, Uric Acid 8.7H, Calcium Level 9.0, Phosphorus Level 4.5, Magnesium Level 1.9, Total Bilirubin 0.3, Aspartate Amino Transf (AST/SGOT) 12L, Alanine Aminotransferase (ALT/SGPT) 19, Alkaline Phosphatase 64, C-Reactive Protein, Quantitative 1.0H, Pro-B-Type Natriuretic Peptide 1622H, Total Protein 7.6, Albumin 2.8L, Globulin 4.8, Albumin/Globulin Ratio 0.6L Height (Feet): 5 Height (Inches): 7.00 Weight (Pounds): 195 Objective General Appearance: no apparent distress, alert, agitated Lines, tubes and drains: peripheral HEENT: normocephalic, atraumatic, anicteric, mucous membranes moist, PERRL Neck: non-tender, normal alignment, supple, normal inspection Respiratory/Chest: chest wall non-tender, lungs clear, normal breath sounds, no respiratory distress, no accessory muscle use, respiratory distress Cardiovascular/Chest: normal peripheral pulses, normal rate, regular rhythm Abdomen: normal bowel sounds, non tender, soft, no organomegaly, no mass Extremities: normal range of motion, non-tender, normal inspection, no calf tenderness, normal capillary refill, non-pitting Skin Exam: normal pigmentation, warm/dry, cyanotic 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
[2018-11-01 08:00] VITALS: BP 150/84
[2018-11-01] MEDS: Calcium Acetate 667mg Tab ORAL SCH ×3 (09:14→17:23)
[2018-11-01] MEDS: Eliquis 2.5mg tablet ORAL SCH ×2 (09:14→21:01)
[2018-11-01] MEDS: Docusate 100mg cap ORAL SCH ×3 (09:14→17:24)
[2018-11-01 11:48] VITALS: BP 155/89
--- NOTE | 2018-11-01 12:56 | Nephrology Progress Note ---
Assessment/Plan Problem List: (1) ESRD (end stage renal disease) (2) Schizophrenia (3) Anemia in CKD (chronic kidney disease) Assessment - ESRD (end stage renal disease) - Noncompliance of patient with renal dialysis - Anemia of CKD -DVT (deep venous thrombosis) -Schizophrenia / Psychiatric disorder Plan HD 10/28 next 10/31 - refusing sofar ! refuses care periodically Per Psych adjust meds per orders Subjective ROS Limited/Unobtainable: No Objective Objective Last 24 Hour Vital Signs Date Time Temp Pulse Resp B/P (MAP) Pulse Ox O2 Delivery O2 Flow Rate FiO2 11/01/18 11:48 97.7 68 20 155/89 (111) 97 11/01/18 09:00 Room Air 11/01/18 08:00 97.1 78 19 150/84 (106) 97 11/01/18 04:00 97.9 92 20 129/85 (100) 100 11/01/18 00:00 97.9 78 16 142/86 (104) 98 10/31/18 21:00 Room Air 10/31/18 20:00 98.3 75 20 140/82 (101) 94 10/31/18 16:00 97.9 76 19 131/76 (94) 98 Intake and Output 10/31/18 11/01/18 18:59 06:59 Intake Total 600 ml Output Total 900 ml Balance 600 ml -900 ml Intake Oral 600 ml Output Urine Total 900 ml # Voids 6 # Bowel Movements 1 Laboratory Tests 11/01/18 05:40: White Blood Count 6.1, Red Blood Count 2.61L, Hemoglobin 8.7L, Hematocrit 26.1L , Mean Corpuscular Volume 100H, Mean Corpuscular Hemoglobin 33.4H, Mean Corpuscular Hemoglobin Concent 33.5, Red Cell Distribution Width 12.2, Platelet Count 205, Mean Platelet Volume 6.2L, Neutrophils (%) (Auto) 48.6, Lymphocytes ( %) (Auto) 36.7, Monocytes (%) (Auto) 9.9, Eosinophils (%) (Auto) 3.9H, Basophils (%) (Auto) 1.0, Sodium Level 139, Potassium Level 5.0, Chloride Level 106, Carbon Dioxide Level 20L, Anion Gap 13, Blood Urea Nitrogen 85H, Creatinine 6.8H, Estimat Glomerular Filtration Rate 10.1, Glucose Level 106, Uric Acid 8.7H, Calcium Level 9.0, Phosphorus Level 4.5, Magnesium Level 1.9, Total Bilirubin 0.3, Aspartate Amino Transf (AST/SGOT) 12L, Alanine Aminotransferase (ALT/SGPT) 19, Alkaline Phosphatase 64, C-Reactive Protein, Quantitative 1.0H, Pro-B-Type Natriuretic Peptide 1622H, Total Protein 7.6, Albumin 2.8L, Globulin 4.8, Albumin/Globulin Ratio 0.6L Height (Feet): 5 Height (Inches): 7.00 Weight (Pounds): 195 General Appearance: no apparent distress, other - uncoaporative Objective uncooperative Elbert Deng MD Nov 01, 2018 12:56
[2018-11-01 16:00] VITALS: BP 155/76
--- NOTE | 2018-11-01 16:19 | General Progress Note ---
Assessment/Plan Assessment/Plan Assessment and Recs: # Anemia of chronic disease due to underlying chronic medical issues, multifactorial --> Anemia w/u has been reviewed. Ferritin at 741 --> No evidence of hemolysis is noted, peripheral smear has been reviewed. --> Hgb goal >7. Transfuse prn. --> Pt received iv iron on prior admission, now ferritin is 704 --> Cont po folic acid daily --> Cont Procrit 3x a week per nephro but has refused before --> trend hgb 7.4-->7.7-->7.9-->8.7 # DVT. Pt is on eliquis. --> has not worsened --> continue on eliquis # ESRD. On HD --> Nephrology is following. Appreciate recs. --> Pt is noncompliant with HD # Psych disorder. Psych to follow. # Hyperkalemia. K 5.1 at admission --> Currently at 5.0, wnl # Noncompliance significant history --> psych eval Subjective Constitutional: Denies: no symptoms, chills, diaphoresis, fever, malaise, weakness, other HEENT: Denies: no symptoms, eye pain, blurred vision, tearing, double vision, ear pain, ear discharge, nose pain, nose congestion, throat pain, throat swelling, mouth pain, mouth swelling, other Cardiovascular: Denies: no symptoms, chest pain, edema, irregular heart rate, lightheadedness, palpitations, syncope, other Respiratory: Denies: no symptoms, cough, orthopnea, shortness of breath, SOB with excertion, SOB at rest, sputum, stridor, wheezing, other Gastrointestinal/Abdominal: Denies: no symptoms, abdomen distended, abdominal pain, black stools, tarry stools, blood in stool, constipated, diarrhea, difficulty swallowing, nausea, poor appetite, poor fluid intake, rectal bleeding , vomiting, other Genitourinary: Denies: no symptoms, burning, discharge, frequency, flank pain, hematuria, incontinence, pain, urgency, other Neurologic/Psychiatric: Denies: no symptoms, anxiety, depressed, emotional problems, headache, numbness, paresthesia, pre-existing deficit, seizure, tingling, tremors, weakness, other Hematologic/Lymphatic: Denies: no symptoms, anemia, easy bleeding, easy bruising, other Allergies: Coded Allergies: FLUPHENAZINE (Verified Allergy, Unknown, 10/03/18) HALOPERIDOL (Verified Allergy, Unknown, 10/03/18) Subjective 10/31: has been refusing dialysis with vip, rn is aware 12.25L again altered this am, refusing HD, renal aware Objective Last 24 Hour Vital Signs Date Time Temp Pulse Resp B/P (MAP) Pulse Ox O2 Delivery O2 Flow Rate FiO2 11/01/18 11:48 97.7 68 20 155/89 (111) 97 11/01/18 09:00 Room Air 11/01/18 08:00 97.1 78 19 150/84 (106) 97 11/01/18 04:00 97.9 92 20 129/85 (100) 100 11/01/18 00:00 97.9 78 16 142/86 (104) 98 10/31/18 21:00 Room Air 10/31/18 20:00 98.3 75 20 140/82 (101) 94 Intake and Output 10/31/18 11/01/18 18:59 06:59 Intake Total 600 ml Output Total 900 ml Balance 600 ml -900 ml Intake Oral 600 ml Output Urine Total 900 ml # Voids 6 # Bowel Movements 1 Laboratory Tests 11/01/18 05:40: White Blood Count 6.1, Red Blood Count 2.61L, Hemoglobin 8.7L, Hematocrit 26.1L , Mean Corpuscular Volume 100H, Mean Corpuscular Hemoglobin 33.4H, Mean Corpuscular Hemoglobin Concent 33.5, Red Cell Distribution Width 12.2, Platelet Count 205, Mean Platelet Volume 6.2L, Neutrophils (%) (Auto) 48.6, Lymphocytes ( %) (Auto) 36.7, Monocytes (%) (Auto) 9.9, Eosinophils (%) (Auto) 3.9H, Basophils (%) (Auto) 1.0, Sodium Level 139, Potassium Level 5.0, Chloride Level 106, Carbon Dioxide Level 20L, Anion Gap 13, Blood Urea Nitrogen 85H, Creatinine 6.8H, Estimat Glomerular Filtration Rate 10.1, Glucose Level 106, Uric Acid 8.7H, Calcium Level 9.0, Phosphorus Level 4.5, Magnesium Level 1.9, Total Bilirubin 0.3, Aspartate Amino Transf (AST/SGOT) 12L, Alanine Aminotransferase (ALT/SGPT) 19, Alkaline Phosphatase 64, C-Reactive Protein, Quantitative 1.0H, Pro-B-Type Natriuretic Peptide 1622H, Total Protein 7.6, Albumin 2.8L, Globulin 4.8, Albumin/Globulin Ratio 0.6L Height (Feet): 5 Height (Inches): 7.00 Weight (Pounds): 195 General Appearance: no apparent distress EENT: TMs normal Neck: supple Cardiovascular: regular rhythm Respiratory/Chest: lungs clear Abdomen: non tender Extremities: non-tender Edema: 1+ Leg (L), 1+ Leg (R) Neurologic: alert Skin: normal pigmentation Ulices Lanza MD Nov 01, 2018 16:18
[2018-11-01 20:00] VITALS: BP 154/99
[2018-11-01] MEDS: Dyna-Hex 2% Top Sol 2oz TOPIC SCH (21:01)
[2018-11-02] VITALS: BP 159/84
[2018-11-02 04:00] VITALS: BP 152/83
[2018-11-02] MEDS: Valproate Sodium INJ 500 MG in D5W 55 ML IVPB SCH (05:10)
--- NOTE | 2018-11-02 07:39 | General Progress Note ---
Assessment/Plan Problem List: (1) Fluid overload ICD Codes: E87.70 - Fluid overload, unspecified SNOMED: 58025458 (2) Hyperkalemia ICD Codes: E87.5 - Hyperkalemia SNOMED: 27664290 Status: stable Assessment/Plan (1) Fluid overload ICD Codes: E87.70 - Fluid overload, unspecified SNOMED: 76414254 due to noncompliance with HD nephro consulted improving (2) Hyperkalemia ICD Codes: E87.5 - Hyperkalemia SNOMED: 07031100 K 5 yesterday, pending AM labs continues to refuse HD (1) Psychiatric disorder Assessment & Plan: schizophrenia will resume meds valproic depakote ICD Codes: F99 - Mental disorder, not otherwise specified SNOMED: 88709367, 859159459 (2) ESRD (end stage renal disease) Assessment & Plan: continuously refused HD cont hd per nephro ICD Codes: N18.6 - End stage renal disease SNOMED: 86783551 (4) DVT (deep venous thrombosis) Assessment & Plan: resume home eliquis ICD Codes: I82.409 - Acute embolism and thrombosis of unspecified deep veins of unspecified lower extremity SNOMED: 280428399 Qualifiers: Qualified Codes: I82.509 - Chronic embolism and thrombosis of unspecified deep veins of unspecified lower extremity (5) Schizophrenia Assessment & Plan: stable monitor currently stable psych consulted ICD Codes: F20.9 - Schizophrenia, unspecified SNOMED: 63153839 (6) Noncompliance of patient with renal dialysis Assessment & Plan: noncompliant with HD missed last 3 HD likely due to psych issues/schizophrenia educated on importance of compliance ICD Codes: Z91.15 - Patient's noncompliance with renal dialysis SNOMED: 772103018487128 (7) Anemia in chronic kidney disease, on chronic dialysis Assessment & Plan: stable mcv 99 to 101 continue to monitor no acute bleeding due to esrd on hd nephro following ICD Codes: N18.6 - End stage renal disease; D63.1 - Anemia in chronic kidney disease; Z99.2 - Dependence on renal dialysis SNOMED: 653896258, 841808961, 601671925 Status: stable Assessment/Plan ppx: eliquis diet; renal hd DVT Prophylaxis: SCD, eliquis Code Status: Full Hospital Classification Declaration: Based on this initial evaluation, and depending on the patient's clinical course, I anticipate that this patient will require hospitalization for 2 midnight for HD and close respiratory/hemodynamic monitoring. Disposition: Once the patient is stable to leave the hospital, I anticipate the patient will likely be discharged to the following environment: SNF I spent 42 minutes on this patient's case, and 25 minutes were dedicated to counseling and/or care coordination. Discussed with patient/family, nursing staff, SW/CM regarding clinical status, treatment course, and disposition planning. Time of note may not reflect time of encounter. I have reviewed all imaging, labs and medications with patient Subjective Date patient seen: Nov 02, 2018 Time patient seen: 07:37 Allergies: Coded Allergies: FLUPHENAZINE (Verified Allergy, Unknown, 10/03/18) HALOPERIDOL (Verified Allergy, Unknown, 10/03/18) Subjective f/u esrd on hd, noncompliance, schizophrenia appreciate psych eval more calm currently HD per nephrology gets agitated at times however calms down with long discussion snf pending ROS: 14 point ROS reviewed and negative except per above subjective Objective Last 24 Hour Vital Signs Date Time Temp Pulse Resp B/P (MAP) Pulse Ox O2 Delivery O2 Flow Rate FiO2 11/02/18 04:00 97.9 87 19 152/83 (106) 97 11/02/18 00:00 99.0 95 19 159/84 (109) 95 11/01/18 21:00 Room Air 11/01/18 20:00 98.1 79 19 154/99 (117) 98 11/01/18 16:00 97.1 61 19 155/76 (102) 97 11/01/18 11:48 97.7 68 20 155/89 (111) 97 11/01/18 09:00 Room Air 11/01/18 08:00 97.1 78 19 150/84 (106) 97 Intake and Output 11/01/18 11/02/18 19:00 07:00 Intake Total 720 ml 1000 ml Output Total 1300 ml Balance -580 ml 1000 ml Intake Oral 720 ml 1000 ml Output Urine Total 1300 ml # Voids 5 3 Height (Feet): 5 Height (Inches): 7.00 Weight (Pounds): 194 Objective General Appearance: no apparent distress, alert, agitated Lines, tubes and drains: peripheral HEENT: normocephalic, atraumatic, anicteric, mucous membranes moist, PERRL Neck: non-tender, normal alignment, supple, normal inspection Respiratory/Chest: chest wall non-tender, lungs clear, normal breath sounds, no respiratory distress, no accessory muscle use, respiratory distress Cardiovascular/Chest: normal peripheral pulses, normal rate, regular rhythm Abdomen: normal bowel sounds, non tender, soft, no organomegaly, no mass Extremities: normal range of motion, non-tender, normal inspection, no calf tenderness, normal capillary refill, non-pitting Skin Exam: normal pigmentation, warm/dry, cyanotic Neurologic: inspector process 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 normal, no motor/sensory deficits, alert, oriented x 3, responsive, normal mood/affect Aleshia Shaffer MD Nov 02, 2018 07:39
[2018-11-02 08:00] VITALS: BP 147/90
[2018-11-02] MEDS: Eliquis 2.5mg tablet ORAL SCH ×2 (08:13→21:41)
[2018-11-02] MEDS: Calcium Acetate 667mg Tab ORAL SCH ×3 (08:14→17:27)
[2018-11-02] MEDS: Docusate 100mg cap ORAL SCH ×3 (08:14→17:27)
[2018-11-02 10:38] LABS: EOSINOPHILS % (AUTO) 3.6 % (0.0-3.0); HEMATOCRIT 26.8 % (42.0-52.0); HEMOGLOBIN 8.9 G/DL (14.2-18.0); LYMPHOCYTES % (AUTO) 32.4 % (20.0-45.0); MEAN CORPUSCULAR VOLUME 100 FL (80-99); MONOCYTES % (AUTO) 12.1 % (1.0-10.0); NEUTROPHILS % (AUTO) 50.8 % (45.0-75.0); PLATELET COUNT 206 K/UL (150-450); RED BLOOD COUNT 2.68 M/UL (4.70-6.10); WHITE BLOOD COUNT 5.4 K/UL (4.8-10.8)
[2018-11-02 10:53] LABS: ANION GAP 12 mmol/L (5-15); BLOOD UREA NITROGEN 94 mg/dL (7-18); CARBON DIOXIDE 22 MMOL/L (21-32); CHLORIDE 107 MMOL/L (98-107); CREATININE 6.5 MG/DL (0.55-1.30); POTASSIUM 4.9 MMOL/L (3.5-5.1); SODIUM 140 MMOL/L (136-145)
[2018-11-02 12:00] VITALS: BP 149/98
--- NOTE | 2018-11-02 12:16 | Nephrology Progress Note ---
Assessment/Plan Problem List: (1) ESRD (end stage renal disease) (2) Schizophrenia (3) Anemia in CKD (chronic kidney disease) Assessment - ESRD (end stage renal disease) - Noncompliance of patient with renal dialysis - Anemia of CKD -DVT (deep venous thrombosis) -Schizophrenia / Psychiatric disorder Plan HD 10/28 next 10/31 - refusing sofar ! add flomax refuses care periodically Per Psych adjust meds per orders Subjective ROS Limited/Unobtainable: No Objective Objective Last 24 Hour Vital Signs Date Time Temp Pulse Resp B/P (MAP) Pulse Ox O2 Delivery O2 Flow Rate FiO2 11/02/18 09:00 Room Air 11/02/18 08:00 97.7 83 18 147/90 (109) 96 11/02/18 04:00 97.9 87 19 152/83 (106) 97 11/02/18 00:00 99.0 95 19 159/84 (109) 95 11/01/18 21:00 Room Air 11/01/18 20:00 98.1 79 19 154/99 (117) 98 11/01/18 16:00 97.1 61 19 155/76 (102) 97 Intake and Output 11/01/18 11/02/18 19:00 07:00 Intake Total 720 ml 1000 ml Output Total 1300 ml Balance -580 ml 1000 ml Intake Oral 720 ml 1000 ml Output Urine Total 1300 ml # Voids 5 3 Laboratory Tests 11/02/18 09:51: White Blood Count 5.4, Red Blood Count 2.68L, Hemoglobin 8.9L, Hematocrit 26.8L , Mean Corpuscular Volume 100H, Mean Corpuscular Hemoglobin 33.0H, Mean Corpuscular Hemoglobin Concent 33.0, Red Cell Distribution Width 12.0, Platelet Count 206, Mean Platelet Volume 6.3L, Neutrophils (%) (Auto) 50.8, Lymphocytes ( %) (Auto) 32.4, Monocytes (%) (Auto) 12.1H, Eosinophils (%) (Auto) 3.6H, Basophils (%) (Auto) 1.0, Sodium Level 140, Potassium Level 4.9, Chloride Level 107, Carbon Dioxide Level 22, Anion Gap 12, Blood Urea Nitrogen 94H, Creatinine 6.5H, Estimat Glomerular Filtration Rate 10.5, Glucose Level 100, Calcium Level 9.0 Height (Feet): 5 Height (Inches): 7.00 Weight (Pounds): 194 General Appearance: no apparent distress Objective uncooperative Elbert Deng MD Nov 02, 2018 12:16
[2018-11-02] MEDS ORDERED: Tubing IV Secondary IV ONE (15:24)
[2018-11-02 16:01] VITALS: BP 151/95
[2018-11-02 20:00] VITALS: BP 150/88
--- NOTE | 2018-11-02 20:19 | General Progress Note ---
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 (2) Schizophrenia ICD Codes: F20.9 - Schizophrenia, unspecified SNOMED: 15645728 Assessment/Plan Depakote Risperdal increase to 1mg po bid provided ro/st Subjective Allergies: Coded Allergies: FLUPHENAZINE (Verified Allergy, Unknown, 10/03/18) HALOPERIDOL (Verified Allergy, Unknown, 10/03/18) Subjective the pt uncooperative and agitated at times refuses care Objective Last 24 Hour Vital Signs Date Time Temp Pulse Resp B/P (MAP) Pulse Ox O2 Delivery O2 Flow Rate FiO2 11/02/18 16:01 97.5 81 18 151/95 (113) 96 11/02/18 12:00 97.7 69 18 149/98 (115) 97 11/02/18 09:00 Room Air 11/02/18 08:00 97.7 83 18 147/90 (109) 96 11/02/18 04:00 97.9 87 19 152/83 (106) 97 11/02/18 00:00 99.0 95 19 159/84 (109) 95 11/01/18 21:00 Room Air Intake and Output 11/01/18 11/02/18 18:59 06:59 Intake Total 720 ml 1000 ml Output Total 1300 ml Balance -580 ml 1000 ml Intake Oral 720 ml 1000 ml Output Urine Total 1300 ml # Voids 5 3 Laboratory Tests 11/02/18 09:51: White Blood Count 5.4, Red Blood Count 2.68L, Hemoglobin 8.9L, Hematocrit 26.8L , Mean Corpuscular Volume 100H, Mean Corpuscular Hemoglobin 33.0H, Mean Corpuscular Hemoglobin Concent 33.0, Red Cell Distribution Width 12.0, Platelet Count 206, Mean Platelet Volume 6.3L, Neutrophils (%) (Auto) 50.8, Lymphocytes ( %) (Auto) 32.4, Monocytes (%) (Auto) 12.1H, Eosinophils (%) (Auto) 3.6H, Basophils (%) (Auto) 1.0, Sodium Level 140, Potassium Level 4.9, Chloride Level 107, Carbon Dioxide Level 22, Anion Gap 12, Blood Urea Nitrogen 94H, Creatinine 6.5H, Estimat Glomerular Filtration Rate 10.5, Glucose Level 100, Calcium Level 9.0 Height (Feet): 5 Height (Inches): 7.00 Weight (Pounds): 194 Panda Zambrano MD Nov 02, 2018 20:19
[2018-11-02] MEDS ORDERED: Tamsulosin 0.4mg cap ORAL SCH (21:00)
[2018-11-02] MEDS: Dyna-Hex 2% Top Sol 2oz TOPIC SCH (21:47)
[2018-11-03 04:52] VITALS: BP 100/52
[2018-11-03 08:00] VITALS: BP 141/85
--- NOTE | 2018-11-03 08:36 | General Progress Note ---
Assessment/Plan Status: stable Assessment/Plan Assessment and Recs: # Anemia of chronic disease due to underlying chronic medical issues, multifactorial --> Anemia w/u has been reviewed. Ferritin at 741 --> No evidence of hemolysis is noted, peripheral smear has been reviewed. --> Hgb goal >7. Transfuse prn. --> Pt received iv iron on prior admission, now ferritin is 704 --> Cont po folic acid daily --> Cont Procrit 3x a week per nephro but has refused before --> trend hgb 7.4-->7.7-->7.9-->8.7-->8.9 # DVT. Pt is on eliquis. --> has not worsened --> continue on eliquis # ESRD. On HD --> Nephrology is following. Appreciate recs. --> Pt is noncompliant with HD # Psych disorder. Psych to follow. # Hyperkalemia. K 5.1 at admission --> Currently at 5.0, wnl # Noncompliance significant history --> psych eval Subjective Date patient seen: Nov 02, 2018 Hematologic/Lymphatic: Reports: anemia Allergies: Coded Allergies: FLUPHENAZINE (Verified Allergy, Unknown, 10/03/18) HALOPERIDOL (Verified Allergy, Unknown, 10/03/18) All Systems: reviewed and negative except above Subjective 10/31: has been refusing dialysis with vip, rn is aware 11/01: again altered this am, refusing HD, renal aware 11/02: Pt awake and confused. Pt removed IV access and refusing reinsertion. H/ H stable. Objective Last 24 Hour Vital Signs Date Time Temp Pulse Resp B/P (MAP) Pulse Ox O2 Delivery O2 Flow Rate FiO2 11/03/18 08:00 97.2 74 19 141/85 (103) 99 11/03/18 04:52 97.9 85 18 100/52 (68) 93 11/02/18 22:21 Room Air 11/02/18 20:00 99.0 81 20 150/88 (108) 95 11/02/18 16:01 97.5 81 18 151/95 (113) 96 11/02/18 12:00 97.7 69 18 149/98 (115) 97 11/02/18 09:00 Room Air Intake and Output 11/02/18 11/03/18 19:00 07:00 Intake Total 680 ml 300 ml Output Total 1300 ml 850 ml Balance -620 ml -550 ml Intake Oral 680 ml 300 ml Output Urine Total 1300 ml 850 ml # Voids 5 1 Laboratory Tests 11/02/18 09:51: White Blood Count 5.4, Red Blood Count 2.68L, Hemoglobin 8.9L, Hematocrit 26.8L , Mean Corpuscular Volume 100H, Mean Corpuscular Hemoglobin 33.0H, Mean Corpuscular Hemoglobin Concent 33.0, Red Cell Distribution Width 12.0, Platelet Count 206, Mean Platelet Volume 6.3L, Neutrophils (%) (Auto) 50.8, Lymphocytes ( %) (Auto) 32.4, Monocytes (%) (Auto) 12.1H, Eosinophils (%) (Auto) 3.6H, Basophils (%) (Auto) 1.0, Sodium Level 140, Potassium Level 4.9, Chloride Level 107, Carbon Dioxide Level 22, Anion Gap 12, Blood Urea Nitrogen 94H, Creatinine 6.5H, Estimat Glomerular Filtration Rate 10.5, Glucose Level 100, Calcium Level 9.0 Height (Feet): 5 Height (Inches): 7.00 Weight (Pounds): 192 Ulices Lanza MD Nov 03, 2018 08:36
[2018-11-03] MEDS: Docusate 100mg cap ORAL SCH ×3 (08:56→17:35)
[2018-11-03] MEDS: Eliquis 2.5mg tablet ORAL SCH (08:57)
[2018-11-03] MEDS: Calcium Acetate 667mg Tab ORAL SCH ×3 (08:57→17:35)
--- NOTE | 2018-11-03 09:48 | General Progress Note ---
Assessment/Plan Problem List: (1) Fluid overload ICD Codes: E87.70 - Fluid overload, unspecified SNOMED: 22454321 (2) Hyperkalemia ICD Codes: E87.5 - Hyperkalemia SNOMED: 14362377 Assessment/Plan (1) Fluid overload ICD Codes: E87.70 - Fluid overload, unspecified SNOMED: 42564517 due to noncompliance with HD nephro consulted improving (2) Hyperkalemia ICD Codes: E87.5 - Hyperkalemia SNOMED: 08562630 K 5 yesterday, pending AM labs continues to refuse HD (1) Psychiatric disorder Assessment & Plan: schizophrenia will resume meds valproic depakote ICD Codes: F99 - Mental disorder, not otherwise specified SNOMED: 57453425, 765363906 (2) ESRD (end stage renal disease) Assessment & Plan: continuously refused HD cont hd per nephro ICD Codes: N18.6 - End stage renal disease SNOMED: 08617627 (4) DVT (deep venous thrombosis) Assessment & Plan: resume home eliquis ICD Codes: I82.409 - Acute embolism and thrombosis of unspecified deep veins of unspecified lower extremity SNOMED: 535557463 Qualifiers: Qualified Codes: I82.509 - Chronic embolism and thrombosis of unspecified deep veins of unspecified lower extremity (5) Schizophrenia Assessment & Plan: stable monitor currently stable psych consulted ICD Codes: F20.9 - Schizophrenia, unspecified SNOMED: 50410222 (6) Noncompliance of patient with renal dialysis Assessment & Plan: noncompliant with HD missed last 3 HD likely due to psych issues/schizophrenia educated on importance of compliance ICD Codes: Z91.15 - Patient's noncompliance with renal dialysis SNOMED: 936026792826266 (7) Anemia in chronic kidney disease, on chronic dialysis Assessment & Plan: stable mcv 99 to 101 continue to monitor no acute bleeding due to esrd on hd nephro following ICD Codes: N18.6 - End stage renal disease; D63.1 - Anemia in chronic kidney disease; Z99.2 - Dependence on renal dialysis SNOMED: 001124352, 577636112, 992541683 Status: stable Assessment/Plan ppx: eliquis diet; renal hd DVT Prophylaxis: SCD, eliquis Code Status: Full Hospital Classification Declaration: Based on this initial evaluation, and depending on the patient's clinical course, I anticipate that this patient will require hospitalization for 2 midnight for HD and close respiratory/hemodynamic monitoring. Disposition: Once the patient is stable to leave the hospital, I anticipate the patient will likely be discharged to the following environment: SNF I spent 40 minutes on this patient's case, and 25 minutes were dedicated to counseling and/or care coordination. Discussed with patient/family, nursing staff, SW/CM regarding clinical status, treatment course, and disposition planning. Time of note may not reflect time of encounter. I have reviewed all imaging, labs and medications with patient Subjective Date patient seen: Nov 03, 2018 Time patient seen: 09:48 Allergies: Coded Allergies: FLUPHENAZINE (Verified Allergy, Unknown, 10/03/18) HALOPERIDOL (Verified Allergy, Unknown, 10/03/18) Subjective f/u esrd on hd, noncompliance, schizophrenia appreciate psych eval more calm currently HD per nephrology gets agitated at times however calms down with long discussion snf pending ROS: 14 point ROS reviewed and negative except per above subjective Objective Last 24 Hour Vital Signs Date Time Temp Pulse Resp B/P (MAP) Pulse Ox O2 Delivery O2 Flow Rate FiO2 11/03/18 08:00 97.2 74 19 141/85 (103) 99 11/03/18 04:52 97.9 85 18 100/52 (68) 93 11/02/18 22:21 Room Air 11/02/18 20:00 99.0 81 20 150/88 (108) 95 11/02/18 16:01 97.5 81 18 151/95 (113) 96 11/02/18 12:00 97.7 69 18 149/98 (115) 97 Intake and Output 11/02/18 11/03/18 19:00 07:00 Intake Total 680 ml 300 ml Output Total 1300 ml 850 ml Balance -620 ml -550 ml Intake Oral 680 ml 300 ml Output Urine Total 1300 ml 850 ml # Voids 5 1 Laboratory Tests 11/02/18 09:51: White Blood Count 5.4, Red Blood Count 2.68L, Hemoglobin 8.9L, Hematocrit 26.8L , Mean Corpuscular Volume 100H, Mean Corpuscular Hemoglobin 33.0H, Mean Corpuscular Hemoglobin Concent 33.0, Red Cell Distribution Width 12.0, Platelet Count 206, Mean Platelet Volume 6.3L, Neutrophils (%) (Auto) 50.8, Lymphocytes ( %) (Auto) 32.4, Monocytes (%) (Auto) 12.1H, Eosinophils (%) (Auto) 3.6H, Basophils (%) (Auto) 1.0, Sodium Level 140, Potassium Level 4.9, Chloride Level 107, Carbon Dioxide Level 22, Anion Gap 12, Blood Urea Nitrogen 94H, Creatinine 6.5H, Estimat Glomerular Filtration Rate 10.5, Glucose Level 100, Calcium Level 9.0 Height (Feet): 5 Height (Inches): 7.00 Weight (Pounds): 192 Objective General Appearance: no apparent distress, alert, agitated Lines, tubes and drains: peripheral HEENT: normocephalic, atraumatic, anicteric, mucous membranes moist, PERRL Neck: non-tender, normal alignment, supple, normal inspection Respiratory/Chest: chest wall non-tender, lungs clear, normal breath sounds, no respiratory distress, no accessory muscle use, respiratory distress Cardiovascular/Chest: normal peripheral pulses, normal rate, regular rhythm Abdomen: normal bowel sounds, non tender, soft, no organomegaly, no mass Extremities: normal range of motion, non-tender, normal inspection, no calf tenderness, normal capillary refill, non-pitting Skin Exam: normal pigmentation, warm/dry, cyanotic 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
--- NOTE | 2018-11-03 11:49 | Discharge Summary ---
Discharge Summary Hospital Course Date of Admission Oct 26, 2018 at 20:14 Date of Discharge 11/03/18 Admitting Diagnosis psychosis, altered mental status HPI Rex Forrester is a 63 year old male who was admitted on Oct 26, 2018 at 20:14 for Psychosis/Altered Mental Status 63 yo male with h/o dvt, esrd on hd, schizophrenia presented from [facility], missed his last 3 HD sessions. seen by nephro and psych patient received HD however continues to refused HD depending on mood K improved stable now dc to [facility] Physical Exam: General Appearance: no apparent distress, alert, agitated Lines, tubes and drains: peripheral HEENT: normocephalic, atraumatic, anicteric, mucous membranes moist, PERRL Neck: non-tender, normal alignment, supple, normal inspection Respiratory/Chest: chest wall non-tender, lungs clear, normal breath sounds, no respiratory distress, no accessory muscle use, respiratory distress Cardiovascular/Chest: normal peripheral pulses, normal rate, regular rhythm Abdomen: normal bowel sounds, non tender, soft, no organomegaly, no mass Extremities: normal range of motion, non-tender, normal inspection, no calf tenderness, normal capillary refill, non-pitting Skin Exam: normal pigmentation, warm/dry, cyanotic Neurologic: documentation liaison 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 normal, no motor/sensory deficits, alert, oriented x 3, responsive, normal mood/affect Hospital Course (1) Fluid overload ICD Codes: E87.70 - Fluid overload, unspecified SNOMED: 65119411 due to noncompliance with HD nephro consulted improving (2) Hyperkalemia ICD Codes: E87.5 - Hyperkalemia SNOMED: 65790316 K 5 yesterday, pending AM labs continues to refuse HD (1) Psychiatric disorder Assessment & Plan: schizophrenia will resume meds valproic depakote ICD Codes: F99 - Mental disorder, not otherwise specified SNOMED: 85313616, 187109960 (2) ESRD (end stage renal disease) Assessment & Plan: continuously refused HD cont hd per nephro ICD Codes: N18.6 - End stage renal disease SNOMED: 31473958 (4) DVT (deep venous thrombosis) Assessment & Plan: resume home eliquis ICD Codes: I82.409 - Acute embolism and thrombosis of unspecified deep veins of unspecified lower extremity SNOMED: 048050677 Qualifiers: Qualified Codes: I82.509 - Chronic embolism and thrombosis of unspecified deep veins of unspecified lower extremity (5) Schizophrenia Assessment & Plan: stable monitor currently stable psych consulted ICD Codes: F20.9 - Schizophrenia, unspecified SNOMED: 54682006 (6) Noncompliance of patient with renal dialysis Assessment & Plan: noncompliant with HD missed last 3 HD likely due to psych issues/schizophrenia educated on importance of compliance ICD Codes: Z91.15 - Patient's noncompliance with renal dialysis SNOMED: 751142282056042 (7) Anemia in chronic kidney disease, on chronic dialysis Assessment & Plan: stable mcv 99 to 101 continue to monitor no acute bleeding due to esrd on hd nephro following ICD Codes: N18.6 - End stage renal disease; D63.1 - Anemia in chronic kidney disease; Z99.2 - Dependence on renal dialysis SNOMED: 329847432, 070345622, 984857502 Status: stable Assessment/Plan ppx: eliquis diet; renal hd DVT Prophylaxis: SCD, eliquis Code Status: Full Hospital Classification Declaration: Based on this initial evaluation, and depending on the patient's clinical course, I anticipate that this patient will require hospitalization for 2 midnight for HD and close respiratory/hemodynamic monitoring. Disposition: Once the patient is stable to leave the hospital, I anticipate the patient will likely be discharged to the following environment: SNF I spent 40 minutes on this patient's case, and 25 minutes were dedicated to counseling and/or care coordination. Discussed with patient/family, nursing staff, SW/CM regarding clinical status, treatment course, and disposition planning. Time of note may not reflect time of encounter. I have reviewed all imaging, labs and medications with patient Discharge Medications Continued Medications: Apixaban (Eliquis) 2.5 Mg Tablet 2.5 MG PO BID, TAB (This prescription has been renewed) Bisacodyl (Dulcolax) 10 Mg Supp.rect 10 MG RC, SUPP (This prescription has been renewed) Calcium Acetate (Calcium Acetate) 667 Mg Capsule 667 MG PO, CAP (This prescription has been renewed) Cholecalciferol (Vitamin D3) (Decara) 50,000 Unit Capsule 70344 UNIT PO ONCE A WEEK, CAP (This prescription has been renewed) Ferrous Sulfate (Iron) 325 Mg Tablet 325 MG PO DAILY, TAB (This prescription has been renewed) Pantoprazole* (Protonix*) 40 Mg Tablet.dr 40 MG ORAL DAILY, TAB (This prescription has been renewed) Valproate Sodium (Valproic Acid) 250 Mg/5 Ml Solution 500 MG PO TID (This prescription has been renewed) Vitamin B Cmplx/Vit C/Folic AC (Nephro-Kyree Tablet) 0.8 Mg Tablet 1 TAB ORAL DAILY, #30 TAB 0 Refills (This prescription has been renewed) Vitamin B Cmplx/Vit C/Folic AC (Nephro-Kyree Tablet) 0.8 Mg Tablet 1 TAB ORAL DAILY, #30 TAB 0 Refills (This prescription has been renewed) Discontinued Medications: Bisacodyl* (Dulcolax*) 5 Mg Tablet.dr 10 MG ORAL ONCE, #4 TAB 0 Refills Docusate Sodium* (Docusate Sodium*) 100 Mg Capsule 100 MG ORAL THREE TIMES A DAY, CAP Ferrous Sulfate* (Ferrous Sulfate*) 325 Mg Tablet 325 MG ORAL DAILY, #30 TAB 0 Refills Ondansetron* (Zofran*) 4 Mg Tablet 4 MG ORAL Q6H PRN for Nausea & Vomiting, TAB Ondansetron* (Zofran*) 4 Mg Tablet 4 MG ORAL Q6H PRN for Nausea & Vomiting, TAB Pantoprazole* (Protonix*) 40 Mg Tablet.dr 40 MG ORAL DAILY, TAB Sennosides (Magui-Rashida) 8.6 Mg Tablet 8.6 MG PO DAILY, TAB Discharge Condition Upon Discharge: stable Discharge Disposition Patient was discharged to SNF Discharge Diagnoses: (1) Fluid overload (2) Hyperkalemia (3) Schizophrenia (4) ESRD (end stage renal disease) (5) Anemia in CKD (chronic kidney disease) (6) Psychiatric disorder (7) DVT (deep venous thrombosis) (8) Noncompliance of patient with renal dialysis (9) Anemia in chronic kidney disease, on chronic dialysis Aleshia Shaffer MD Nov 03, 2018 11:49
[2018-11-03 12:00] VITALS: BP 138/91
--- NOTE | 2018-11-03 15:01 | Nephrology Progress Note ---
Assessment/Plan Problem List: (1) ESRD (end stage renal disease) (2) Schizophrenia (3) Anemia in CKD (chronic kidney disease) Assessment - ESRD (end stage renal disease) - Noncompliance of patient with renal dialysis - Anemia of CKD -DVT (deep venous thrombosis) -Schizophrenia / Psychiatric disorder Plan HD 10/28 next 10/31.......... - refusing sofar ! add flomax refuses care periodically Per Psych adjust meds per orders Subjective ROS Limited/Unobtainable: No Objective Objective Last 24 Hour Vital Signs Date Time Temp Pulse Resp B/P (MAP) Pulse Ox O2 Delivery O2 Flow Rate FiO2 11/03/18 12:00 98.2 77 19 138/91 (107) 99 11/03/18 09:00 Room Air 11/03/18 08:00 97.2 74 19 141/85 (103) 99 11/03/18 04:52 97.9 85 18 100/52 (68) 93 11/02/18 22:21 Room Air 11/02/18 20:00 99.0 81 20 150/88 (108) 95 11/02/18 16:01 97.5 81 18 151/95 (113) 96 Intake and Output 11/02/18 11/03/18 19:00 07:00 Intake Total 680 ml 300 ml Output Total 1300 ml 850 ml Balance -620 ml -550 ml Intake Oral 680 ml 300 ml Output Urine Total 1300 ml 850 ml # Voids 5 1 Height (Feet): 5 Height (Inches): 7.00 Weight (Pounds): 192 General Appearance: no apparent distress Objective uncooperative Elbert Deng MD Nov 03, 2018 15:01
[2018-11-03 16:00] VITALS: BP 137/99
--- NOTE | 2018-11-03 20:21 | General Progress Note ---
Assessment/Plan Assessment/Plan Assessment and Recs: # Anemia of chronic disease due to underlying chronic medical issues, multifactorial --> Anemia w/u has been reviewed. Ferritin at 741 --> No evidence of hemolysis is noted, peripheral smear has been reviewed. --> Hgb goal >7. Transfuse prn. --> Pt received iv iron on prior admission, now ferritin is 704 --> Cont po folic acid daily --> Cont Procrit 3x a week per nephro but has refused before --> trend hgb 7.4-->7.7-->7.9-->8.7-->8.9 # DVT. Pt is on eliquis. --> has not worsened --> continue on eliquis # ESRD. On HD --> Nephrology is following. Appreciate recs. --> Pt is noncompliant with HD # Psych disorder. Psych to follow. # Hyperkalemia. K 5.1 at admission --> Currently at 5.0, wnl # Noncompliance significant history --> psych eval Subjective Constitutional: Denies: no symptoms, chills, diaphoresis, fever, malaise, weakness, other Cardiovascular: Denies: no symptoms, chest pain, edema, irregular heart rate, lightheadedness, palpitations, syncope, other Respiratory: Denies: no symptoms, cough, orthopnea, shortness of breath, SOB with excertion, SOB at rest, sputum, stridor, wheezing, other Gastrointestinal/Abdominal: Denies: no symptoms, abdomen distended, abdominal pain, black stools, tarry stools, blood in stool, constipated, diarrhea, difficulty swallowing, nausea, poor appetite, poor fluid intake, rectal bleeding , vomiting, other Genitourinary: Denies: no symptoms, burning, discharge, frequency, flank pain, hematuria, incontinence, pain, urgency, other Neurologic/Psychiatric: Denies: no symptoms, anxiety, depressed, emotional problems, headache, numbness, paresthesia, pre-existing deficit, seizure, tingling, tremors, weakness, other Hematologic/Lymphatic: Denies: no symptoms, anemia, easy bleeding, easy bruising, other Allergies: Coded Allergies: FLUPHENAZINE (Verified Allergy, Unknown, 10/03/18) HALOPERIDOL (Verified Allergy, Unknown, 10/03/18) Subjective 10/31: has been refusing dialysis with vip, rn is aware 11/01: again altered this am, refusing HD, renal aware 11/02: Pt awake and confused. Pt removed IV access and refusing reinsertion. H/ H stable. 11/03: wants to be discharged, is stable, improved since admission, to go to [facility] Objective Last 24 Hour Vital Signs Date Time Temp Pulse Resp B/P (MAP) Pulse Ox O2 Delivery O2 Flow Rate FiO2 11/03/18 16:00 98.7 79 18 137/99 (112) 98 11/03/18 12:00 98.2 77 19 138/91 (107) 99 11/03/18 09:00 Room Air 11/03/18 08:00 97.2 74 19 141/85 (103) 99 11/03/18 04:52 97.9 85 18 100/52 (68) 93 11/02/18 22:21 Room Air Intake and Output 11/02/18 11/03/18 18:59 06:59 Intake Total 680 ml 300 ml Output Total 1300 ml 850 ml Balance -620 ml -550 ml Intake Oral 680 ml 300 ml Output Urine Total 1300 ml 850 ml # Voids 5 1 Height (Feet): 5 Height (Inches): 7.00 Weight (Pounds): 192 Cardiovascular: regular rhythm Respiratory/Chest: normal breath sounds Abdomen: non tender, no mass Extremities: non-tender Neurologic: oriented x 3 Skin: warm/dry Ulices Lanza MD Nov 03, 2018 20:21
== END 2018-11-03 19:00 | DRG 425 ==
LOC: EDBD 19:30 → EMR 19:40 → EDBEDREQ 19:42 → OBSVTOIN 20:14 → 2W 20:14 → EDBEDREQ 20:48 → 4E 10-28 17:23
PROC: 5A1D70Z Performance of Urinary Filtration, Intermittent, Less than 6 Hours Per Day (ICD-10-PCS; principal; 2018-10-31)
DX: E87.79 Other fluid overload (principal); G92 Toxic encephalopathy; N18.6 End stage renal disease; F20.9 Schizophrenia, unspecified; E87.5 Hyperkalemia; Z86.718 Personal history of other venous thrombosis and embolism; Z79.01 Long term (current) use of anticoagulants; D63.1 Anemia in chronic kidney disease; Z91.19 Patient's noncompliance with other medical treatment and regimen; Z88.8 Allergy status to other drugs, medicaments and biological substances
CPT/HCPCS: 36415; 71045; 80048; 80053; 80061; 81001; 82607; 82728; 82746; 82977; 83036; 83540; 83550; 83735; 83880; 84100; 84165; 84443; 84484; 84550; 85007; 85025; 86140; 87081; 93005; 96365; 99285

== ENCOUNTER 2018-11-09 16:55 | Inpatient (IN) | payer MEDICAID, OTHER ==
[~2018-11-09] VITALS: Ht 172.7 cm; Wt 94.3 kg
[~2018-11-09 16:55] MED LIST changes: +BISACODYL5 MG ORAL; +CALCIUM ACETAT667 M1 PO; +DOCUSATE SODIU100 MG ORAL; +FERROUS SULFAT325 MG ORAL
[2018-11-09] MEDS ORDERED: LORazepam Inj 2mg/ml 1ml IM ONE (17:15)
--- NOTE | 2018-11-09 18:16 | Emergency Room Report ---
History of Present Illness General Chief Complaint: General Complaint Source: Patient Present Illness HPI Patient is brought in by EMS. He's been violent and combative and refusing dialysis at the [facility] facility. His doctor ordered to have him sent in for evaluation and possible dialysis. Patient states he has pain all over his body. He states he wants to go and have a cigarette. The patient refuses to answer any other questions. Patient has a history of schizophrenia. According to his med recon, he is not taking any antipsychotic medications. He does take valproic acid. Also the patient is on Eliquis. The patient still makes urine. Patient was discharged on November 03 with a similar presentation. Discharge diagnoses: (1) Fluid overload (2) Hyperkalemia (3) Schizophrenia (4) ESRD (end stage renal disease) (5) Anemia in CKD (chronic kidney disease) (6) Psychiatric disorder (7) DVT (deep venous thrombosis) (8) Noncompliance of patient with renal dialysis (9) Anemia in chronic kidney disease, on chronic dialysis Allergies: Coded Allergies: FLUPHENAZINE (Verified Allergy, Unknown, 10/03/18) HALOPERIDOL (Verified Allergy, Unknown, 10/03/18) Patient History Limited by: medical condition Past Medical History: see triage record, old chart reviewed Past Surgical History: other - Vascular access right chest Social History: Reports: smoking; Denies: drug use Social History Narrative Kristin Ambriz Reviewed Nursing Documentation: PMH: Agreed; PSxH: Agreed Nursing Documentation-PM Past Medical History: No History, Except For Hx Cardiac Problems: Yes Hx Hypertension: Yes Hx Cancer: No Hx Gastrointestinal Problems: No Hx Dialysis: Yes - ESRD Hx Neurological Problems: No Review of Systems All Other Systems: limited Physical Exam Vital Signs Date Time Temp Pulse Resp B/P (MAP) Pulse Ox O2 Delivery O2 Flow Rate FiO2 11/09/18 16:51 98.4 91 18 153/91 98 Room Air Sp02 EP Interpretation: reviewed, normal General Appearance: other - The patient is agitated and screaming, Chronically Ill Head: normocephalic Eyes: bilateral eye normal inspection, bilateral eye PERRL, bilateral eye EOMI ENT: moist mucus membranes Neck: supple Respiratory: decreased breath sounds, other - Vascular access right chest Cardiovascular #1: regular rate, rhythm, JVD Cardiovascular #2: 2+ radial (R) Gastrointestinal: normal inspection, normal bowel sounds, non tender, no mass, non-distended Musculoskeletal: back normal, normal range of motion Neurologic: alert, cash accounting clerk III-XII nml as tested, motor strength/tone normal, DTRs symmetric, sensory intact, oriented - x 1 Psychiatric: other - Agitated and delusional with poor response to external stimuli Skin: warm/dry, other - Shallow Medical Decision Making Diagnostic Impression: Primary Impression: Psychosis Qualified Codes: F29 - Unspecified psychosis not due to a substance or known physiological condition Additional Impressions: ESRD (end stage renal disease) on dialysis Pulmonary edema Qualified Codes: J81.1 - Chronic pulmonary edema Uremic encephalopathy Delirium History of schizophrenia Noncompliance of patient with renal dialysis Anemia in chronic kidney disease, on chronic dialysis Elevated brain natriuretic peptide (BNP) level ER Course Dialysis patient presenting with agitation and refusing dialysis. Differential includes acute psychosis, acute myocardial infarction, encephalopathy, exacerbation of schizophrenia, pulmonary edema, electrolyte abnormality amongst others. The patient is refusing treatment at this time but does not understand the risk of doing so. The patient will be sedated and then evaluated with EKG, chest x-ray and labs. Most likely the patient will need to have hospitalization for dialysis as well as psychiatric evaluation. The patient is sedated with Thorazine, Ativan and Benadryl. EKG sinus rhythm with nonspecific ST-T wave changes rate of 78. Chest x-ray vascular access right side with hypertension. Rotational film. Labs with normal white count. Electrolytes without needing acute dialysis. Evidence of chronic renal failure with elevated BUN which may be the etiology to the patient 's agitation and encephalopathy. Nitro placed is applied with some improvement. The patient is improved however needing evaluation as elucidated above. Patient last agitated and following commands. Admit med Dr. Aguilar (he is listed as the primary physician) - Dr. Aguiar supervisor purification. Dr. Zambrano for consultation. Laboratory Tests Test 11/09/18 19:29 11/09/18 19:36 White Blood Count 7.4 K/UL (4.8-10.8) Red Blood Count 2.67 M/UL (4.70-6.10) L Hemoglobin 8.7 G/DL (14.2-18.0) L Hematocrit 26.6 % (42.0-52.0) L Mean Corpuscular Volume 100 FL (80-99) H Mean Corpuscular Hemoglobin 32.6 PG (27.0-31.0) H Mean Corpuscular Hemoglobin Concent 32.8 G/DL (32.0-36.0) Red Cell Distribution Width 12.1 % (11.6-14.8) Platelet Count 180 K/UL (150-450) Mean Platelet Volume 6.2 FL (6.5-10.1) L Neutrophils (%) (Auto) 51.0 % (45.0-75.0) Lymphocytes (%) (Auto) 32.9 % (20.0-45.0) Monocytes (%) (Auto) 11.4 % (1.0-10.0) H Eosinophils (%) (Auto) 3.6 % (0.0-3.0) H Basophils (%) (Auto) 1.1 % (0.0-2.0) Prothrombin Time 11.2 SEC (9.30-11.50) Prothrombin Time INR 1.1 (0.9-1.1) PTT 27 SEC (23-33) Sodium Level 138 MMOL/L (136-145) Potassium Level 5.0 MMOL/L (3.5-5.1) Chloride Level 108 MMOL/L (98-107) H Carbon Dioxide Level 17 MMOL/L (21-32) L Anion Gap 13 mmol/L (5-15) Blood Urea Nitrogen 102 mg/dL (7-18) H Creatinine 6.6 MG/DL (0.55-1.30) H Estimate Glomerular Filtration Rate 10.4 mL/min (>60) Glucose Level 84 MG/DL (74-106) Calcium Level 8.9 MG/DL (8.5-10.1) Total Bilirubin 0.2 MG/DL (0.2-1.0) Aspartate Amino Transferase (AST) 17 U/L (15-37) Alanine Aminotransferase (ALT) 13 U/L (12-78) Alkaline Phosphatase 84 U/L (46-116) Total Creatine Kinase 161 U/L (26-308) Troponin I 0.019 ng/mL (0.000-0.056) Pro-B-Type Natriuretic Peptide 1373 pg/mL (0-125) H Total Protein 7.9 G/DL (6.4-8.2) Albumin 3.0 G/DL (3.4-5.0) L Globulin 4.9 g/dL Albumin/Globulin Ratio 0.6 (1.0-2.7) L Urine Color Pale yellow Urine Appearance Clear Urine pH 6 (4.5-8.0) Urine Specific [place] 1.005 (1.005-1.035) Urine Protein 1+ (NEGATIVE) H Urine Glucose (UA) Negative (NEGATIVE) Urine Ketones Negative (NEGATIVE) Urine Blood 2+ (NEGATIVE) H Urine Nitrite Negative (NEGATIVE) Urine Bilirubin Negative (NEGATIVE) Urine Urobilinogen Normal MG/DL (0.0-1.0) Urine Leukocyte Esterase Negative (NEGATIVE) Urine RBC 0-2 /HPF (0 - 0) H Urine WBC 0-2 /HPF (0 - 0) Urine Squamous Epithelial Cells Occasional /LPF Urine Bacteria None /HPF (NONE) Urine Opiates Screen Negative (NEGATIVE) Urine Barbiturates Screen Negative (NEGATIVE) Phencyclidine (PCP) Screen Negative (NEGATIVE) Urine Amphetamines Screen Negative (NEGATIVE) Urine Benzodiazepines Screen Negative (NEGATIVE) Urine Cocaine Screen Negative (NEGATIVE) Urine Marijuana (THC) Screen Negative (NEGATIVE) EKG Diagnostic Results Rate: normal Rhythm: NSR ST Segments: no acute changes Rhythm Strip Diag. Results EP Interpretation: yes Rhythm: NSR, no PVC's, no ectopy Chest X-Ray Diagnostic Results Chest X-Ray Diagnostic Results : Chest X-Ray Ordered: Yes # of Views/Limited/Complete: 1 View Indication: Other EP Interpretation: Yes Interpretation: no effusion, no pneumothorax, other - pulm htn, vascath R Impression: Other Electronically Signed by: Electronically signed by Norman Shah MD Last Vital Signs Date Time Temp Pulse Resp B/P (MAP) Pulse Ox O2 Delivery O2 Flow Rate FiO2 11/10/18 00:49 Room Air 11/10/18 00:00 99.0 87 20 137/73 (94) 87 11/09/18 22:30 93 Status: improved Disposition: ADMITTED INPATIENT Condition: Serious Referrals: Daryl Aguilar DO (PCP) Norman Shah MD Nov 09, 2018 18:16
[2018-11-09 19:34] VITALS: BP 153/86
[2018-11-09 19:45] LABS: BASOPHILS % (AUTO) 1.1 % (0.0-2.0); EOSINOPHILS % (AUTO) 3.6 % (0.0-3.0); HEMATOCRIT 26.6 % (42.0-52.0); HEMOGLOBIN 8.7 G/DL (14.2-18.0); LYMPHOCYTES % (AUTO) 32.9 % (20.0-45.0); MEAN CORPUSCULAR VOLUME 100 FL (80-99); MONOCYTES % (AUTO) 11.4 % (1.0-10.0); PLATELET COUNT 180 K/UL (150-450); RED BLOOD COUNT 2.67 M/UL (4.70-6.10); RED CELL DISTRIBUTION WIDTH 12.1 % (11.6-14.8); WHITE BLOOD COUNT 7.4 K/UL (4.8-10.8)
[2018-11-09 19:59] LABS: INR 1.1 (0.9-1.1)
[2018-11-09 20:04] LABS: ANION GAP 13 mmol/L (5-15); BLOOD UREA NITROGEN 102 mg/dL (7-18); CALCIUM 8.9 MG/DL (8.5-10.1); CARBON DIOXIDE 17 MMOL/L (21-32); CHLORIDE 108 MMOL/L (98-107); CREATININE 6.6 MG/DL (0.55-1.30); SODIUM 138 MMOL/L (136-145)
[2018-11-09 20:15] LABS: ALANINE AMINOTRANSFERASE 13 U/L (12-78); ALBUMIN/GLOBULIN RATIO 0.6 (1.0-2.7); ALKALINE PHOSPHATASE 84 U/L (46-116); ASPARTATE AMINO TRANSFERASE 17 U/L (15-37); BILIRUBIN,TOTAL 0.2 MG/DL (0.2-1.0); CREATINE KINASE 161 U/L (26-308)
[2018-11-09 20:18] LABS: APPEARANCE,URINE CLEAR; BILIRUBIN, URINE NEGATIVE (NEGATIVE); COLOR,URINE PALE YELLOW; GLUCOSE, URINE (UA) NEGATIVE (NEGATIVE); KETONES,URINE NEGATIVE (NEGATIVE); LEUKOCYTE ESTERASE ,URINE NEGATIVE (NEGATIVE); NITRITE,URINE NEGATIVE (NEGATIVE); PH,URINE 6 (4.5-8.0); PROTEIN,URINE 1+ (NEGATIVE); UROBILINOGEN,URINE NORMAL MG/DL (0.0-1.0)
[2018-11-09] MEDS ORDERED: Nitroglycerin 2% oint pkt TOPIC ONE (21:30)
[2018-11-09 22:00] VITALS: BP 148/84
[2018-11-09 22:30] VITALS: BP 137/73
[2018-11-10] VITALS: BP 137/73
[2018-11-10] MEDS ORDERED: LORazepam Inj 2mg/ml 1ml IM PRN (00:30)
[2018-11-10 04:00] VITALS: BP 129/73
[2018-11-10 06:35] LABS: HEMATOCRIT 23.7 % (42.0-52.0); HEMOGLOBIN 7.9 G/DL (14.2-18.0); MEAN CORPUSCULAR VOLUME 98 FL (80-99); PLATELET COUNT 180 K/UL (150-450); RED BLOOD COUNT 2.41 M/UL (4.70-6.10); RED CELL DISTRIBUTION WIDTH 11.9 % (11.6-14.8); WHITE BLOOD COUNT 6.5 K/UL (4.8-10.8)
[2018-11-10 06:57] LABS: ALANINE AMINOTRANSFERASE 15 U/L (12-78); ALBUMIN 2.7 G/DL (3.4-5.0); ALBUMIN/GLOBULIN RATIO 0.6 (1.0-2.7); ALKALINE PHOSPHATASE 64 U/L (46-116); ANION GAP 12 mmol/L (5-15); ASPARTATE AMINO TRANSFERASE 18 U/L (15-37); BILIRUBIN,TOTAL 0.2 MG/DL (0.2-1.0); BLOOD UREA NITROGEN 104 mg/dL (7-18); CALCIUM 9.2 MG/DL (8.5-10.1); CARBON DIOXIDE 17 MMOL/L (21-32); CHLORIDE 112 MMOL/L (98-107); CREATININE 6.6 MG/DL (0.55-1.30); POTASSIUM 5.1 MMOL/L (3.5-5.1); SODIUM 141 MMOL/L (136-145)
[2018-11-10 08:00] VITALS: BP 127/62
[2018-11-10] MEDS: Docusate 100mg cap ORAL SCH ×3 (09:11→17:41)
--- NOTE | 2018-11-10 10:36 | Consultation ---
Consult Note Consult Note asked to eval for dialysis- Known to me from his recent admission of a weak ago Patient is brought in by EMS. He's been violent and combative and refusing dialysis at the [facility] facility. His doctor ordered to have him sent in for evaluation and possible dialysis. Patient states he has pain all over his body. He states he wants to go and have a cigarette. The patient refuses to answer any other questions. Patient has a history of schizophrenia. According to his med recon, he is not taking any antipsychotic medications. He does take valproic acid. Also the patient is on Eliquis. The patient still makes urine. Patient was discharged on November 03 with a similar presentation. Discharge diagnoses: patient is not a historian he refuses meds and dialysis data reviewed Assessment/Plan (1) ESRD (end stage renal disease) Noncompliance of patient with renal dialysis - Has right permacath (2) Schizophrenia / Psychiatric disorder (3) Anemia in CKD (chronic kidney disease) (4) h/o DVT Dialysis ordered , if agrees ! flomax refuses care periodically Per Psych adjust meds per orders Elbert Degn MD Nov 10, 2018 10:36
[2018-11-10] MEDS: Eliquis 2.5mg tablet ORAL SCH ×5 (10:51→22:20)
--- NOTE | 2018-11-10 11:22 | Diagnostic Imaging Report ---
Indication: Dyspnea Comparison: 10/30/2018 A single view chest radiograph was obtained. Findings: Mild vascular congestion demonstrated. There is dextroposition of the heart. Right permacath noted once again. No pleural effusion appreciated. IMPRESSION: Pulmonary vascular congestion
[2018-11-10 11:30] LABS: FERRITIN 644 NG/ML (8-388); PHOSPHORUS 4.8 MG/DL (2.5-4.9)
[2018-11-10] MEDS ORDERED: Vancomycin 1 GM in D5W 275 ML IVPB SCH (11:30)
[2018-11-10 11:44] LABS: % IRON SATURATION 29 % (15-50); IRON 48 ug/dL (50-175); TOTAL IRON BINDING CAPACITY 165 ug/dL (250-450)
[2018-11-10 12:00] VITALS: BP 145/78
[2018-11-10] MEDS: Sodium Citrate 30ml ORAL SCH ×3 (12:00→17:41)
[2018-11-10 16:00] VITALS: BP 147/76
[2018-11-10 20:00] VITALS: BP 137/79
[2018-11-10] MEDS: Tamsulosin 0.4mg cap ORAL SCH (21:00)
[2018-11-11] VITALS: BP 132/89
--- NOTE | 2018-11-11 00:25 | Consultation ---
History of Present Illness General Chief Complaint: General Complaint Present Illness HPI 63 yo male was brought in by EMS due to being combative and refusing dialysis at the [facility] facility. During the evaluation the pt has been agitated and disorganized. he covered his head with the sheet and refused to cooperate. the pt is not engaged and is not answering the questions. the pt is refusing hd and meds Allergies: Coded Allergies: FLUPHENAZINE (Verified Allergy, Unknown, 10/03/18) HALOPERIDOL (Verified Allergy, Unknown, 10/03/18) Medication History Scheduled Apixaban (Eliquis), 2.5 MG PO BID, (Reported) Cholecalciferol (Vitamin D3) (Decara), 25,000 UNIT PO ONCE A WEEK, (Reported) Ferrous Sulfate (Iron), 325 MG PO DAILY, (Reported) Pantoprazole* (Protonix*), 40 MG ORAL DAILY, (Reported) Valproate Sodium (Valproic Acid), 500 MG PO TID, (Reported) Vitamin B Cmplx/Vit C/Folic AC (Nephro-Kyree Tablet), 1 TAB ORAL DAILY, (Reported ) Vitamin B Cmplx/Vit C/Folic AC (Nephro-Kyree Tablet), 1 TAB ORAL DAILY, (Reported ) Miscellaneous Medications Bisacodyl (Dulcolax), 10 MG RC, (Reported) Calcium Acetate (Calcium Acetate), 667 MG PO, (Reported) Patient History History Provided By: Medical Record, PMD Healthcare decision maker Resuscitation status Full Code Advanced Directive on File No Past Medical/Surgical History Past Medical/Surgical History: (1) Fluid overload (2) Hyperkalemia (3) Schizophrenia (4) ESRD (end stage renal disease) (5) Anemia in CKD (chronic kidney disease) (6) Psychiatric disorder (7) DVT (deep venous thrombosis) (8) Psyche disturbed with normal general body function (9) encephalopathy due to toxin (10) Delirium (11) History of schizophrenia (12) Elevated brain natriuretic peptide (BNP) level (13) Uremic encephalopathy (14) Psychosis (15) Noncompliance of patient with renal dialysis (16) Pulmonary edema (17) Anemia in chronic kidney disease, on chronic dialysis (18) ESRD (end stage renal disease) on dialysis Review of Systems Psychiatric: Reports: prior hx, anxiety, depressed feelings, emotional problems , hallucinations Physical Exam General Appearance: alert, agitated Neurologic: depressed affect Last 24 Hour Vital Signs Date Time Temp Pulse Resp B/P (MAP) Pulse Ox O2 Delivery O2 Flow Rate FiO2 11/10/18 21:00 Room Air 11/10/18 20:00 98.2 85 20 137/79 (98) 11/10/18 16:00 98.1 83 20 147/76 (99) 96 11/10/18 12:00 97.6 78 20 145/78 (100) 96 11/10/18 09:00 Room Air 11/10/18 08:00 97.6 88 18 127/62 (83) 96 11/10/18 04:00 98.7 80 18 129/73 (91) 96 80 11/10/18 00:49 Room Air 11/10/18 00:46 Room Air Intake and Output 11/10/18 11/11/18 19:00 07:00 Intake Total 1875.000 ml Output Total 1300 ml Balance 575.000 ml Intake Oral 1600 ml IV Total 275.000 ml Output Urine Total 1300 ml # Voids 3 Laboratory Tests Test 11/10/18 06:00 White Blood Count 6.5 K/UL (4.8-10.8) Red Blood Count 2.41 M/UL (4.70-6.10) L Hemoglobin 7.9 G/DL (14.2-18.0) L Hematocrit 23.7 % (42.0-52.0) L Mean Corpuscular Volume 98 FL (80-99) Mean Corpuscular Hemoglobin 32.9 PG (27.0-31.0) H Mean Corpuscular Hemoglobin Concent 33.4 G/DL (32.0-36.0) Red Cell Distribution Width 11.9 % (11.6-14.8) Platelet Count 180 K/UL (150-450) Mean Platelet Volume 6.2 FL (6.5-10.1) L Neutrophils (%) (Auto) % (45.0-75.0) Lymphocytes (%) (Auto) % (20.0-45.0) Monocytes (%) (Auto) % (1.0-10.0) Eosinophils (%) (Auto) % (0.0-3.0) Basophils (%) (Auto) % (0.0-2.0) Differential Total Cells Counted 100 Neutrophils % (Manual) 56 % (45-75) Lymphocytes % (Manual) 29 % (20-45) Monocytes % (Manual) 11 % (1-10) H Eosinophils % (Manual) 4 % (0-3) H Basophils % (Manual) 0 % (0-2) Band Neutrophils 0 % (0-8) Platelet Estimate Adequate Platelet Morphology Normal Hypochromasia 1+ Sodium Level 141 MMOL/L (136-145) Potassium Level 5.1 MMOL/L (3.5-5.1) Chloride Level 112 MMOL/L (98-107) H Carbon Dioxide Level 17 MMOL/L (21-32) L Anion Gap 12 mmol/L (5-15) Blood Urea Nitrogen 104 mg/dL (7-18) H Creatinine 6.6 MG/DL (0.55-1.30) H Estimat Glomerular Filtration Rate 10.4 mL/min (>60) Glucose Level 83 MG/DL (74-106) Hemoglobin A1c 4.4 % (4.3-6.0) Calcium Level 9.2 MG/DL (8.5-10.1) Phosphorus Level 4.8 MG/DL (2.5-4.9) Iron Level 48 ug/dL (50-175) L Total Iron Binding Capacity 165 ug/dL (250-450) L Percent Iron Saturation 29 % (15-50) Unsaturated Iron Binding 117 ug/dL (112-346) Ferritin 644 NG/ML (8-388) H Total Bilirubin 0.2 MG/DL (0.2-1.0) Aspartate Amino Transf (AST/SGOT) 18 U/L (15-37) Alanine Aminotransferase (ALT/SGPT) 15 U/L (12-78) Alkaline Phosphatase 64 U/L (46-116) Total Protein 6.9 G/DL (6.4-8.2) Albumin 2.7 G/DL (3.4-5.0) L Globulin 4.2 g/dL Albumin/Globulin Ratio 0.6 (1.0-2.7) L Vitamin B12 Level 386 PG/ML (193-986) Folate 19.8 NG/ML (8.6-58.9) Height (Feet): 5 Height (Inches): 8.00 Weight (Pounds): 204 Medications Current Medications Medications (Trade) Dose Ordered Sig/Bee Route PRN Reason Start Time Stop Time Status Last Admin Dose Admin Apixaban (Eliquis) 2.5 mg EVERY 12 HOURS ORAL 11/10/18 10:00 12/10/18 09:59 11/10/18 10:51 Docusate Sodium (Colace) 100 mg THREE TIMES A DAY ORAL 11/10/18 09:00 12/10/18 08:59 11/10/18 17:41 Epoetin Jonas (Procrit (for ESRD on dialysis)) 10,000 units WED-WED-WED SUBQ 11/11/18 21:00 12/11/18 20:59 Lorazepam (Ativan 2mg/ml 1ml) 1 mg Q4H PRN IM For Anxiety 11/10/18 00:30 11/17/18 00:29 Pantoprazole (Protonix) 40 mg DAILY ORAL 11/10/18 09:00 12/10/18 08:59 11/10/18 09:11 Risperidone (RisperDAL) 1 mg BID ORAL 11/10/18 09:00 12/10/18 08:59 11/10/18 17:41 Sodium Citrate (Bicitra) 30 ml EVERY 6 HOURS ORAL 11/10/18 12:00 12/10/18 11:59 Tamsulosin HCl (Flomax) 0.8 mg BEDTIME ORAL 11/10/18 21:00 12/10/18 20:59 11/10/18 21:00 Valproic Acid (Depakene) 500 mg Q8H ORAL 11/10/18 08:00 12/10/18 07:59 11/11/18 00:06 Assessment/Plan Problem List: (1) Schizophrenia ICD Codes: F20.9 - Schizophrenia, unspecified SNOMED: [id number] Assessment/Plan cont risperdal cont depakote dw primary care and nurse Panda Zambrano MD Nov 11, 2018 00:25
--- NOTE | 2018-11-11 00:42 | History and Physical Report ---
DATE OF ADMISSION: 11/09/2018 I am covering for Dr. Daryl Aguilar. This is Dr. Daryl Aguilar's patient. HISTORY OF PRESENT ILLNESS: The patient has end-stage renal disease, on hemodialysis, history of noncompliance and agitation and aggression. He was admitted because he missed his dialysis and also psychotic as well. The patient is very combative and violent and and also reports pain all over. The patient is refusing to answer questions. The patient is a poor historian. He has a history of schizophrenia as well. PAST MEDICAL HISTORY: End-stage renal disease, schizophrenia, history of DVT, history of psychosis, history of noncompliance, history of anemia, history of hypertension, GERD and constipation. PAST SURGICAL HISTORY: Past surgeries related to dialysis. ALLERGIES: Haldol and penicillin. MEDICATIONS: Dulcolax, vitamin D, ferrous sulfate, Protonix, valproic acid. FAMILY HISTORY: History of diabetes and hypertension. SOCIAL HISTORY: Does have a history of smoking. REVIEW OF SYSTEMS: HEENT: Denies headaches. RESPIRATORY: Reports some shortness of breath. Denies cough. CARDIOVASCULAR: Denies chest pain. GASTROINTESTINAL: Denies nausea, vomiting or diarrhea. EXTREMITIES: Reports pain all over. CENTRAL NERVOUS SYSTEM: Denies change in speech pattern. PHYSICAL EXAMINATION: VITAL SIGNS: Temperature is 98.7, pulse is 80, and blood pressure 129/73. HEENT: PERRLA. NECK: Supple. No lymphadenopathy. CHEST: Bibasilar rales. CARDIOVASCULAR: Regular rate and rhythm. ABDOMEN: Soft. Positive bowel sounds. EXTREMITIES: A 1+ edema. Reflexes equal on both sides. LABORATORY DATA: WBC of 7.4, hemoglobin 8.7, and platelets 180. Sodium 138, potassium 5, BUN of 102, creatinine 6.6, glucose 84, and troponin 0.09. ASSESSMENT AND PLAN: Fluid overload. Dialysis. I have asked admit the patient for fluid overload and the patient is going to dialyzed fairly soon. Dr. Deng has already been consulted for dialysis orders. Dr. Zambrano also been consulted for his behavior issues. Elda Aguiar M.D. DR: ONESIMO JOB#: [id number] CC:
[2018-11-11 04:00] VITALS: BP 142/92
[2018-11-11] MEDS: Sodium Citrate 30ml ORAL SCH ×4 (06:00→18:00)
[2018-11-11 08:00] VITALS: BP 138/78
[2018-11-11] MEDS: Docusate 100mg cap ORAL SCH ×3 (08:53→18:00)
--- NOTE | 2018-11-11 11:17 | Nephrology Progress Note ---
Assessment/Plan Problem List: (1) ESRD (end stage renal disease) (2) Schizophrenia (3) DVT (deep venous thrombosis) (4) Anemia in CKD (chronic kidney disease) Assessment (1) ESRD (end stage renal disease) Noncompliance of patient with renal dialysis - Has right permacath (2) Schizophrenia / Psychiatric disorder (3) Anemia in CKD (chronic kidney disease) (4) h/o DVT Plan dialysis for today Psych management EPO perorders Subjective ROS Limited/Unobtainable: No Objective Objective Last 24 Hour Vital Signs Date Time Temp Pulse Resp B/P (MAP) Pulse Ox O2 Delivery O2 Flow Rate FiO2 11/11/18 08:00 97.7 74 20 138/78 (98) 98 11/11/18 04:00 97.5 81 20 142/92 (109) 98 11/11/18 00:00 97.0 84 20 132/89 (103) 11/10/18 21:00 Room Air 11/10/18 20:00 98.2 85 20 137/79 (98) 11/10/18 16:00 98.1 83 20 147/76 (99) 96 11/10/18 12:00 97.6 78 20 145/78 (100) 96 Intake and Output 11/10/18 11/11/18 19:00 07:00 Intake Total 1875.000 ml 600 ml Output Total 1300 ml 900 ml Balance 575.000 ml -300 ml Intake Oral 1600 ml 600 ml IV Total 275.000 ml Output Urine Total 1300 ml 900 ml # Voids 3 1 Height (Feet): 5 Height (Inches): 8.00 Weight (Pounds): 204 General Appearance: no apparent distress Objective no change Elbert Deng MD Nov 11, 2018 11:17
[2018-11-11 12:00] VITALS: BP 134/79
[2018-11-11 16:00] VITALS: BP 127/70
--- NOTE | 2018-11-11 19:11 | Consultation ---
History of Present Illness General Date patient seen: Nov 11, 2018 Chief Complaint: General Complaint Present Illness Allergies: Coded Allergies: FLUPHENAZINE (Verified Allergy, Unknown, 10/03/18) HALOPERIDOL (Verified Allergy, Unknown, 10/03/18) Medication History Scheduled Apixaban (Eliquis), 2.5 MG PO BID, (Reported) Cholecalciferol (Vitamin D3) (Decara), 25,000 UNIT PO ONCE A WEEK, (Reported) Ferrous Sulfate (Iron), 325 MG PO DAILY, (Reported) Pantoprazole* (Protonix*), 40 MG ORAL DAILY, (Reported) Valproate Sodium (Valproic Acid), 500 MG PO TID, (Reported) Vitamin B Cmplx/Vit C/Folic AC (Nephro-Kyree Tablet), 1 TAB ORAL DAILY, (Reported ) Vitamin B Cmplx/Vit C/Folic AC (Nephro-Kyree Tablet), 1 TAB ORAL DAILY, (Reported ) Miscellaneous Medications Bisacodyl (Dulcolax), 10 MG RC, (Reported) Calcium Acetate (Calcium Acetate), 667 MG PO, (Reported) Patient History Healthcare decision maker Resuscitation status Full Code Advanced Directive on File No Physical Exam Last 24 Hour Vital Signs Date Time Temp Pulse Resp B/P (MAP) Pulse Ox O2 Delivery O2 Flow Rate FiO2 11/11/18 16:00 97.5 82 19 127/70 (89) 94 11/11/18 12:00 98.0 80 21 134/79 (97) 95 11/11/18 09:00 Room Air 11/11/18 08:00 97.7 74 20 138/78 (98) 98 11/11/18 04:00 97.5 81 20 142/92 (109) 98 11/11/18 00:00 97.0 84 20 132/89 (103) 11/10/18 21:00 Room Air 11/10/18 20:00 98.2 85 20 137/79 (98) Intake and Output 11/10/18 11/11/18 18:59 06:59 Intake Total 1875.000 ml 600 ml Output Total 1300 ml 900 ml Balance 575.000 ml -300 ml Intake Oral 1600 ml 600 ml IV Total 275.000 ml Output Urine Total 1300 ml 900 ml # Voids 3 1 Height (Feet): 5 Height (Inches): 8.00 Weight (Pounds): 202 Medications Current Medications Medications (Trade) Dose Ordered Sig/Bee Route PRN Reason Start Time Stop Time Status Last Admin Dose Admin Apixaban (Eliquis) 2.5 mg EVERY 12 HOURS ORAL 11/10/18 10:00 12/10/18 09:59 11/10/18 10:51 Docusate Sodium (Colace) 100 mg THREE TIMES A DAY ORAL 11/10/18 09:00 12/10/18 08:59 11/11/18 08:53 Epoetin Jonas (Procrit (for ESRD on dialysis)) 10,000 units MON-WED-WED SUBQ 11/11/18 21:00 12/11/18 20:59 Lorazepam (Ativan 2mg/ml 1ml) 1 mg Q4H PRN IM For Anxiety 11/10/18 00:30 11/17/18 00:29 Pantoprazole (Protonix) 40 mg DAILY ORAL 11/10/18 09:00 12/10/18 08:59 11/11/18 08:53 Risperidone (RisperDAL) 1 mg BID ORAL 11/10/18 09:00 12/10/18 08:59 11/11/18 08:53 Sodium Citrate (Bicitra) 30 ml EVERY 6 HOURS ORAL 11/10/18 12:00 12/10/18 11:59 Tamsulosin HCl (Flomax) 0.8 mg BEDTIME ORAL 11/10/18 21:00 12/10/18 20:59 11/10/18 21:00 Valproic Acid (Depakene) 500 mg Q8H ORAL 11/10/18 08:00 12/10/18 07:59 11/11/18 08:58 Assessment/Plan Status Narrative Hematology Consultation Date patient seen: 11/11/18 ANAMARIA MD: Jeff Aguiar RFC: Anemia HPI 63 yo male with h/o dvt, esrd on hd, schizophrenia presented from [facility], missed his last 3 HD sessions. Patient is stable, denies any complaints , denies chest pain or sob. Patient labs are stable. nephrology was called by ED. patient has a long hx of noncompliance with HD. denies any BOLIVAR, N/V, Chills/ Fevers. Denies dizziness. Has been intermitted in compliance with his care, heme was consulted for anemia. Was here last week as well. Social hx: reviewed, denies smoking, alcohol use or drug use Fam hx: reviewed, denies any sig past fam hx to me Code status reviewed, would like to remain full code. Coded Allergies: FLUPHENAZINE (Verified Allergy, Unknown, 10/03/18) HALOPERIDOL (Verified Allergy, Unknown, 10/03/18) Medication History Scheduled Apixaban (Eliquis), 2.5 MG PO BID, (Reported) Bisacodyl* (Dulcolax*), 10 MG ORAL ONCE, (Reported) Cholecalciferol (Vitamin D3) (Decara), 25,000 UNIT PO ONCE A WEEK, (Reported) Docusate Sodium* (Docusate Sodium*), 100 MG ORAL THREE TIMES A DAY, (Reported) Ferrous Sulfate (Iron), 325 MG PO DAILY, (Reported) Ferrous Sulfate* (Ferrous Sulfate*), 325 MG ORAL DAILY, (Reported) Pantoprazole* (Protonix*), 40 MG ORAL DAILY, (Reported) Pantoprazole* (Protonix*), 40 MG ORAL DAILY, (Reported) Sennosides (Magui-Rashida), 8.6 MG PO DAILY, (Reported) Valproate Sodium (Valproic Acid), 500 MG PO TID, (Reported) Vitamin B Cmplx/Vit C/Folic AC (Nephro-Kyree Tablet), 1 TAB ORAL DAILY, (Reported ) Vitamin B Cmplx/Vit C/Folic AC (Nephro-Kyree Tablet), 1 TAB ORAL DAILY, (Reported ) Scheduled PRN Ondansetron* (Zofran*), 4 MG ORAL Q6H PRN for Nausea & Vomiting, (Reported) Ondansetron* (Zofran*), 4 MG ORAL Q6H PRN for Nausea & Vomiting, (Reported) Miscellaneous Medications Bisacodyl (Dulcolax), 10 MG RC, (Reported) Calcium Acetate (Calcium Acetate), 667 MG PO, (Reported) Patient History Healthcare decision maker Resuscitation status Full Code Advanced Directive on File No Review of Systems ROS Narrative 14 point ROS reviewed and negative except per the above HPI Physical Exam Last 24 Hour Vital Signs Date Time Temp Pulse Resp B/P (MAP) Pulse Ox O2 Delivery O2 Flow Rate FiO2 11/11/18 16:00 97.5 82 19 127/70 (89) 94 11/11/18 12:00 98.0 80 21 134/79 (97) 95 11/11/18 09:00 Room Air 11/11/18 08:00 97.7 74 20 138/78 (98) 98 11/11/18 04:00 97.5 81 20 142/92 (109) 98 11/11/18 00:00 97.0 84 20 132/89 (103) 11/10/18 21:00 Room Air 11/10/18 20:00 98.2 85 20 137/79 (98) General Appearance: no apparent distress, alert Lines, tubes and drains: peripheral HEENT: normocephalic, atraumatic, anicteric, mucous membranes moist Neck: non-tender, normal alignment, supple, normal inspection Respiratory/Chest: chest wall non-tender, lungs clear, normal breath sounds, no respiratory distress, no accessory muscle use, respiratory distress Cardiovascular/Chest: normal peripheral pulses, normal rate, regular rhythm Abdomen: normal bowel sounds, non tender, soft, no organomegaly, no mass Extremities: normal range of motion, non-tende Skin Exam: normal pigmentation, warm/dry, cyanotic 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 Ferritin at 741-->644 --> No evidence of hemolysis is noted, peripheral smear has been reviewed. --> Hgb goal >7. Transfuse prn. --> Pt received iv iron on prior admission, now ferritin is 704 --> Cont po folic acid daily --> Cont Procrit 3x a week per nephro but has refused before --> trend hgb 7.4-->7.7-->7.9-->8.7-->8.9-->7.9 # DVT. Pt is on eliquis. --> off eliquis as dvt has resolved # ESRD. On HD --> Nephrology is following. Appreciate recs. --> Pt is noncompliant with HD # Psych disorder. Psych to follow. # Hyperkalemia. K 5.0 at admission # Noncompliance significant history --> psych eval Greatly appreciate consultation! Ulices Lanza MD Nov 11, 2018 19:11
[2018-11-11 20:00] VITALS: BP 141/84
[2018-11-11] MEDS ORDERED: Epogen (for ESRD on dialysis) SUBQ SCH (21:00)
[2018-11-11] MEDS: Tamsulosin 0.4mg cap ORAL SCH (22:04)
--- NOTE | 2018-11-11 22:07 | General Progress Note ---
Assessment/Plan Problem List: (1) Schizophrenia ICD Codes: F20.9 - Schizophrenia, unspecified SNOMED: 95776541 Status: unchanged Assessment/Plan cont Risperdal cont Depakote dw primary care and nurse the pt could be dced if primary is in agreement. Subjective Neurologic/Psychiatric: Reports: anxiety, depressed, emotional problems Allergies: Coded Allergies: FLUPHENAZINE (Verified Allergy, Unknown, 10/03/18) HALOPERIDOL (Verified Allergy, Unknown, 10/03/18) Subjective the pt was yelling and stated that he wanted to leave he stated that he doesnt want hd. the pt stated that he was aware of risks and getting worse. Objective Last 24 Hour Vital Signs Date Time Temp Pulse Resp B/P (MAP) Pulse Ox O2 Delivery O2 Flow Rate FiO2 11/11/18 21:00 Room Air 11/11/18 16:00 97.5 82 19 127/70 (89) 94 11/11/18 12:00 98.0 80 21 134/79 (97) 95 11/11/18 09:00 Room Air 11/11/18 08:00 97.7 74 20 138/78 (98) 98 11/11/18 04:00 97.5 81 20 142/92 (109) 98 11/11/18 00:00 97.0 84 20 132/89 (103) Intake and Output 11/10/18 11/11/18 18:59 06:59 Intake Total 1875.000 ml 600 ml Output Total 1300 ml 900 ml Balance 575.000 ml -300 ml Intake Oral 1600 ml 600 ml IV Total 275.000 ml Output Urine Total 1300 ml 900 ml # Voids 3 1 Height (Feet): 5 Height (Inches): 8.00 Weight (Pounds): 202 General Appearance: alert, agitated Panda Zambrano MD Nov 11, 2018 22:06
--- NOTE | 2018-11-11 22:45 | General Progress Note ---
Assessment/Plan Problem List: (1) Pulmonary edema ICD Codes: J81.1 - Chronic pulmonary edema SNOMED: 69881574 Qualifiers: Qualified Codes: J81.1 - Chronic pulmonary edema (2) Noncompliance of patient with renal dialysis ICD Codes: Z91.15 - Patient's noncompliance with renal dialysis SNOMED: 555122363176081 (3) Psychosis ICD Codes: F29 - Unspecified psychosis not due to a substance or known physiological condition SNOMED: 69283730 Qualifiers: Qualified Codes: F29 - Unspecified psychosis not due to a substance or known physiological condition (4) History of schizophrenia ICD Codes: Z86.59 - Personal history of other mental and behavioral disorders SNOMED: 040322661, 122779439 (5) Psychiatric disorder ICD Codes: F99 - Mental disorder, not otherwise specified SNOMED: 49075703, 431167961 (6) Fluid overload ICD Codes: E87.70 - Fluid overload, unspecified SNOMED: 00208337 (7) Psyche disturbed with normal general body function ICD Codes: Z71.1 - Psyche disturbed with normal general body function SNOMED: 61938268 (8) ESRD (end stage renal disease) on dialysis ICD Codes: N18.6 - End stage renal disease; Z99.2 - Dependence on renal dialysis SNOMED: 853252362 (9) Anemia in CKD (chronic kidney disease) ICD Codes: N18.9 - Chronic kidney disease, unspecified; D63.1 - Anemia in chronic kidney disease SNOMED: 604992354, 184688748 Status: progressing Assessment/Plan refused diaylsis and wants to be dc pulm edema noncompliant w diaylsis htn psychosis agitated psych pt dc if of w dr thompson Subjective ROS Limited/Unobtainable: Yes Allergies: Coded Allergies: FLUPHENAZINE (Verified Allergy, Unknown, 10/03/18) HALOPERIDOL (Verified Allergy, Unknown, 10/03/18) Objective Last 24 Hour Vital Signs Date Time Temp Pulse Resp B/P (MAP) Pulse Ox O2 Delivery O2 Flow Rate FiO2 11/11/18 21:00 Room Air 11/11/18 16:00 97.5 82 19 127/70 (89) 94 11/11/18 12:00 98.0 80 21 134/79 (97) 95 11/11/18 09:00 Room Air 11/11/18 08:00 97.7 74 20 138/78 (98) 98 11/11/18 04:00 97.5 81 20 142/92 (109) 98 11/11/18 00:00 97.0 84 20 132/89 (103) Intake and Output 11/10/18 11/11/18 18:59 06:59 Intake Total 1875.000 ml 600 ml Output Total 1300 ml 900 ml Balance 575.000 ml -300 ml Intake Oral 1600 ml 600 ml IV Total 275.000 ml Output Urine Total 1300 ml 900 ml # Voids 3 1 Height (Feet): 5 Height (Inches): 8.00 Weight (Pounds): 202 Cardiovascular: normal rate Respiratory/Chest: lungs clear Elda Aguiar MD Nov 11, 2018 22:45
[2018-11-12] VITALS: BP 138/76
[2018-11-12] MEDS: Sodium Citrate 30ml ORAL SCH ×3 (00:10→12:29)
[2018-11-12 04:00] VITALS: BP 135/78
[2018-11-12 08:00] VITALS: BP 124/68
[2018-11-12] MEDS: Eliquis 2.5mg tablet ORAL SCH (08:43)
[2018-11-12] MEDS: Docusate 100mg cap ORAL SCH ×2 (08:43→12:29)
[2018-11-12 12:04] VITALS: BP 121/71
--- NOTE | 2018-11-12 13:02 | Nephrology Progress Note ---
Assessment/Plan Problem List: (1) ESRD (end stage renal disease) (2) Schizophrenia (3) DVT (deep venous thrombosis) (4) Anemia in CKD (chronic kidney disease) Assessment (1) ESRD (end stage renal disease) Noncompliance of patient with renal dialysis - Has right permacath (2) Schizophrenia / Psychiatric disorder (3) Anemia in CKD (chronic kidney disease) (4) h/o DVT Plan dialysis for 1 patient refused Per Psych management EPO per orders can not add any from renal stand point at this time DC per PMD Subjective ROS Limited/Unobtainable: No Constitutional: Reports: other - uncoaporative Objective Objective Last 24 Hour Vital Signs Date Time Temp Pulse Resp B/P (MAP) Pulse Ox O2 Delivery O2 Flow Rate FiO2 11/12/18 12:04 98.4 86 18 121/71 (88) 96 11/12/18 09:00 Room Air 11/12/18 08:00 98.0 86 18 124/68 (86) 94 11/12/18 04:00 98.7 82 20 135/78 (97) 92 11/12/18 00:00 98.7 80 20 138/76 (96) 94 11/11/18 21:00 Room Air 11/11/18 20:00 97.6 85 20 141/84 (103) 98 11/11/18 16:00 97.5 82 19 127/70 (89) 94 Intake and Output 11/11/18 11/12/18 19:00 07:00 Intake Total 900 ml 480 ml Output Total 1600 ml Balance -700 ml 480 ml Intake Oral 900 ml 480 ml Output Urine Total 1600 ml Height (Feet): 5 Height (Inches): 8.00 Weight (Pounds): 208 General Appearance: no apparent distress Objective no change Elbert Deng MD Nov 12, 2018 13:02
[2018-11-12] MEDS ORDERED: NS 275ml ONE (14:29)
--- NOTE | 2018-11-12 21:56 | General Progress Note ---
Assessment/Plan Assessment/Plan # Anemia of chronic disease due to underlying chronic medical issues, multifactorial --> Anemia w/u has been reviewed. Ferritin at 741-->644 --> No evidence of hemolysis is noted, peripheral smear has been reviewed. --> Hgb goal >7. Transfuse prn. --> Pt received iv iron on prior admission, now ferritin is 704 --> Cont po folic acid daily --> Cont Procrit 3x a week per nephro but has refused before --> trend hgb 7.4-->7.7-->7.9-->8.7-->8.9-->7.9 # DVT. Pt is on eliquis. --> off eliquis as dvt has resolved # ESRD. On HD --> Nephrology is following. Appreciate recs. --> Pt is noncompliant with HD # Psych disorder. Psych to follow. # Hyperkalemia. K 5.0 at admission # Noncompliance significant history --> psych eval Subjective Constitutional: Denies: no symptoms, chills, diaphoresis, fever, malaise, weakness, other HEENT: Denies: no symptoms, eye pain, blurred vision, tearing, double vision, ear pain, ear discharge, nose pain, nose congestion, throat pain, throat swelling, mouth pain, mouth swelling, other Cardiovascular: Denies: no symptoms, chest pain, edema, irregular heart rate, lightheadedness, palpitations, syncope, other Respiratory: Denies: no symptoms, cough, orthopnea, shortness of breath, SOB with excertion, SOB at rest, sputum, stridor, wheezing, other Gastrointestinal/Abdominal: Denies: no symptoms, abdomen distended, abdominal pain, black stools, tarry stools, blood in stool, constipated, diarrhea, difficulty swallowing, nausea, poor appetite, poor fluid intake, rectal bleeding , vomiting, other Genitourinary: Denies: no symptoms, burning, discharge, frequency, flank pain, hematuria, incontinence, pain, urgency, other Neurologic/Psychiatric: Denies: no symptoms, anxiety, depressed, emotional problems, headache, numbness, paresthesia, pre-existing deficit, seizure, tingling, tremors, weakness, other Endocrine: Denies: no symptoms, excessive sweating, flushing, intolerance to cold, intolerance to heat, increased hunger, increased thirst, increased urine, unexplained weight gain, unexplained weight loss, other Hematologic/Lymphatic: Denies: no symptoms, anemia, easy bleeding, easy bruising, other Allergies: Coded Allergies: FLUPHENAZINE (Verified Allergy, Unknown, 10/03/18) HALOPERIDOL (Verified Allergy, Unknown, 10/03/18) Subjective 11/12/18: Pt is seen in the room. Refused dialysis, anxious and agitated. Objective Last 24 Hour Vital Signs Date Time Temp Pulse Resp B/P (MAP) Pulse Ox O2 Delivery O2 Flow Rate FiO2 11/12/18 12:04 98.4 86 18 121/71 (88) 96 11/12/18 09:00 Room Air 11/12/18 08:00 98.0 86 18 124/68 (86) 94 11/12/18 04:00 98.7 82 20 135/78 (97) 92 11/12/18 00:00 98.7 80 20 138/76 (96) 94 Intake and Output 11/11/18 11/12/18 18:59 06:59 Intake Total 900 ml 480 ml Output Total 1600 ml Balance -700 ml 480 ml Intake Oral 900 ml 480 ml Output Urine Total 1600 ml Height (Feet): 5 Height (Inches): 8.00 Weight (Pounds): 208 Objective General Appearance: no apparent distress, alert Lines, tubes and drains: peripheral HEENT: normocephalic, atraumatic, anicteric, mucous membranes moist Neck: non-tender, normal alignment, supple, normal inspection Respiratory/Chest: chest wall non-tender, lungs clear, normal breath sounds, no respiratory distress, no accessory muscle use, respiratory distress Cardiovascular/Chest: normal peripheral pulses, normal rate, regular rhythm Abdomen: normal bowel sounds, non tender, soft, no organomegaly, no mass Extremities: normal range of motion, non-tende Skin Exam: normal pigmentation, warm/dry, cyanotic 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
--- NOTE | 2018-11-15 08:56 | Discharge Summary ---
Discharge Summary Discharge Summary _ DATE OF ADMISSION: 11/09/2018 DATE OF DISCHARGE: 11/12/2018 DISCHARGED BY: Dr. Aguiar REASON FOR ADMISSION: 63 years old male with past medical history of end-stage renal disease, on hemodialysis, schizophrenia, history of DVT, noncompliance, anemia of chronic kidney disease, was brought to emergency department for evaluation. Apparently patient was violent and combative and refused hemodialysis at the intermediate facility. Patient apparently did not take any antipsychotic medication. Upon evaluation patient refused to answer any question. Pulse oximetry was stable on room air. Troponin negative. EKG revealed sinus bradycardia with nonspecific ST-T wave changes. Chest x-ray revealed presence of vascular access/right Perma cath and pulmonary vascular congestion. No leukocytosis, hemoglobin 8.7, hematocrit 26.6. BUN 102, creatinine 6.6 Urine toxicology screen was negative. Urinalysis(patient still making urine) revealed +1 protein , +2 blood, no evidence of UTI. INR 1.1. Patient admitted with diagnoses of fluid overload, end-stage renal disease, psychosis and delirium, schizophrenia, noncompliance with treatment, anemia of chronic kidney disease CONSULTANTS: inside plant supervisor Dr. Deng assistant general manager/oncologist Dr. Lanza psychiatrist [facility] COURSE: Patient admitted. Extension Supervisor was requested for management of hemodialysis. Initially and on 11/11/2018 patient declined hemodialysis. Psychiatric consultation requested. Psychiatrist diagnosed patient with schizophrenia. Patient started on antipsychotic medications, including Risperdal and Depakote. Hemoglobin and hematocrit were closely monitored with goal to keep hemoglobin above 7. Anemia workup revealed evidence of anemia of chronic disease due to underlying chronic medical issues, multifactorial. Ferritin elevated. No evidence of hemolysis. B12 and folate stable. Patient was started on Epogen 3 times in a week. Patient with history of DVT, Eliquis was continued. Patient declined hemodialysis and wanted to be discharged and have hemodialysis as outpatient. Pulse oximetry stable on room air. Repeated renal parameters without change BUN 104 creatinine 6.6. Psychiatrist cleared for discharge if primary will discharge. Patient was subsequently discharged to the intermediate facility with outpatient hemodialysis in am. FINAL DIAGNOSES: Fluid overload due to noncompliance with hemodialysis End-stage renal disease , on hemodialysis Anemia of chronic kidney disease Schizophrenia Noncompliance with hemodialysis and treatment, DISCHARGE MEDICATIONS: See Medication Reconciliation list. DISCHARGE INSTRUCTIONS: Patient was discharged to the intermediate facility. Follow up with medical doctor at the facility. Outpatient hemodialysis. I have been assigned to dictate discharge summary for this account. I was not involved in the patient's management. Kari Torres NP Nov 15, 2018 08:56
== END 2018-11-12 14:30 | DRG 425 ==
LOC: EDBD 16:55 → EMR 17:16 → 4E 21:06 → EDBEDREQ 21:40 → 4E 11-10 18:39
PROC: 5A1D70Z Performance of Urinary Filtration, Intermittent, Less than 6 Hours Per Day (ICD-10-PCS; principal; 2018-11-11)
DX: E87.79 Other fluid overload (principal); J81.1 Chronic pulmonary edema; I12.0 Hypertensive chronic kidney disease with stage 5 chronic kidney disease or end stage renal disease; F20.9 Schizophrenia, unspecified; N18.6 End stage renal disease; Z99.2 Dependence on renal dialysis; Z91.15 Patient's noncompliance with renal dialysis; D63.1 Anemia in chronic kidney disease; Z86.718 Personal history of other venous thrombosis and embolism; Z79.01 Long term (current) use of anticoagulants; Z88.8 Allergy status to other drugs, medicaments and biological substances; E87.5 Hyperkalemia; F29 Unspecified psychosis not due to a substance or known physiological condition; R41.0 Disorientation, unspecified
CPT/HCPCS: 36415; 71045; 80053; 80307; 81003; 82550; 82607; 82728; 82746; 83036; 83540; 83550; 83880; 84100; 84484; 85007; 85025; 85610; 85730; 87081; 96365; 96372; 99285